=== PATIENT | male | born 1945 | race Caucasian/White ===

== ENCOUNTER 2016-10-06 10:59 | Inpatient (IN) | payer MEDICARE ==
[2016-10-06] MEDS ORDERED: NITROGLYCERIN OINT 1 INCH/GM PACKET TOPICAL STA (11:29)
--- NOTE | 2016-10-06 11:33 | ED ---
General Adult HPI - General Chief complaint: Chest Pain Stated complaint: Chest pain Time Seen by Provider: 10/06/16 11:05 Source: patient, RN notes reviewed Mode of arrival: wheelchair Limitations: no limitations - History of Present Illness Initial comments: This is a 71-year-old male who presents emergency Department complaining that on Thursday while pushing a cart at the grocery store he started having chest pain which radiated to both jaws and he became short of breath and diaphoretic. Patient states the pain lasted for about 10 minutes he took a couple aspirin and relaxed and the pain eventually went away. Patient states he hasn't had that particular pain since however he hasn't felt quite right since that time. Patient states yesterday he felt under the weather and just didn't have the energy normally does. Patient denies any chest pain currently. Patient denies any palpitations. Patient denies shortness of breath or difficulty breathing. Patient denies headache patient denies numbness weakness. Patient denies any lightheadedness dizziness or near syncopal episode. Patient denies any abdominal pain patient denies nausea vomiting or diarrhea. Patient denies any recent fever chills or cough per patient does state that he has some postnasal drip. Patient denies any recent injury or trauma. - Related Data Home Medications Medication Instructions Recorded Confirmed Aspirin 325 mg PO DAILY PRN 10/06/16 10/06/16 Lisinopril-Hctz 10-12.5 mg 1 tab PO DAILY 10/06/16 10/06/16 [Zestoretic 10-12.5] Naproxen Sodium [Aleve] 440 mg PO DAILY PRN 10/06/16 10/06/16 Allergies Allergy/AdvReac Type Severity Reaction Status Date / Time No Known Allergies Allergy Verified 10/06/16 11:35 Review of Systems ROS Statement: Those systems with pertinent positive or pertinent negative responses have been documented in the HPI. ROS Other: All systems not noted in ROS Statement are negative. Past Medical History Past Medical History: Hypertension Additional Past Medical History / Comment(s): PE History of Any Multi-Drug Resistant Organisms: None Reported Past Surgical History: Hernia Repair Past Psychological History: No Psychological Hx Reported Smoking Status: Never smoker Past Alcohol Use History: None Reported Past Drug Use History: None Reported General Exam - General Exam Comments Initial Comments: GENERAL: Patient is well-developed and well-nourished. Patient is nontoxic and well- hydrated and is in no acute distress. ENT: Neck is soft and supple. No significant lymphadenopathy is noted. Oropharynx is clear. Moist mucous membranes. Neck has full range of motion without eliciting any pain. EYES: The sclera were anicteric and conjunctiva were pink and moist. Extraocular movements were intact and pupils were equal round and reactive to light. Eyelids were unremarkable. PULMONARY: Unlabored respirations. Good breath sounds bilaterally. No audible rales rhonchi or wheezing was noted. CARDIOVASCULAR: There is a regular rate and rhythm without any murmurs gallops or rubs. ABDOMEN: Soft and nontender with normal bowel sounds. No palpable organomegaly was noted. There is no palpable pulsatile mass. SKIN: Skin is clear with no lesions or rashes and otherwise unremarkable. NEUROLOGIC: Patient is alert and oriented x3. Cranial nerves II through XII are grossly intact. Motor and sensory are also intact. Normal speech, volume and content. Symmetrical smile. MUSCULOSKELETAL: Normal extremities with adequate strength and full range of motion. No lower extremity swelling or edema. No calf tenderness. LYMPHATICS: No significant lymphadenopathy is noted PSYCHIATRIC: Normal psychiatric evaluation. Normal interpersonal interactions appears functionally intact in deals appropriately with others. No signs of depression. No signs of anxiety. Limitations: no limitations Course Vital Signs 10/06/16 10/06/16 11:03 11:43 Temperature 99.9 F H Pulse Rate 90 78 Respiratory 22 18 Rate Blood Pressure 151/79 143/75 O2 Sat by Pulse 96 97 Oximetry Medical Decision Making - Medical Decision Making EKG shows normal sinus rhythm at a rate of 89 bpm IL interval 206 QRS is 84 QT interval 340 QTC is 413 per patient's EKG shows no ST segment elevation or depression or T-wave abdomen is noted. Chest the chest shows no acute abnormality. Patient's troponin came back elevated so I started the patient on heparin immediately. I consider this a non-STEMI I consult the doctor because he agreed to admit the patient I wrote admit orders consult cardiology. - Lab Data Result diagrams: 10/06/16 11:30 10/06/16 11:30 Lab Results 10/06/16 10/06/16 10/06/16 Range/Units 11:30 11:30 11:30 WBC 6.0 (3.8-10.6) k/uL RBC 4.90 (4.30-5.90) m/uL Hgb 15.0 (13.0-17.5) gm/dL Hct 44.8 (39.0-53.0) % MCV 91.4 (80.0-100.0) fL MCH 30.7 (25.0-35.0) pg MCHC 33.6 (31.0-37.0) g/dL RDW 12.8 (11.5-15.5) % Plt Count 211 (150-450) k/uL Neutrophils % 57 % Lymphocytes % 30 % Monocytes % 8 % Eosinophils % 2 % Basophils % 1 % Neutrophils # 3.4 (1.3-7.7) k/uL Lymphocytes # 1.8 (1.0-4.8) k/uL Monocytes # 0.5 (0-1.0) k/uL Eosinophils # 0.1 (0-0.7) k/uL Basophils # 0.0 (0-0.2) k/uL PT (9.0-12.0) sec INR (<1.1) APTT (22.0-30.0) sec Sodium 140 (137-145) mmol/L Potassium 4.1 (3.5-5.1) mmol/L Chloride 106 (98-107) mmol/L Carbon Dioxide 23 (22-30) mmol/L Anion Gap 11 mmol/L BUN 20 (9-20) mg/dL Creatinine 0.87 (0.66-1.25) mg/dL Est GFR (MDRD) Af Amer >60 (>60 ml/min/1.73 sqM) Est GFR (MDRD) Non-Af >60 (>60 ml/min/1.73 sqM) Glucose 109 H (74-99) mg/dL Calcium 9.6 (8.4-10.2) mg/dL Magnesium 2.1 (1.6-2.3) mg/dL Total Bilirubin 1.0 (0.2-1.3) mg/dL AST 25 (17-59) U/L ALT 34 (21-72) U/L Alkaline Phosphatase 57 (38-126) U/L Total Creatine Kinase 75 (55-170) U/L CK-MB (CK-2) 1.9 (0.0-2.4) ng/mL CK-MB (CK-2) Rel Index 2.5 Troponin I 0.253 H* (0.000-0.034) ng/mL Total Protein 7.8 (6.3-8.2) g/dL Albumin 4.5 (3.5-5.0) g/dL 10/06/16 Range/Units 11:30 WBC (3.8-10.6) k/uL RBC (4.30-5.90) m/uL Hgb (13.0-17.5) gm/dL Hct (39.0-53.0) % MCV (80.0-100.0) fL MCH (25.0-35.0) pg MCHC (31.0-37.0) g/dL RDW (11.5-15.5) % Plt Count (150-450) k/uL Neutrophils % % Lymphocytes % % Monocytes % % Eosinophils % % Basophils % % Neutrophils # (1.3-7.7) k/uL Lymphocytes # (1.0-4.8) k/uL Monocytes # (0-1.0) k/uL Eosinophils # (0-0.7) k/uL Basophils # (0-0.2) k/uL PT 10.7 (9.0-12.0) sec INR 1.1 (<1.1) APTT 23.4 (22.0-30.0) sec Sodium (137-145) mmol/L Potassium (3.5-5.1) mmol/L Chloride (98-107) mmol/L Carbon Dioxide (22-30) mmol/L Anion Gap mmol/L BUN (9-20) mg/dL Creatinine (0.66-1.25) mg/dL Est GFR (MDRD) Af Amer (>60 ml/min/1.73 sqM) Est GFR (MDRD) Non-Af (>60 ml/min/1.73 sqM) Glucose (74-99) mg/dL Calcium (8.4-10.2) mg/dL Magnesium (1.6-2.3) mg/dL Total Bilirubin (0.2-1.3) mg/dL AST (17-59) U/L ALT (21-72) U/L Alkaline Phosphatase (38-126) U/L Total Creatine Kinase (55-170) U/L CK-MB (CK-2) (0.0-2.4) ng/mL CK-MB (CK-2) Rel Index Troponin I (0.000-0.034) ng/mL Total Protein (6.3-8.2) g/dL Albumin (3.5-5.0) g/dL Critical Care Time Critical Care Time: Yes Total Critical Care Time: 35 Disposition Clinical Impression: Non-STEMI (non-ST elevated myocardial infarction) Disposition: ADMITTED IP TO THIS [facility] Time of Disposition: 12:44
[2016-10-06] MEDS: ASPIRIN 81 MG CHEW PO STA ×2 (11:36→11:42)
[2016-10-06 11:47] LABS: Basophils % (A) 1 %; CH 31.7; CHCM 34.8; Eosinophils # (A) 0.1 k/uL (0-0.7); Eosinophils % (A) 2 %; HCT 44.8 % (39.0-53.0); HDW 2.34; Luc # (Auto) 0.14; Luc % (Auto) 2; Lymphocytes # (A) 1.8 k/uL (1.0-4.8); Lymphocytes % (A) 30 %; MCH 30.7 pg (25.0-35.0); MCHC 33.6 g/dL (31.0-37.0); MCV 91.4 fL (80.0-100.0); Mean Platelet Volume 7.1; Monocytes # (A) 0.5 k/uL (0-1.0); Monocytes % (A) 8 %; Neutrophils # (A) 3.4 k/uL (1.3-7.7); Neutrophils % (A) 57 %; RDW 12.8 % (11.5-15.5); WBC (Perox) 5.84
[2016-10-06 11:55] LABS: ALT 34 U/L (21-72); AST 25 U/L (17-59); Alkaline Phosphatase 57 U/L (38-126); Anion Gap 11 mmol/L; Blood Urea Nitrogen 20 mg/dL (9-20); Calcium 9.6 mg/dL (8.4-10.2); Carbon Dioxide 23 mmol/L (22-30); Chloride 106 mmol/L (98-107); Glucose 109 mg/dL (74-99); Magnesium 2.1 mg/dL (1.6-2.3); Non-African American GFR(MDRD) >60 (>60 ml/min/1.73 sqM); Potassium 4.1 mmol/L (3.5-5.1); Sodium 140 mmol/L (137-145); Total Protein 7.8 g/dL (6.3-8.2)
--- NOTE | 2016-10-06 12:12 | XR ---
EXAMINATION TYPE: XR chest 2V DATE OF EXAM: 10/06/2016 12:08 PM HISTORY: Chest Pain. REFERENCE: NONE. FINDINGS: There are mild increased markings throughout the chest. There is no focal pneumonia or chano a. The heart is not enlarged. No pleural fluid is seen. There is a questionable 1 cm nodule at the le ft lung base. There is hypertrophic spondylosis within the spine. IMPRESSION: QUESTIONABLE LEFT LOWER LOBE PULMONARY NODULE. A CT SCAN OF THE CHEST WOULD BE SUGGESTED.
[2016-10-06 12:19] LABS: INR 1.1 (<1.1); Partial Thromboplastin Time 23.4 sec (22.0-30.0); Prothrombin Time 10.7 sec (9.0-12.0)
[2016-10-06 12:29] LABS: Creatine Kinase MB 1.9 ng/mL (0.0-2.4)
[2016-10-06 12:33] LABS: Troponin I 0.253 ng/mL (0.000-0.034)
[2016-10-06] MEDS ORDERED: HEPARIN SODIUM,PORCINE 5,000 UNIT/ML 1 ML VIAL IV ONE (12:33)
--- NOTE | 2016-10-06 14:21 | P.CRDCN ---
History of Present Illness Consult date: 10/06/16 Chief complaint: Chest discomfort History of present illness: This is a pleasant 71-year-old male patient with a past medical history significant for hypertension presented to the emergency room complaining of chest discomfort. He was in his usual state of health where he was doing some shopping at [employer] on Thursday and felt a squeezing sensation in the chest radiated to the neck and the jaw and was associated with sweating. He called his primary care physician today and the patient was referred to the emergency room. The EKG showed sinus rhythm with nonspecific changes in the inferior leads. The blood work came in to be abnormal showing abnormal troponin. I recommended proceeding with heart catheterization. Past Medical History Past Medical History: Hypertension Additional Past Medical History / Comment(s): PE History of Any Multi-Drug Resistant Organisms: None Reported Past Surgical History: Hernia Repair Past Psychological History: No Psychological Hx Reported Smoking Status: Never smoker Past Alcohol Use History: None Reported Past Drug Use History: None Reported Medications and Allergies Home Medications Medication Instructions Recorded Confirmed Type Aspirin 325 mg PO DAILY PRN 10/06/16 10/06/16 History Lisinopril-Hctz 10-12.5 mg 1 tab PO DAILY 10/06/16 10/06/16 History [Zestoretic 10-12.5] Naproxen Sodium [Aleve] 440 mg PO DAILY PRN 10/06/16 10/06/16 History Allergies Allergy/AdvReac Type Severity Reaction Status Date / Time No Known Allergies Allergy Verified 10/06/16 11:35 Physical Exam - Constitutional General appearance: no acute distress - Respiratory Respiratory: bilateral: CTA - Cardiovascular Rhythm: regular Heart sounds: normal: S1, S2 Results 10/06/16 11:30 10/06/16 11:30 Current Medications Generic Name Dose Route Start Last Admin Trade Name Freq PRN Reason Stop Dose Admin Aspirin 325 mg 10/07/16 09:00 Aspirin PO DAILY [facility] Heparin Sodium/Dextrose 25,000 500 mls @ 19.98 mls/hr 10/06/16 12:45 unit/ IV Solution IV .Q24H [facility] Protocol 11.3 UNITS/KG/HR Nitroglycerin 1 inch 10/06/16 18:00 Nitro-Bid Oint TOPICAL Q6HR [facility] Nitroglycerin 0.4 mg 10/06/16 12:44 Nitrostat SUBLINGUAL Q5M PRN Chest Pain Assessment and Plan Plan: Assessment Acute non-STEMI Hypertension Plan I recommended proceeding with heart catheterization
[2016-10-06] MEDS: HEPARIN SODIUM,PORCINE/D5W PMX 25,000 UNIT in DEXTROSE/WATER 1 500ML.BAG IV SCH ×2 (14:27→17:46)
[2016-10-06] MEDS ORDERED: IV FLUID CONTINUATION 1,000 ML IV ONE (14:30)
[2016-10-06] MEDS ORDERED: MIDAZOLAM 2 MG/2 ML VIAL ONE ×2 (14:55→15:31)
[2016-10-06] MEDS ORDERED: MIDAZOLAM 2 MG/2 ML VIAL IV ONE ×2 (15:07→15:33)
[2016-10-06] MEDS ORDERED: LIDOCAINE 2% INJ 20 MG/ML IV ONE (15:10)
[2016-10-06] MEDS ORDERED: IOHEXOL 350 MG/ML 125ML BOTTLE INJ ONE (15:46)
[2016-10-06] MEDS ORDERED: RX INFO: IV CONTRAST WAS GIVEN 1 EACH MISC MISCELLANE PRN (15:48)
[2016-10-06] MEDS ORDERED: SODIUM CHLORIDE 0.9% 1,000 ML IV SCH (16:00)
[2016-10-06] MEDS ORDERED: MD COMMUNICATION TO PHARMACY 1 EACH MISC PO ONE (16:18)
--- NOTE | 2016-10-06 16:21 | P.GSCN ---
History of Present Illness Consult date: 10/06/16 Reason for Consult: evaluation for coronary artery bypass grafting Requesting physician: Denys Morales History of present illness: patient is a 71 years old gentleman with past medical history of hypertension who experienced an episode of chest pain while shopping at the [employer] on Thursday. Patient presented to the emergency room today sent by his primary care physician and was found to have positive troponin with mild EKG changes. Cardiac position performed showed significant LAD and circumflex disease. Cardiac surgical consult was called. Patient denies any prior chest pain. Review of Systems - Cardiovascular Reports chest pain, Reports high blood pressure Past Medical History Past Medical History: Hypertension Additional Past Medical History / Comment(s): PE after hernia surgery 20y ago History of Any Multi-Drug Resistant Organisms: None Reported Past Surgical History: Hernia Repair Past Psychological History: No Psychological Hx Reported Smoking Status: Never smoker Past Alcohol Use History: None Reported Past Drug Use History: None Reported Medications and Allergies Home Medications Medication Instructions Recorded Confirmed Type Aspirin 325 mg PO DAILY PRN 10/06/16 10/06/16 History Lisinopril-Hctz 10-12.5 mg 1 tab PO DAILY 10/06/16 10/06/16 History [Zestoretic 10-12.5] Naproxen Sodium [Aleve] 440 mg PO DAILY PRN 10/06/16 10/06/16 History Allergies Allergy/AdvReac Type Severity Reaction Status Date / Time No Known Allergies Allergy Verified 10/06/16 11:35 Surgical - Exam Vital Signs Temp Pulse Resp BP Pulse Ox 99.9 F H 90 22 151/79 96 10/06/16 11:03 10/06/16 11:03 10/06/16 11:03 10/06/16 11:03 10/06/16 11:03 - General well developed, well nourished, no distress - Eyes normal ocular movement, no icteric - ENT no hearing loss, no congestion - Neck no masses, trachea midline - Respiratory normal respiratory effort, clear to auscultation - Cardiovascular Rhythm: regular Heart Sounds: normal: S1, S2 - Abdomen Abdomen: soft, non tender, no guarding, no rigid, no rebound - Genitourinary deferred - Rectum deferred - Neurologic normal coordination patient has no peripheral edema. He has no varicose veins. He has a positive modified Hi's test on the left and negative on the right Results - Labs 10/06/16 11:30 10/06/16 11:30 - Imaging Additional studies: cardiac catheterization showed preserved left ventricle function and severe disease of the LAD with aneurysmal medication beyond that involving an close to the moderate size second marginal with a JER 2 flow in the LAD. There is a significant proximal circumflex stenosis. The RCA is dominant with no flow- limiting lesion Assessment and Plan Plan: 71s old gentleman who presented with non-ST elevation myocardial infarction and significant double vessel coronary artery disease. Preserved left ventricular function. Patient candidate for coronary artery bypass grafting during this admission. We'll be initiating preoperative workup. We'll be following the patient closely with you. Thank you for the privilege of this consult
--- NOTE | 2016-10-06 17:34 | US ---
EXAMINATION TYPE: US CAROTID DUPLEX BILAT DATE OF EXAM: 10/06/2016 5:01 PM COMPARISON: NONE CLINICAL HISTORY: Ankle Brachial Index (DAVID) . Pre op cardiac surgery EXAM MEASUREMENTS: RIGHT: Peak Systolic Velocity (PSV) cm/sec ----- Right CCA: 59.2 ----- Right ICA: 81.2 ----- Right ECA: 99.5 ICA/CCA ratio: 1.4 RIGHT: End Diastole cm/sec ----- Right CCA: 12.1 ----- Right ICA: 25.2 ----- Right ECA: 8.9 LEFT: Peak Systolic Velocity (PSV) cm/sec ----- Left CCA: 76.8 ----- Left ICA: 79.0 ----- Left ECA: 135.5 ICA/CCA ratio: 1.0 LEFT: End Diastole cm/sec ----- Left CCA: 17.5 ----- Left ICA: 19.7 ----- Left ECA: 7.9 VERTEBRALS (direction of flow): Right Vertebral: Antegrade Left Vertebral: Antegrade IMPRESSION: 1. MILD PLAQUE NOTED BILATERAL BIFURCATIONS. 2. SLIGHTLY INCREASED VELOCITIES LEFT ECA. 3. NEGATIVE FOR SIGNIFICANT CAROTID STENOSIS.
[2016-10-06 18:23] LABS: Creatine Kinase MB 1.2 ng/mL (0.0-2.4)
[2016-10-06 18:30] LABS: Troponin I 0.179 ng/mL (0.000-0.034)
[2016-10-06] MEDS: NITROGLYCERIN OINT 1 INCH/GM PACKET TOPICAL SCH (18:46)
--- NOTE | 2016-10-06 19:08 | P.CNPUL ---
History of Present Illness Consult date: 10/06/16 Requesting physician: Felicitas Boo Reason for consult: other (preoperative pulmonary clearance) Chief complaint: chest pain History of present illness: survey 71-year-old white male with history of hypertension, remote history of pulmonary embolism following hernia surgery, patient was on anticoagulation therapy for one year. At that time he was taken care of by Dr. Rehman. Since then, the patient did not have any history to suggest any thromboembolic disease. Patient presented with acute onset of chest pain while shopping at the [employer] on Thursday, upon presentation to the ER, patient was found to have positive troponin and EKG changes. Cardiac catheterization showed significant LAD and circumflex disease. Patient was seen by surgery on consultation, and he is scheduled to undergo surgery sometime later this week. Pulmonary-ernandez patient has no history of COPD, he is a nonsmoker, physically active, can even run a mile before this episode of chest pain. No cough no wheezing no shortness of breath. Patient did have remote history of pulmonary embolism about 20 years ago provoked by hernia surgery. Presently the patient is asymptomatic, no pulmonary symptoms, no headaches no blurred vision no dizziness. No nausea no vomiting no abdominal pain no melena no hematemesis is no dysuria frequency or urgency. Chest x-ray questioned a small tiny nodule, I reviewed the chest x-ray, the finding is not significant, I believe this is more of a summation shadow or could be a nipple shadow, but patient this can be addressed with x-rays with nipple markers, and down the line if the nodule is true one can consider CT of the chest, but at this point I don't see the value of a CT of the chest.index of suspicion for malignancy is rather low. Review of Systems 14 point review of systems were obtained, please refer to pertinent positives and negatives as per HPI. Past Medical History Past Medical History: Hypertension Additional Past Medical History / Comment(s): PE after hernia surgery 20y ago History of Any Multi-Drug Resistant Organisms: None Reported Past Surgical History: Hernia Repair Past Psychological History: No Psychological Hx Reported Smoking Status: Never smoker Past Alcohol Use History: None Reported Past Drug Use History: None Reported Medications and Allergies Home Medications Medication Instructions Recorded Confirmed Type Aspirin 325 mg PO DAILY PRN 10/06/16 10/06/16 History Lisinopril-Hctz 10-12.5 mg 1 tab PO DAILY 10/06/16 10/06/16 History [Zestoretic 10-12.5] Naproxen Sodium [Aleve] 440 mg PO DAILY PRN 10/06/16 10/06/16 History Allergies Allergy/AdvReac Type Severity Reaction Status Date / Time No Known Allergies Allergy Verified 10/06/16 11:35 Physical Exam Vitals: Vital Signs Temp Pulse Pulse Resp BP BP Pulse Ox 10/06/16 18:25 98 F 79 18 124/76 96 10/06/16 17:40 20 136/72 98 10/06/16 17:10 18 136/70 98 10/06/16 16:40 18 137/70 98 10/06/16 16:25 18 141/70 98 10/06/16 16:10 18 136/79 98 10/06/16 15:55 18 131/68 98 10/06/16 14:29 97.8 F 98 18 137/65 98 10/06/16 13:33 87 18 135/57 98 Intake and Output 10/06/16 10/06/16 10/06/16 06:59 14:59 22:59 Intake Total 60 250 Output Total 250 Balance 60 0 Intake: IV 50 100 Sodium Chloride 0.9% 1, 100 000 ml @ 100 mls/hr IV . Q10H [facility] Rx#:[id number] Amount of Fluid Infused ( 10 ml) Oral 150 Output: Urine 250 Physical Exam: Revealed a 71-year-old white male in no distress. HEENT:[Neck is supple.] [No neck masses.] [No thyromegaly.] [No JVD.] Chest: [Clear throughout, no crackles, no rhonchi, no wheezes.] Cardiac Exam: [Normal S1 and S2, no S3 gallop, no murmur.] Abdomen: [Soft, nontender, no megaly, no rebound, no guarding, normal bowel sounds.] Extremities: [No clubbing, no edema, no cyanosis.] Neurological Exam: [No focal neurologic deficit.] Results - Laboratory Findings CBC and BMP: 10/06/16 11:30 10/06/16 11:30 PT/INR, D-dimer PT 10.7 sec (9.0-12.0) 10/06/16 11:30 INR 1.1 (<1.1) 10/06/16 11:30 Abnormal lab findings: Abnormal Labs 10/06/16 17:22 Troponin I 0.179 H* - Diagnostic Findings Chest x-ray: image reviewed Assessment and Plan Plan: impression: 1 acute non-ST elevation myocardial infarction, 2.vessel coronary artery disease with preserved LV function 3 nonspecific left lower lobe pulmonary nodule could be a summation shadow or could be a nipple shadow, recommend in the next 48 hours follow-up chest x-ray with nipple markers/left nipple. Granted, patient will need surgery, and he'll be cleared for surgery, the nodule could be monitored on outpatient basis. 4. Remote history of pulmonary embolism provoked by hernia surgery, patient did not require long-term course of anticoagulation therapy. And has been free of any thromboembolic disease for the last 20 years. Recommendation: Patient will be cleared for surgery, considered low operative risk. Time with Patient: Greater than 30
[2016-10-06 20:24] LABS: Appearance,Urine Clear (Clear); Bilirubin,Urine Negative (Negative); Glucose,Urine (UA) Negative (Negative); Ketones,Urine Negative (Negative); Leukocyte Esterase,Urine Negative (Negative); Nitrite,Urine Negative (Negative); Protein,Urine Negative (Negative); Specific Gravity,Urine 1.012 (1.001-1.035); UA Billing (MACRO vs. MICRO) CHEM; Urobilinogen,Urine <2.0 mg/dL (<2.0)
[2016-10-06] MEDS: ATORVASTATIN 80 MG TAB PO SCH (20:37)
[2016-10-06] MEDS: METOPROLOL TARTRATE 12.5 MG TAB PO SCH (20:37)
[2016-10-07] MEDS: NITROGLYCERIN OINT 1 INCH/GM PACKET TOPICAL SCH ×5 (00:04→16:58)
[2016-10-07 00:17] LABS: Creatine Kinase MB 1.1 ng/mL (0.0-2.4)
[2016-10-07 00:19] LABS: Troponin I 0.195 ng/mL (0.000-0.034)
[2016-10-07] MEDS ORDERED: HEPARIN SODIUM,PORCINE 5,000 UNIT/ML 1 ML VIAL IV STA (01:06)
[2016-10-07 06:59] LABS: Basophils % (A) 0 %; Eosinophils # (A) 0.1 k/uL (0-0.7); Eosinophils % (A) 1 %; HCT 42.3 % (39.0-53.0); HDW 2.34; HGB 14.3 gm/dL (13.0-17.5); Luc # (Auto) 0.13; Luc % (Auto) 2; Lymphocytes # (A) 1.8 k/uL (1.0-4.8); Lymphocytes % (A) 23 %; MCHC 33.8 g/dL (31.0-37.0); MCV 91.7 fL (80.0-100.0); Mean Platelet Volume 7.3; Monocytes # (A) 0.6 k/uL (0-1.0); Monocytes % (A) 8 %; Neutrophils # (A) 5.3 k/uL (1.3-7.7); Neutrophils % (A) 66 %; RBC 4.61 m/uL (4.30-5.90); RDW 12.6 % (11.5-15.5)
[2016-10-07 07:03] LABS: INR 1.1 (<1.1); Partial Thromboplastin Time 76.2 sec (22.0-30.0); Prothrombin Time 11.4 sec (9.0-12.0)
[2016-10-07 07:07] LABS: ALT 33 U/L (21-72); AST 23 U/L (17-59); Alkaline Phosphatase 49 U/L (38-126); Anion Gap 7 mmol/L; Blood Urea Nitrogen 17 mg/dL (9-20); Calcium 9.3 mg/dL (8.4-10.2); Carbon Dioxide 24 mmol/L (22-30); Chloride 105 mmol/L (98-107); Cholesterol 202 mg/dL (<200); Glucose 109 mg/dL (74-99); HDL Cholesterol 39 mg/dL (40-60); Non-African American GFR(MDRD) >60 (>60 ml/min/1.73 sqM); Potassium 4.2 mmol/L (3.5-5.1); Sodium 136 mmol/L (137-145); Total Protein 6.7 g/dL (6.3-8.2); Triglycerides 157 mg/dL (<150)
--- NOTE | 2016-10-07 07:49 | CC ---
DATE OF SERVICE: 10/06/2016 PERFORMING PHYSICIAN: Denys Morales MD, Tank Truck Milk Receiver. PROCEDURE PERFORMED: 1. Selective right and left coronary angiogram. 2. Left heart catheterization. 3. Left ventriculography. INDICATION: This is a pleasant 71-year-old gentleman with a past medical history significant for hypertension, who presented to the hospital with chest discomfort. The EKG showed only nonspecific changes in the inferior leads. The cardiac enzymes were checked and came in to be slightly abnormal. The patient was ruled out for acute non-ST elevation myocardial infarction. APPROACH: Right common femoral artery. COMPLICATIONS: None. LEVEL OF SEDATION: Moderate. PROCEDURE DESCRIPTION: After obtaining an informed consent, the patient was brought to the Cardiac Sales Team Recruiter. Right common femoral artery was cannulated using micropuncture technique. The micropuncture wire passed easily, then I placed a 6 Armenian sheath in the right common femoral artery. Subsequently, I did selective right and left coronary angiogram using JR4 and JL4 catheters. After that, I did left heart catheterization and LV gram using a 6 Armenian pigtail catheter. The procedure was completed without any complication. Also, I did a left heart catheterization and LV gram using a 6 Armenian pigtail catheter. SELECTIVE CORONARY ANGIOGRAM: 1. The right coronary artery is a large-caliber vessel and it is a dominant vessel. The proximal RCA appeared to have mild disease only. The mid RCA appeared to have mild disease only as well. The RCA distally by the bifurcation of PDA and PLV branch has a lesion that seems to be in the range of 50%. The PDA branch and PLV branch appeared to have mild disease only. 2. The left main is angiographically normal. It bifurcates into the left circumflex and left anterior descending artery. 3. The left circumflex is a large-caliber vessel and it is a nondominant vessel. The proximal left circumflex appeared to have mild disease only. The mid left circumflex appeared to have a critical lesion in the range of 80% to 90%. The circ distally appeared to be angiographically normal. 4. The proximal LAD by the bifurcation of a large diag branch appears to have a critical lesion in the range of 90% to 95%. There was aneurysm seen after the lesion. The lesion is a long tubular lesion. The LAD distally appeared to be angiographically normally. The first diag branch of the LAD appears to have mild disease only. HEMODYNAMICS: The left ventricular end-diastolic pressure was of 14 mmHg and no gradient was identified across the aortic valve. Left ventriculography was performed in the FELIX projection and using a power injection. The left ventricular systolic function seems to be normal with an ejection fraction in the range of 50% to 55%. I could not see any obvious wall motion abnormalities. CONCLUSION: 1. 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 2. Intermediate disease involving the distal right coronary artery. 3. Preserved left ventricular systolic function. 4. Normal left ventricular end-diastolic pressure. POSTPROCEDURE MANAGEMENT: I consulted Dr. Jay to evaluate the patient for coronary artery bypass grafting.
[2016-10-07 08:23] LABS: Hemoglobin A1C 5.7 % (4.2-6.1)
[2016-10-07] MEDS: METOPROLOL TARTRATE 12.5 MG TAB PO SCH ×2 (08:23→20:29)
[2016-10-07] MEDS: ASPIRIN 325 MG TAB PO SCH (08:23)
[2016-10-07 08:24] LABS: Hepatitis B Surface Ag Index 0.05
[2016-10-07 08:29] LABS: Hepatitis B Core IgM Index 0.06
[2016-10-07 08:41] LABS: Hepatitis C Virus IgG Index 0.01
[2016-10-07 08:45] LABS: Hepatitis C Virus IgG Ab Negative (Negative)
--- NOTE | 2016-10-07 12:24 | ECHOF ---
Referral Reason:pre-op cabg MEASUREMENTS -------- HEIGHT: 172.7 cm WEIGHT: 88.0 kg BP: 133/77 IVSd: 1.6 cm (0.6 - 1.1) LVIDd: 3.1 cm (3.9 - 5.3) LVPWd: 1.5 cm (0.6 - 1.1) IVSs: 1.7 cm LVIDs: 1.5 cm LVPWs: 1.8 cm Ao Diam: 3.6 cm (2.0 - 3.7) AV Cusp: 2.4 cm (1.5 - 2.6) LA Diam: 3.4 cm (2.7 - 3.8) MV EXCURSION: 12.148 mm (> 18.000) MV EF SLOPE: 68 mm/s (70 - 150) EPSS: 0.4 cm MV E Alex: 0.64 m/s MV DecT: 188 ms MV A Alex: 0.72 m/s MV E/A Ratio: 0.88 RAP: 5.00 mmHg RVSP: 11.16 mmHg FINDINGS -------- Sinus rhythm. This was a technically good study. There is moderate concentric left ventricular hypertrophy. Overall left ventricular systolic function is normal with, an EF between 55 - 60 %. The right ventricle is normal in size and function. The left atrium is normal in size. The right atrium is normal in size. Aortic valve is trileaflet and is mildly thickened. The mitral valve leaflets are mildly thickened. There is trace mitral regurgitation. Trace tricuspid regurgitation present. The right ventricular systolic pressure, as measured by Doppler, is 11.16mmHg. Pulmonic valve appears structurally normal. The aortic root size is normal. The pericardium is normal. CONCLUSIONS -------- 1. Sinus rhythm. 2. Trace tricuspid regurgitation present. 3. The right ventricular systolic pressure, as measured by Doppler, is 11.16mmHg. 4. Pulmonic valve appears structurally normal. 5. The aortic root size is normal. 6. The pericardium is normal. 7. This was a technically good study. 8. There is moderate concentric left ventricular hypertrophy. 9. The right ventricle is normal in size and function. 10. The left atrium is normal in size. 11. The right atrium is normal in size. 12. Aortic valve is trileaflet and is mildly thickened. 13. The mitral valve leaflets are mildly thickened. 14. There is trace mitral regurgitation. CONSUMER INSIGHT ANALYST: Brenda Cristina RDCS
--- NOTE | 2016-10-07 14:27 | P.PN ---
Subjective Principal diagnosis: Coronary artery disease, patient is scheduled to undergo CABG in 2 days. 71-year-old white male with history of hypertension, remote history of pulmonary embolism following hernia surgery, patient was on anticoagulation therapy for one year. At that time he was taken care of by Dr. Rehman. Since then, the patient did not have any history to suggest any thromboembolic disease. Patient presented with acute onset of chest pain while shopping at the [employer] on Thursday, upon presentation to the ER, patient was found to have positive troponin and EKG changes. Cardiac catheterization showed significant LAD and circumflex disease. Patient was seen by surgery on consultation, and he is scheduled to undergo surgery sometime later this week. Pulmonary-ernandez patient has no history of COPD, he is a nonsmoker, physically active, can even run a mile before this episode of chest pain. No cough no wheezing no shortness of breath. Patient did have remote history of pulmonary embolism about 20 years ago provoked by hernia surgery. Presently the patient is asymptomatic, no pulmonary symptoms, no headaches no blurred vision no dizziness. No nausea no vomiting no abdominal pain no melena no hematemesis is no dysuria frequency or urgency. Chest x-ray questioned a small tiny nodule, I reviewed the chest x-ray, the finding is not significant, I believe this is more of a summation shadow or could be a nipple shadow, but patient this can be addressed with x-rays with nipple markers, and down the line if the nodule is true one can consider CT of the chest, but at this point I don't see the value of a CT of the chest.index of suspicion for malignancy is rather low. On 10/07/2016, patient continues to do well, no cough no wheezing no shortness of breath, I did recommend repeat chest x-ray with nipple markers on the left side , and if necessary, may order a CT of the chest without contrast. However, presence of a tiny nodule should not delay any plans for anticipated surgery for CABG. A shunt has no pulmonary symptoms whatsoever. Labs from today were all reviewed including a normal CBC and normal basic metabolic profile. Heparin is therapeutic with a PTT of 45.9. Objective - Vital Signs Vital signs: Vital Signs Temp 96.8 F L 10/07/16 11:59 Pulse 68 10/07/16 11:59 Resp 20 10/07/16 11:59 BP 118/68 10/07/16 11:59 Pulse Ox 96 10/07/16 11:59 Intake & Output 10/06/16 10/07/16 10/07/16 18:59 06:59 18:59 Intake Total 310 1259.564 311.480 Output Total 250 1750 550 Balance 60 -490.436 -238.520 Weight 88 kg Intake: IV 150 1113.71 Heparin Sodium,Porcine/ 113.71 D5w Pmx 25,000 unit In Dextrose/Water 1 500ml. bag @ 11.3 UNITS/KG/HR 19 .98 mls/hr IV .Q24H [facility] Rx#:[id number] Sodium Chloride 0.9% 1, 100 1000 000 ml @ 100 mls/hr IV . Q10H [facility] Rx#:[id number] Amount of Fluid Infused ( 10 ml) Intake, IV Titration 145.854 311.480 Amount Heparin Sodium,Porcine/ 145.854 311.480 D5w Pmx 25,000 unit In Dextrose/Water 1 500ml. bag @ 11.3 UNITS/KG/HR 19 .98 mls/hr IV .Q24H [facility] Rx#:[id number] Oral 150 Output: Urine 250 1750 550 Other: Voiding Method Urinal # Voids 1 - Exam Physical Exam: Revealed a 71-year-old white male in no distress. HEENT:[Neck is supple.] [No neck masses.] [No thyromegaly.] [No JVD.] Chest: [Clear throughout, no crackles, no rhonchi, no wheezes.] Cardiac Exam: [Normal S1 and S2, no S3 gallop, no murmur.] Abdomen: [Soft, nontender, no megaly, no rebound, no guarding, normal bowel sounds.] Extremities: [No clubbing, no edema, no cyanosis.] Neurological Exam: [No focal neurologic deficit.] - Labs CBC & Chem 7: 10/07/16 05:56 10/07/16 05:56 Labs: Abnormal Lab Results - Last 24 Hours (Table) 10/06/16 10/06/16 10/06/16 Range/Units 17:22 23:09 23:09 APTT 32.9 H (22.0-30.0) sec Sodium (137-145) mmol/L Glucose (74-99) mg/dL Troponin I 0.179 H* 0.195 H* (0.000-0.034) ng/mL Triglycerides (<150) mg/dL Cholesterol (<200) mg/dL LDL Cholesterol, Calc (0-99) mg/dL HDL Cholesterol (40-60) mg/dL 10/07/16 10/07/16 10/07/16 Range/Units 05:56 05:56 13:30 APTT 76.2 H 45.9 H (22.0-30.0) sec Sodium 136 L (137-145) mmol/L Glucose 109 H (74-99) mg/dL Troponin I (0.000-0.034) ng/mL Triglycerides 157 H (<150) mg/dL Cholesterol 202 H (<200) mg/dL LDL Cholesterol, Calc 132 H (0-99) mg/dL HDL Cholesterol 39 L (40-60) mg/dL Microbiology - Last 24 Hours (Table) 10/06/16 20:15 Urine Culture - Preliminary Urine,Clean Catch Assessment and Plan Plan: impression: 1 acute non-ST elevation myocardial infarction, 2.2vessel coronary artery disease with preserved LV function 3 nonspecific left lower lobe pulmonary nodule could be a summation shadow or could be a nipple shadow, recommend in the next 48 hours follow-up chest x-ray with nipple markers/left nipple. Granted, patient will need surgery, and he'll be cleared for surgery, the nodule could be monitored on outpatient basis. 4. Remote history of pulmonary embolism provoked by hernia surgery, patient did not require long-term course of anticoagulation therapy. And has been free of any thromboembolic disease for the last 20 years. Recommendation: Patient will be cleared for surgery, considered low operative risk. Time with Patient: Less than 30
[2016-10-07] MEDS: HEPARIN SODIUM,PORCINE/D5W PMX 25,000 UNIT in DEXTROSE/WATER 1 500ML.BAG IV SCH (15:22)
--- NOTE | 2016-10-07 15:27 | P.HPIM ---
History of Present Illness H&P Date: 10/07/16 Chief Complaint: Chest pain 8-year-old gentleman with history of hypertension remote history of PE comes in to the hospital with complaints of one episode of chest pain while he was at a grocery store 2 days prior to admission. Patient was walking into my are noted significant pressure in his chest radiating to his neck with associated diaphoresis. Patient thereafter went home and did not feel his self for the next 2 days hence came in to the hospital Thursday as recommended by his primary care physician. Patient was noted to have a positive troponin in the emergency room with subtle EKG changes cardiac catheterization was done on a semi-emergent basis was noted to have double vessel disease with significant LAD stenosis and circumflex disease patient was referred to the surgical team for consideration for CABG. Chest x-ray does reveal a pulmonary nodule. Today patient states that he is symptom free denies headaches blurry vision nausea vomiting diarrhea patient has never had history of tobacco use or exposure Review of Systems All systems: negative (Noted in HPI) Past Medical History Past Medical History: Hypertension Additional Past Medical History / Comment(s): PE after hernia surgery 20y ago, SEASONAL ALLERGIES History of Any Multi-Drug Resistant Organisms: None Reported Past Surgical History: Hernia Repair Additional Past Surgical History / Comment(s): RT INGUINAL HERNIA REPAIR Past Anesthesia/Blood Transfusion Reactions: No Reported Reaction Past Psychological History: No Psychological Hx Reported Additional Psychological History / Comment(s): PT LIVES WITH HIS IN S SINGLE STORY HOME THAT HAS 2 STEPS IN WHICH TO ENTER.NO PETS.PT IS INDEPENDANT. NO OUTSIDE SERVICES. NO HOPSITAL EQUIPMENT.PT SERVED IN THE [employer] WHEN YOUNGER. 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 Smoking Status: Never smoker Past Alcohol Use History: None Reported Past Drug Use History: None Reported - Past Family History Father Family Medical History: Congestive Heart Failure (CHF) Additional Family Medical History / Comment(s): AT AGE 90-CHF Mother Family Medical History: Congestive Heart Failure (CHF) Additional Family Medical History / Comment(s): IN HER 70'S-CHF Medications and Allergies Home Medications Medication Instructions Recorded Confirmed Type Aspirin 325 mg PO DAILY PRN 10/06/16 10/06/16 History Lisinopril-Hctz 10-12.5 mg 1 tab PO DAILY 10/06/16 10/06/16 History [Zestoretic 10-12.5] Naproxen Sodium [Aleve] 440 mg PO DAILY PRN 10/06/16 10/06/16 History Allergies Allergy/AdvReac Type Severity Reaction Status Date / Time No Known Allergies Allergy Verified 10/06/16 11:35 Physical Exam Vitals: Vital Signs Temp Pulse Pulse Resp BP BP Pulse Ox 10/07/16 11:59 96.8 F L 68 20 118/68 96 10/07/16 08:00 96.8 F L 73 20 125/67 94 L 10/07/16 03:59 97.3 F L 88 18 106/66 94 L 10/07/16 00:00 98.5 F 72 18 133/77 95 10/06/16 20:00 18 10/06/16 19:33 98.8 F 83 18 140/73 95 10/06/16 18:25 98 F 79 18 124/76 96 10/06/16 17:40 20 136/72 98 10/06/16 17:10 18 136/70 98 10/06/16 16:40 18 137/70 98 10/06/16 16:25 18 141/70 98 10/06/16 16:10 18 136/79 98 10/06/16 15:55 18 131/68 98 Intake and Output 10/07/16 10/07/16 10/07/16 06:59 14:59 22:59 Intake Total 1259.564 311.480 Output Total 525 550 Balance 734.564 -238.520 Intake: IV 1113.71 Heparin Sodium,Porcine/ 113.71 D5w Pmx 25,000 unit In Dextrose/Water 1 500ml. bag @ 11.3 UNITS/KG/HR 19 .98 mls/hr IV .Q24H [facility] Rx#:[id number] Sodium Chloride 0.9% 1, 1000 000 ml @ 100 mls/hr IV . Q10H [facility] Rx#:[id number] Intake, IV Titration 145.854 311.480 Amount Heparin Sodium,Porcine/ 145.854 311.480 D5w Pmx 25,000 unit In Dextrose/Water 1 500ml. bag @ 11.3 UNITS/KG/HR 19 .98 mls/hr IV .Q24H [facility] Rx#:[id number] Output: Urine 525 550 Other: Voiding Method Urinal # Voids 1 Weight 88 kg Physical exam Gen. appearance oriented 3 in no distress Neck is supple no JVD Lungs good air entry clear to auscultation no rhonchi or wheezing Heart S1-S2 heard regular rate and rhythm no murmurs appreciated Abdomen is soft nontender no organomegaly bowel sounds are intact Neurologically cranial nerves II-12 grossly intact no focal motor or sensory deficits noted Skin no abnormalities appreciated Results CBC & Chem 7: 10/07/16 05:56 10/07/16 05:56 Labs: Abnormal Lab Results - Last 24 Hours (Table) 10/06/16 10/06/16 10/06/16 Range/Units 17:22 23:09 23:09 APTT 32.9 H (22.0-30.0) sec Sodium (137-145) mmol/L Glucose (74-99) mg/dL Troponin I 0.179 H* 0.195 H* (0.000-0.034) ng/mL Triglycerides (<150) mg/dL Cholesterol (<200) mg/dL LDL Cholesterol, Calc (0-99) mg/dL HDL Cholesterol (40-60) mg/dL Crossmatch 10/07/16 10/07/16 10/07/16 Range/Units 05:56 05:56 05:56 APTT 76.2 H (22.0-30.0) sec Sodium 136 L (137-145) mmol/L Glucose 109 H (74-99) mg/dL Troponin I (0.000-0.034) ng/mL Triglycerides 157 H (<150) mg/dL Cholesterol 202 H (<200) mg/dL LDL Cholesterol, Calc 132 H (0-99) mg/dL HDL Cholesterol 39 L (40-60) mg/dL Crossmatch See Detail 10/07/16 Range/Units 13:30 APTT 45.9 H (22.0-30.0) sec Sodium (137-145) mmol/L Glucose (74-99) mg/dL Troponin I (0.000-0.034) ng/mL Triglycerides (<150) mg/dL Cholesterol (<200) mg/dL LDL Cholesterol, Calc (0-99) mg/dL HDL Cholesterol (40-60) mg/dL Crossmatch Microbiology - Last 24 Hours (Table) 10/07/16 08:15 Nasal Screen MRSA/MSSA ([facility]) - Preliminary Nasal Swab 10/06/16 20:15 Urine Culture - Preliminary Urine,Clean Catch Thrombosis Risk Factor Assmnt - Choose All That Apply Any of the Below Risk Factors Present?: Yes Each Factor Represents 1 point: Acute OR, Obesity (BMI >25) Other Risk Factors: Yes Each Risk Factor Represents 2 Points: Age 61-74 years Other congenital or acquired thrombophilia - If yes, enter type in comment: No Thrombosis Risk Factor Assessment Total Risk Factor Score: 4 Thrombosis Risk Factor Assessment Level: Moderate Risk Assessment and Plan Plan: #1 non-Q-wave myocardial infarction that is acute #2 history of pulmonary embolism that appears to be provoked her 3 history of hypertension #4 left lower lobe pulmonary nodule Plan Patient is being evaluated for an open heart surgery on Continue ongoing care patient is symptom-free aspirin to be continued DVT prophylaxis
--- NOTE | 2016-10-07 15:55 | P.PN ---
Subjective Principal diagnosis: Chest pain This is a pleasant 71-year-old gentleman with past medical history significant for hypertension who presented to the hospital with symptoms of chest discomfort. He was taken to the cardiac catheterization lab yesterday by Dr. James where he was found to have critical two-vessel coronary artery disease involving the mid left circumflex and proximal LAD with aneurysmal LAD in that area as well. Intermediate disease in the distal right coronary artery. Cardiothoracic surgery was consulted and patient will be scheduled to undergo coronary artery bypass grafting surgery on . Patient was seen and examined this morning, denies any chest pain or difficulty in breathing. He has been up ambulating without any difficulty. Objective - Vital Signs Vital signs: Vital Signs Temp 96.8 F L 10/07/16 11:59 Pulse 68 10/07/16 11:59 Resp 20 10/07/16 11:59 BP 118/68 10/07/16 11:59 Pulse Ox 96 10/07/16 11:59 Intake & Output 10/06/16 10/07/16 10/07/16 18:59 06:59 18:59 Intake Total 310 1259.564 311.480 Output Total 250 1750 550 Balance 60 -490.436 -238.520 Weight 88 kg Intake: IV 150 1113.71 Heparin Sodium,Porcine/ 113.71 D5w Pmx 25,000 unit In Dextrose/Water 1 500ml. bag @ 11.3 UNITS/KG/HR 19 .98 mls/hr IV .Q24H [facility] Rx#:[id number] Sodium Chloride 0.9% 1, 100 1000 000 ml @ 100 mls/hr IV . Q10H [facility] Rx#:[id number] Amount of Fluid Infused ( 10 ml) Intake, IV Titration 145.854 311.480 Amount Heparin Sodium,Porcine/ 145.854 311.480 D5w Pmx 25,000 unit In Dextrose/Water 1 500ml. bag @ 11.3 UNITS/KG/HR 19 .98 mls/hr IV .Q24H [facility] Rx#:[id number] Oral 150 Output: Urine 250 1750 550 Other: Voiding Method Urinal # Voids 1 - Exam PHYSICAL EXAMINATION: HEENT: Head is atraumatic, normocephalic. Pupils equal, round. Neck is supple. There is no elevated jugular venous pressure. HEART EXAMINATION: Heart S1, S2 normal. No murmur or gallop heard. CHEST EXAMINATION: Lungs are clear to auscultation and precussion. No chest wall tenderness is noted on palpation or with deep breathing. ABDOMEN: Soft, nontender. Bowel sounds are heard. No organomegaly noted. Right groin soft, no evidence of any hematoma. EXTREMITIES: 2+ peripheral pulses with no evidence of peripheral edema and no calf tenderness noted. NEUROLOGIC patient is awake, alert and oriented -3. . - Labs CBC & Chem 7: 10/07/16 05:56 10/07/16 05:56 Labs: Abnormal Lab Results - Last 24 Hours (Table) 10/06/16 10/06/16 10/06/16 Range/Units 17:22 23:09 23:09 APTT 32.9 H (22.0-30.0) sec Sodium (137-145) mmol/L Glucose (74-99) mg/dL Troponin I 0.179 H* 0.195 H* (0.000-0.034) ng/mL Triglycerides (<150) mg/dL Cholesterol (<200) mg/dL LDL Cholesterol, Calc (0-99) mg/dL HDL Cholesterol (40-60) mg/dL Crossmatch 10/07/16 10/07/16 10/07/16 Range/Units 05:56 05:56 05:56 APTT 76.2 H (22.0-30.0) sec Sodium 136 L (137-145) mmol/L Glucose 109 H (74-99) mg/dL Troponin I (0.000-0.034) ng/mL Triglycerides 157 H (<150) mg/dL Cholesterol 202 H (<200) mg/dL LDL Cholesterol, Calc 132 H (0-99) mg/dL HDL Cholesterol 39 L (40-60) mg/dL Crossmatch See Detail 10/07/16 Range/Units 13:30 APTT 45.9 H (22.0-30.0) sec Sodium (137-145) mmol/L Glucose (74-99) mg/dL Troponin I (0.000-0.034) ng/mL Triglycerides (<150) mg/dL Cholesterol (<200) mg/dL LDL Cholesterol, Calc (0-99) mg/dL HDL Cholesterol (40-60) mg/dL Crossmatch Microbiology - Last 24 Hours (Table) 10/06/16 20:15 Urine Culture - Preliminary Urine,Clean Catch Assessment and Plan (1) S/P cardiac cath Status: Acute (2) 2-vessel coronary artery disease Status: Acute (3) HTN (hypertension) Status: Acute (4) Hyperlipemia Status: Acute (5) Non-STEMI (non-ST elevated myocardial infarction) Status: Acute Plan: From cardiology standpoint, we will continue the patient on his current medications. He will be scheduled to undergo coronary bypass grafting surgery on . We will continue to follow. DNP note has been reviewed, I agree with a documented findings and plan of care. Patient was seen and examined.
--- NOTE | 2016-10-07 16:19 | P.PN ---
Subjective Principal diagnosis: Non-STEMI. Preoperative coronary artery bypass graft surgery. Patient sitting up in bed in no apparent distress. is at bedside. Preoperative teaching initiated and reinforced. All questions answered. Objective - Vital Signs Vital signs: Vital Signs Temp 96.9 F L 10/07/16 15:28 Pulse 96 10/07/16 15:28 Resp 20 10/07/16 15:28 BP 125/67 10/07/16 15:28 Pulse Ox 93 L 10/07/16 15:28 Intake & Output 10/06/16 10/07/16 10/07/16 18:59 06:59 18:59 Intake Total 310 1259.564 715.592 Output Total 250 1750 550 Balance 60 -490.436 165.592 Weight 88 kg Intake: IV 150 1113.71 Heparin Sodium,Porcine/ 113.71 D5w Pmx 25,000 unit In Dextrose/Water 1 500ml. bag @ 11.3 UNITS/KG/HR 19 .98 mls/hr IV .Q24H [facility] Rx#:[id number] Sodium Chloride 0.9% 1, 100 1000 000 ml @ 100 mls/hr IV . Q10H [facility] Rx#:[id number] Amount of Fluid Infused ( 10 ml) Intake, IV Titration 145.854 337.592 Amount Heparin Sodium,Porcine/ 145.854 337.592 D5w Pmx 25,000 unit In Dextrose/Water 1 500ml. bag @ 11.3 UNITS/KG/HR 19 .98 mls/hr IV .Q24H [facility] Rx#:[id number] Oral 150 378 Output: Urine 250 1750 550 Other: Voiding Method Urinal # Voids 1 - Constitutional General appearance: Present: cooperative, no acute distress - Respiratory Details: Lungs sounds diminished bilaterally. Respirations even, nonlabored. Currently on room air. - Cardiovascular Details: S1, S2 present. Regular rate and rhythm, normal sinus rhythm on telemetry. No edema present. Right groin site soft, nontender. - Gastrointestinal Gastrointestinal Comment(s): Abdomen soft, nontender, nondistended. Active bowel sounds 4 quadrants. Tolerating diet. - Genitourinary Genitourinary Comment(s): Voiding clear, yellow urine per urinal. - Musculoskeletal Musculoskeletal: Present: gait normal, strength equal bilaterally - Psychiatric Psychiatric: Present: A&O x's 3, appropriate affect, intact judgment & insight - Allied health notes Allied health notes reviewed: nursing - Labs CBC & Chem 7: 10/07/16 05:56 10/07/16 05:56 Labs: Abnormal Lab Results - Last 24 Hours (Table) 10/06/16 10/06/16 10/06/16 Range/Units 17:22 23:09 23:09 APTT 32.9 H (22.0-30.0) sec Sodium (137-145) mmol/L Glucose (74-99) mg/dL Troponin I 0.179 H* 0.195 H* (0.000-0.034) ng/mL Triglycerides (<150) mg/dL Cholesterol (<200) mg/dL LDL Cholesterol, Calc (0-99) mg/dL HDL Cholesterol (40-60) mg/dL Crossmatch 10/07/16 10/07/16 10/07/16 Range/Units 05:56 05:56 05:56 APTT 76.2 H (22.0-30.0) sec Sodium 136 L (137-145) mmol/L Glucose 109 H (74-99) mg/dL Troponin I (0.000-0.034) ng/mL Triglycerides 157 H (<150) mg/dL Cholesterol 202 H (<200) mg/dL LDL Cholesterol, Calc 132 H (0-99) mg/dL HDL Cholesterol 39 L (40-60) mg/dL Crossmatch See Detail 10/07/16 Range/Units 13:30 APTT 45.9 H (22.0-30.0) sec Sodium (137-145) mmol/L Glucose (74-99) mg/dL Troponin I (0.000-0.034) ng/mL Triglycerides (<150) mg/dL Cholesterol (<200) mg/dL LDL Cholesterol, Calc (0-99) mg/dL HDL Cholesterol (40-60) mg/dL Crossmatch Microbiology - Last 24 Hours (Table) 10/07/16 08:15 Nasal Screen MRSA/MSSA ([facility]) - Preliminary Nasal Swab 10/06/16 20:15 Urine Culture - Preliminary Urine,Clean Catch - Imaging and Cardiology Chest x-ray: report reviewed, image reviewed Echo, carotid Dopplers reviewed. Assessment and Plan (1) History of pulmonary embolism Status: Acute (2) HTN (hypertension) Status: Acute (3) Hyperlipemia Status: Acute (4) Non-STEMI (non-ST elevated myocardial infarction) Status: Acute (5) S/P cardiac cath Status: Acute Plan: 1. Preoperative workup completed and reviewed. 2. Preoperative teaching initiated and reinforced. All questions answered. 3. Continue aspirin, statin, beta hua, heparin drip. 4. Patient is scheduled for urgent off-pump coronary artery bypass grafting on , 10/09/2016. 5. 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 6. Incentive spirometry encouraged. 7. Supportive care. 8. More recommendations as patient progresses. Time with Patient: Greater than 30
[2016-10-07] MEDS: ATORVASTATIN 80 MG TAB PO SCH (20:29)
[2016-10-07 20:47] LABS: Glucose,Whole Blood 115 mg/dL (75-99)
[2016-10-07] MEDS: MUPIROCIN 2% OINT 22 GM TUBE NASAL SCH (23:58)
[2016-10-08] MEDS: NITROGLYCERIN OINT 1 INCH/GM PACKET TOPICAL SCH ×5 (00:34→23:14)
[2016-10-08 05:41] LABS: Glucose,Whole Blood 119 mg/dL (75-99)
[2016-10-08] MEDS: METOPROLOL TARTRATE 12.5 MG TAB PO SCH ×2 (08:19→22:02)
[2016-10-08] MEDS: ASPIRIN 325 MG TAB PO SCH (08:20)
[2016-10-08] MEDS: MUPIROCIN 2% OINT 22 GM TUBE NASAL SCH ×2 (08:20→22:02)
--- NOTE | 2016-10-08 09:30 | XR ---
EXAMINATION TYPE: XR chest 2V DATE OF EXAM: 10/08/2016 7:23 AM COMPARISON: Prior chest x-ray one October 2016 HISTORY: Abnormal chest x-ray TECHNIQUE: Frontal and lateral views of the chest are obtained. FINDINGS: There is no focal air space opacity, pleural effusion, or pneumothorax seen. The cardiac silhouette size is within normal limits. The osseous structures are intact. IMPRESSION: The previously identified nodular density at the left lung base is not seen with certain ty and may represent nipple shadow. Nipple markers are noted.
--- NOTE | 2016-10-08 12:36 | P.PN ---
Subjective Principal diagnosis: Coronary artery disease, patient is scheduled to undergo CABG in 24 hours 71-year-old white male with history of hypertension, remote history of pulmonary embolism following hernia surgery, patient was on anticoagulation therapy for one year. At that time he was taken care of by Dr. Rehman. Since then, the patient did not have any history to suggest any thromboembolic disease. Patient presented with acute onset of chest pain while shopping at the [employer] on Thursday, upon presentation to the ER, patient was found to have positive troponin and EKG changes. Cardiac catheterization showed significant LAD and circumflex disease. Patient was seen by surgery on consultation, and he is scheduled to undergo surgery sometime later this week. Pulmonary-ernandez patient has no history of COPD, he is a nonsmoker, physically active, can even run a mile before this episode of chest pain. No cough no wheezing no shortness of breath. Patient did have remote history of pulmonary embolism about 20 years ago provoked by hernia surgery. Presently the patient is asymptomatic, no pulmonary symptoms, no headaches no blurred vision no dizziness. No nausea no vomiting no abdominal pain no melena no hematemesis is no dysuria frequency or urgency. Chest x-ray questioned a small tiny nodule, I reviewed the chest x-ray, the finding is not significant, I believe this is more of a summation shadow or could be a nipple shadow, but patient this can be addressed with x-rays with nipple markers, and down the line if the nodule is true one can consider CT of the chest, but at this point I don't see the value of a CT of the chest.index of suspicion for malignancy is rather low. On 10/07/2016, patient continues to do well, no cough no wheezing no shortness of breath, I did recommend repeat chest x-ray with nipple markers on the left side , and if necessary, may order a CT of the chest without contrast. However, presence of a tiny nodule should not delay any plans for anticipated surgery for CABG. A shunt has no pulmonary symptoms whatsoever. Labs from today were all reviewed including a normal CBC and normal basic metabolic profile. Heparin is therapeutic with a PTT of 45.9. On 11/04/2016, patient continues to do well, asymptomatic, no cough no wheezing no shortness of breath, reviewed the results of his chest x-ray done today, no worrisome findings to speak of. patient was clearly ready for surgery and I believe is scheduled tomorow. Objective - Vital Signs Vital signs: Vital Signs Temp 97.5 F L 10/08/16 11:37 Pulse 67 10/08/16 11:37 Resp 20 10/08/16 11:37 BP 135/75 10/08/16 11:37 Pulse Ox 95 10/08/16 11:37 Intake & Output 10/07/16 10/08/16 10/08/16 18:59 06:59 18:59 Intake Total 715.592 562.772 180 Output Total 550 250 Balance 165.592 312.772 180 Weight 88 kg Intake: IV 283.92 Heparin Sodium,Porcine/ 283.92 D5w Pmx 25,000 unit In Dextrose/Water 1 500ml. bag @ 11.3 UNITS/KG/HR 19 .98 mls/hr IV .Q24H [facility] Rx#:[id number] Intake, IV Titration 337.592 278.852 Amount Heparin Sodium,Porcine/ 337.592 278.852 D5w Pmx 25,000 unit In Dextrose/Water 1 500ml. bag @ 11.3 UNITS/KG/HR 19 .98 mls/hr IV .Q24H [facility] Rx#:[id number] Oral 378 180 Output: Urine 550 250 Other: Voiding Method Urinal - Exam Physical Exam: Revealed a 71-year-old white male in no distress. HEENT:[Neck is supple.] [No neck masses.] [No thyromegaly.] [No JVD.] Chest: [Clear throughout, no crackles, no rhonchi, no wheezes.] Cardiac Exam: [Normal S1 and S2, no S3 gallop, no murmur.] Abdomen: [Soft, nontender, no megaly, no rebound, no guarding, normal bowel sounds.] Extremities: [No clubbing, no edema, no cyanosis.] Neurological Exam: [No focal neurologic deficit.] - Labs CBC & Chem 7: 10/07/16 05:56 10/07/16 05:56 Labs: Abnormal Lab Results - Last 24 Hours (Table) 10/07/16 10/07/16 10/07/16 Range/Units 05:56 13:30 19:42 APTT 45.9 H 46.5 H (22.0-30.0) sec POC Glucose (mg/dL) (75-99) mg/dL Crossmatch See Detail 10/07/16 10/08/16 10/08/16 Range/Units 20:45 01:54 05:40 APTT 62.1 H (22.0-30.0) sec POC Glucose (mg/dL) 115 H 119 H (75-99) mg/dL Crossmatch Microbiology - Last 24 Hours (Table) 10/06/16 20:15 Urine Culture - Final Urine,Clean Catch 10/07/16 08:15 Nasal Screen MRSA/MSSA ([facility]ALINO) - Preliminary Nasal Swab Assessment and Plan Plan: impression: 1 acute non-ST elevation myocardial infarction, 2.2vessel coronary artery disease with preserved LV function 3 nonspecific left lower lobe pulmonary nodule not seen on chest x-ray today which was done in the department with nipple markers. 4. Remote history of pulmonary embolism provoked by hernia surgery, patient did not require long-term course of anticoagulation therapy. And has been free of any thromboembolic disease for the last 20 years. Recommendation: Patient will be cleared for surgery, considered low operative risk. Time with Patient: Less than 30
--- NOTE | 2016-10-08 14:45 | P.PN ---
Subjective Principal diagnosis: Chest pain This is a pleasant 71-year-old gentleman with past medical history significant for hypertension who presented to the hospital with symptoms of chest discomfort. He was taken to the cardiac catheterization lab yesterday by Dr. James where he was found to have critical two-vessel coronary artery disease involving the mid left circumflex and proximal LAD with aneurysmal LAD in that area as well. Intermediate disease in the distal right coronary artery. Cardiothoracic surgery was consulted and patient will be scheduled to undergo coronary artery bypass grafting surgery on . Patient was seen and examined this morning, denies any chest pain or difficulty in breathing. He has been up ambulating without any difficulty. Objective - Vital Signs Vital signs: Vital Signs Temp 97.5 F L 10/08/16 11:37 Pulse 67 10/08/16 11:37 Resp 20 10/08/16 11:37 BP 135/75 10/08/16 11:37 Pulse Ox 95 10/08/16 11:37 Intake & Output 10/07/16 10/08/16 10/08/16 18:59 06:59 18:59 Intake Total 715.592 562.772 180 Output Total 550 250 Balance 165.592 312.772 180 Weight 88 kg Intake: IV 283.92 Heparin Sodium,Porcine/ 283.92 D5w Pmx 25,000 unit In Dextrose/Water 1 500ml. bag @ 11.3 UNITS/KG/HR 19 .98 mls/hr IV .Q24H [facility] Rx#:[id number] Intake, IV Titration 337.592 278.852 Amount Heparin Sodium,Porcine/ 337.592 278.852 D5w Pmx 25,000 unit In Dextrose/Water 1 500ml. bag @ 11.3 UNITS/KG/HR 19 .98 mls/hr IV .Q24H [facility] Rx#:[id number] Oral 378 180 Output: Urine 550 250 Other: Voiding Method Urinal - Exam PHYSICAL EXAMINATION: HEENT: Head is atraumatic, normocephalic. Pupils equal, round. Neck is supple. There is no elevated jugular venous pressure. HEART EXAMINATION: Heart S1, S2 normal. No murmur or gallop heard. CHEST EXAMINATION: Lungs are clear to auscultation and precussion. No chest wall tenderness is noted on palpation or with deep breathing. ABDOMEN: Soft, nontender. Bowel sounds are heard. No organomegaly noted. Right groin soft, no evidence of any hematoma. EXTREMITIES: 2+ peripheral pulses with no evidence of peripheral edema and no calf tenderness noted. NEUROLOGIC patient is awake, alert and oriented -3. . - Labs CBC & Chem 7: 10/07/16 05:56 10/07/16 05:56 Labs: Abnormal Lab Results - Last 24 Hours (Table) 10/07/16 10/07/16 10/07/16 Range/Units 05:56 19:42 20:45 APTT 46.5 H (22.0-30.0) sec POC Glucose (mg/dL) 115 H (75-99) mg/dL Crossmatch See Detail 10/08/16 10/08/16 Range/Units 01:54 05:40 APTT 62.1 H (22.0-30.0) sec POC Glucose (mg/dL) 119 H (75-99) mg/dL Crossmatch Microbiology - Last 24 Hours (Table) 10/06/16 20:15 Urine Culture - Final Urine,Clean Catch 10/07/16 08:15 Nasal Screen MRSA/MSSA (ROSALINO) - Preliminary Nasal Swab Assessment and Plan (1) S/P cardiac cath Status: Acute (2) 2-vessel coronary artery disease Status: Acute (3) HTN (hypertension) Status: Acute (4) Hyperlipemia Status: Acute (5) Non-STEMI (non-ST elevated myocardial infarction) Status: Acute Plan: From cardiology standpoint, we will continue the patient on his current medications. He will be scheduled to undergo coronary bypass grafting surgery on . We will continue to follow. DNP note has been reviewed, I agree with a documented findings and plan of care. Patient was seen and examined.
[2016-10-08] MEDS: PANTOPRAZOLE 40 MG TABLET PO SCH (16:06)
[2016-10-08] MEDS: NITROGLYCERIN SL TABS 0.4 MG TAB SUBLINGUAL PRN ×2 (21:07→21:13)
[2016-10-08] MEDS ORDERED: ALPRAZolam 0.25 MG TAB PO STA (21:39)
[2016-10-08] MEDS ORDERED: MELATONIN 3 MG TABLET PO SCH (21:45)
[2016-10-08] MEDS: ATORVASTATIN 80 MG TAB PO SCH (22:02)
--- NOTE | 2016-10-08 22:51 | PN ---
HOSPITAL COURSE/SUBJECTIVE DATA: This is a 71-year-old gentleman who came into the hospital with chest discomfort. Patient underwent a cardiac catheterization due to NSTEMI. Patient was noted to have critical two-vessel disease and an aneurysmal LAD. Due to the aneurysm in LAD, patient was referred for cardiothoracic surgery. With the patient being admitted for an NSTEMI, patient was scheduled for a coronary artery bypass graft on this admission. Patient is scheduled to undergo the procedure tomorrow. Denies having any chest pain, headaches, blurry vision, nausea, vomiting, diarrhea at this time. PHYSICAL EXAM: VITALS: Temperature 97.5, heart rate 67, respiratory rate 20, blood pressure 135/75. Saturating 95% on room air. GENERALLY: Patient appears to be alert, oriented x3. HEENT: The pupils are equal and reactive to light and accommodation. HEART: S1, S2 present. No murmur appreciated. LUNGS: Good air entry. No wheezing or rhonchi noted. ABDOMINAL EXAM: Soft, nontender, no organomegaly appreciated. GENITOURINARY: No Chandler in place. EXTREMITIES: Pulses can be palpated distally. Denies any tenderness on gross palpation. SKIN: On a gross skin exam does not appear to have any purpura or any skin rashes that were noted. NEUROLOGICALLY: Grossly cranial nerves 2-12 intact. No motor or sensory deficits noted. Laboratory data include hemoglobin 14.3, hematocrit 42.3, white count 8, platelets of 201. Sodium 136, potassium 4.2, chloride 105, bicarb 24. BUN 17, creatinine 0.80. ASSESSMENT AND PLAN: 1. Aby-TT-zfjtifn-elevation myocardial infarction, status post catheterization; noted to have critical two- vessel disease and left anterior descending coronary artery aneurysm. 2. Hypertension. 3. Dyslipidemia. PLAN: Patient is cleared for surgery tomorrow in the a.m. Patient underwent preoperative testing. Will follow the clinical course. Patient will be admitted to Cardiothoracic Surgery tomorrow during and thereafter for postsurgical management.
[2016-10-09] MEDS ORDERED: CLEVIDIPINE BUTYRATE 25 MG in EMPTY BAG 1 BAG IV PRN (05:00)
[2016-10-09] MEDS ORDERED: PROTAMINE SULFATE 10 MG/ML 25 ML VIAL IV PRN (05:00)
[2016-10-09] MEDS ORDERED: INSULIN REGULAR 100 UNIT in SODIUM CHLORIDE 0.9% 100 ML IV PRN (05:00)
[2016-10-09] MEDS ORDERED: ceFAZolin 2 GM in SODIUM CHLORIDE 0.9% 30 ML IVPB PRN (05:00)
[2016-10-09] MEDS ORDERED: ceFAZolin 1,000 MG in SODIUM CHLORIDE 0.9% IRRIGATIO 1,000 ML IRRIGATION PRN (05:00)
[2016-10-09] MEDS ORDERED: PROTAMINE SULFATE 250 MG in EMPTY BAG 1 BAG IV PRN (05:00)
[2016-10-09] MEDS ORDERED: MAGNESIUM SULFATE SYG 4.06 MEQ/ML SYRINGE IV PRN (05:00)
[2016-10-09] MEDS ORDERED: ALBUMIN HUMAN 25% 50 ML in EMPTY BAG 1 BAG IVPB PRN (05:00)
[2016-10-09] MEDS ORDERED: HEPARIN SODIUM 1,000 UNIT/ML VIAL IV PRN (05:00)
[2016-10-09] MEDS ORDERED: PAPAVERINE 360 MG in SODIUM CHLORIDE 0.9% 90 ML IV PRN (05:00)
[2016-10-09] MEDS ORDERED: PROPOFOL 500 MG in EMPTY BAG 1 BAG IV PRN (05:00)
[2016-10-09] MEDS ORDERED: METOPROLOL TARTRATE 12.5 MG TAB PO ONE (05:00)
[2016-10-09] MEDS ORDERED: ceFAZolin 2,000 MG in SODIUM CHLORIDE 0.9% 30 ML IVPB PRN (05:00)
[2016-10-09] MEDS ORDERED: ALBUMIN HUMAN 5% 500 ML in EMPTY BAG 1 BAG IVPB PRN ×6 (05:00)
[2016-10-09] MEDS ORDERED: NOREPINEPHRIN 4 MG-0.9% NS PMX 4 MG/250 ML ML IV PRN (05:00)
[2016-10-09] MEDS ORDERED: CHLORHEXIDINE GLUCONATE 15 ML CUP MUCOUS MEM PRN (05:00)
[2016-10-09] MEDS ORDERED: HEPARIN SODIUM,PORCINE 5,000 UNIT in SODIUM CHLORIDE 0.9% 500 ML IV PRN (05:00)
[2016-10-09] MEDS ORDERED: PHENYLEPHRINE-0.9% NACL SYG 1 MG/10 ML SYRINGE IV PRN ×4 (05:00)
[2016-10-09] MEDS ORDERED: NITROGLYCERIN-D5W PMX 25 MG/250 ML BTL IV PRN (05:00)
[2016-10-09] MEDS ORDERED: PHENYLEPHRINE 40 MG in SODIUM CHLORIDE 0.9% 250 ML IV PRN (05:00)
[2016-10-09] MEDS ORDERED: CALCIUM CHLORIDE 100 MG/ML 10 ML SYRINGE IVP PRN (05:00)
[2016-10-09] MEDS ORDERED: ASPIRIN 325 MG TAB PO ONE (05:00)
[2016-10-09] MEDS ORDERED: NITROGLYCERIN-D5W PMX 50 MG in DEXTROSE/WATER 1 250ML.BAG IV PRN (05:00)
[2016-10-09] MEDS ORDERED: SODIUM BICARB 8.4% 50 ML SYR (1 MEQ/ML) IV PRN (05:00)
[2016-10-09] MEDS ORDERED: ATORVASTATIN 10 MG TAB PO ONE (05:00)
[2016-10-09] MEDS: NITROGLYCERIN OINT 1 INCH/GM PACKET TOPICAL SCH ×2 (05:56→13:56)
[2016-10-09] MEDS ORDERED: MAGNESIUM SULFATE 4 MEQ/ML 2 ML VIAL ONE (07:55)
[2016-10-09] MEDS ORDERED: SODIUM CHLORIDE 0.9% IRRIG 1,000 ML BTL IRRIGATION ONE (07:55)
[2016-10-09] MEDS ORDERED: HEPARIN SODIUM,PORCINE 10,000 UNIT/ML 1 ML VIAL ONE (07:55)
[2016-10-09] MEDS ORDERED: POTASSIUM CHLORIDE OPEN HEART 20 MEQ/50 ML BAG IVPB ONE (07:55)
[2016-10-09] MEDS ORDERED: SODIUM BICARB 8.4% 50 ML SYR (1 MEQ/ML) ONE (07:55)
[2016-10-09] MEDS ORDERED: VECURONIUM 10 MG VIAL IV ONE (07:55)
[2016-10-09] MEDS ORDERED: fentaNYL (PF) 50 MCG/ML 50 ML VIAL ONE (07:55)
[2016-10-09] MEDS ORDERED: PROPOFOL 10 MG/ML 20 ML VIAL IV ONE (07:55)
[2016-10-09] MEDS ORDERED: HEPARIN SODIUM,PORCINE 5,000 UNIT/ML 1 ML VIAL ONE (07:55)
[2016-10-09] MEDS ORDERED: ALBUMIN HUMAN 5% 500 ML VIAL IVPB ONE (07:55)
[2016-10-09] MEDS ORDERED: PHENYLEPHRINE-0.9% NACL SYG 1 MG/10 ML SYRINGE ONE (07:55)
[2016-10-09] MEDS ORDERED: fentaNYL (PF) 50 MCG/ML 2 ML AMP ONE (07:55)
[2016-10-09] MEDS ORDERED: MIDAZOLAM 2 MG/2 ML VIAL ONE (07:55)
[2016-10-09 08:40] LABS: Glucose,Whole Blood 124 mg/dL (75-99)
[2016-10-09] MEDS ORDERED: SODIUM CHLORIDE 0.9% 500 ML with HEPARIN SODIUM,PORCINE 5,000 UNIT IRRIGATION ONE ×2 (09:05)
[2016-10-09] MEDS ORDERED: PAPAVERINE 360 MG in SODIUM CHLORIDE 0.9% 90 ML IRRIGATION ONE (09:07)
[2016-10-09] MEDS ORDERED: ceFAZolin 1,000 MG in SODIUM CHLORIDE 0.9% 1,000 ML IRRIGATION ONE (09:07)
[2016-10-09 11:21] LABS: Glucose,Whole Blood 147 mg/dL (75-99)
[2016-10-09 11:58] LABS: Glucose,Whole Blood 153 mg/dL (75-99)
[2016-10-09 12:22] LABS: Glucose,Whole Blood 144 mg/dL (75-99)
[2016-10-09 12:52] LABS: Glucose,Whole Blood 146 mg/dL (75-99)
[2016-10-09 13:35] LABS: Glucose,Whole Blood 139 mg/dL (75-99)
[2016-10-09] MEDS: MUPIROCIN 2% OINT 22 GM TUBE NASAL SCH ×2 (13:56→22:18)
[2016-10-09] MEDS: PANTOPRAZOLE 40 MG TABLET PO SCH (13:56)
[2016-10-09] MEDS: HEPARIN SODIUM,PORCINE/D5W PMX 25,000 UNIT in DEXTROSE/WATER 1 500ML.BAG IV SCH (13:57)
[2016-10-09] MEDS ORDERED: MILRINONE-D5W PMX 20 MG in DEXTROSE/WATER 1 100ML.BAG IV SCH (14:03)
[2016-10-09] MEDS ORDERED: PROPOFOL 500 MG in EMPTY BAG 1 BAG IV SCH (14:03)
[2016-10-09] MEDS ORDERED: Magnesium Replacement Protocol 1 EACH MISC MISCELLANE PRN (14:03)
[2016-10-09] MEDS ORDERED: ONDANSETRON 4 MG/2 ML VIAL IVP PRN (14:03)
[2016-10-09] MEDS ORDERED: METOCLOPRAMIDE 5 MG/ML 2 ML VIAL IVP PRN (14:03)
[2016-10-09] MEDS ORDERED: Phosphorus Replacement Protoco 1 EACH MISC MISCELLANE PRN ×2 (14:03→21:42)
[2016-10-09] MEDS ORDERED: Potassium Replacement Protocol 1 EACH MISC MISCELLANE PRN ×2 (14:03→21:44)
[2016-10-09] MEDS ORDERED: BENZOCAINE/MENTHOL LOZENG 1 EACH LOZENGE MUCOUS MEM PRN (14:03)
[2016-10-09] MEDS ORDERED: NITROGLYCERIN-D5W PMX 50 MG in DEXTROSE/WATER 1 250ML.BAG IV SCH (14:03)
[2016-10-09] MEDS ORDERED: ASPIRIN 300 MG SUPP RECTAL ONE (14:03)
[2016-10-09] MEDS ORDERED: CALCIUM GLUCONATE 2,000 MG in SODIUM CHLORIDE 0.9% 100 ML IVPB PRN (14:03)
--- NOTE | 2016-10-09 14:31 | XR ---
EXAMINATION TYPE: XR chest 1V DATE OF EXAM: 10/09/2016 2:26 PM COMPARISON: 10/08/2016 HISTORY: Looking for possible foreign body TECHNIQUE: Single frontal view of the chest is obtained. FINDINGS: ET tube, chest tubes, mediastinal drain, and Leroy-Lia catheter seen with postsurgical brandan nge. Diffuse interstitial pattern with bilateral infiltrate and small effusion. Surgical clips noted. No metallic object identified overlying the thorax. ET tube approximately 3.7 c m above leann. IMPRESSION: 1. Postoperative changes. Correlate for bilateral pleural effusion and consolidation. Mild venous con gestion. 2. No metallic foreign body overlying the thorax.
[2016-10-09 15:02] LABS: Basophils % (A) 0 %; CH 31.2; CHCM 33.6; Eosinophils % (A) 0 %; HCT 31.8 % (39.0-53.0); HDW 2.33; Luc # (Auto) 0.07; Luc % (Auto) 1; Lymphocytes # (A) 1.2 k/uL (1.0-4.8); Lymphocytes % (A) 9 %; MCH 30.4 pg (25.0-35.0); MCHC 32.5 g/dL (31.0-37.0); MCV 93.4 fL (80.0-100.0); Mean Platelet Volume 7.3; Monocytes # (A) 0.6 k/uL (0-1.0); Monocytes % (A) 5 %; Neutrophils # (A) 11.1 k/uL (1.3-7.7); Neutrophils % (A) 85 %; RBC 3.41 m/uL (4.30-5.90); RDW 12.6 % (11.5-15.5); WBC (Perox) 14.13
[2016-10-09 15:03] LABS: Glucose,Whole Blood 143 mg/dL (75-99)
[2016-10-09 15:07] LABS: Ionized Calcium 4.9 mg/dL (4.5-5.3)
[2016-10-09 15:10] LABS: HGB 10.4 gm/dL (13.0-17.5)
[2016-10-09 15:17] LABS: INR 1.2 (<1.1); Prothrombin Time 11.8 sec (9.0-12.0)
[2016-10-09 15:18] LABS: ALT 41 U/L (21-72); AST 73 U/L (17-59); Alkaline Phosphatase 32 U/L (38-126); Anion Gap 11 mmol/L; Blood Urea Nitrogen 14 mg/dL (9-20); Carbon Dioxide 23 mmol/L (22-30); Chloride 108 mmol/L (98-107); Glucose 146 mg/dL (74-99); Magnesium 2.1 mg/dL (1.6-2.3); Non-African American GFR(MDRD) >60 (>60 ml/min/1.73 sqM); Potassium 4.1 mmol/L (3.5-5.1); Sodium 142 mmol/L (137-145); Total Bilirubin 1.2 mg/dL (0.2-1.3); Total Protein 6.5 g/dL (6.3-8.2)
--- NOTE | 2016-10-09 15:19 | XR ---
EXAMINATION TYPE: XR chest 1V portable DATE OF EXAM: 10/09/2016 3:03 PM COMPARISON: Prior chest x-ray same date HISTORY: Postop cardiac surgery TECHNIQUE: Single frontal view of the chest is obtained. FINDINGS: Endotracheal tube, right jugular central venous catheter, bilateral chest tubes, mediastin al drains remain in place. There is no evident pneumothorax. Difficult to exclude small effusion. Pat ient is post median sternotomy. The heart is enlarged. Lung volumes are low. Interstitium is increase d, perihilar airspace disease suspected. Retrocardiac density obscures the left hemidiaphragm. IMPRESSION: Correlate for congestive heart failure, volume overload, possible left lower lobe atelec tasis and associated effusion.
[2016-10-09] MEDS: MORPHINE SULFATE 2 MG/ML SYRINGE IVP PRN ×4 (15:41→20:28)
--- NOTE | 2016-10-09 15:43 | P.PN ---
Subjective Principal diagnosis: Coronary artery disease. 71-year-old white male with history of hypertension, remote history of pulmonary embolism following hernia surgery, patient was on anticoagulation therapy for one year. At that time he was taken care of by Dr. Rehman. Since then, the patient did not have any history to suggest any thromboembolic disease. Patient presented with acute onset of chest pain while shopping at the [employer] on Thursday, upon presentation to the ER, patient was found to have positive troponin and EKG changes. Cardiac catheterization showed significant LAD and circumflex disease. Patient was seen by surgery on consultation, and he is scheduled to undergo surgery sometime later this week. Pulmonary-ernandez patient has no history of COPD, he is a nonsmoker, physically active, can even run a mile before this episode of chest pain. No cough no wheezing no shortness of breath. Patient did have remote history of pulmonary embolism about 20 years ago provoked by hernia surgery. Presently the patient is asymptomatic, no pulmonary symptoms, no headaches no blurred vision no dizziness. No nausea no vomiting no abdominal pain no melena no hematemesis is no dysuria frequency or urgency. Chest x-ray questioned a small tiny nodule, I reviewed the chest x-ray, the finding is not significant, I believe this is more of a summation shadow or could be a nipple shadow, but patient this can be addressed with x-rays with nipple markers, and down the line if the nodule is true one can consider CT of the chest, but at this point I don't see the value of a CT of the chest.index of suspicion for malignancy is rather low. On 10/07/2016, patient continues to do well, no cough no wheezing no shortness of breath, I did recommend repeat chest x-ray with nipple markers on the left side , and if necessary, may order a CT of the chest without contrast. However, presence of a tiny nodule should not delay any plans for anticipated surgery for CABG. A shunt has no pulmonary symptoms whatsoever. Labs from today were all reviewed including a normal CBC and normal basic metabolic profile. Heparin is therapeutic with a PTT of 45.9. On 10/08/2016, patient continues to do well, asymptomatic, no cough no wheezing no shortness of breath, reviewed the results of his chest x-ray done today, no worrisome findings to speak of. patient was clearly ready for surgery and I believe is scheduled tomorow. Patient is seen again today 10/09/2016 in follow-up. He is status post coronary artery bypass grafting utilizing the WATT to the LAD and sequential KERA off the WATT to the diagonal and OM 1. He is seen immediately upon return in the intensive care unit. He is currently on the ventilator with SIMV of 12 tidal volume 500 FiO2 100% and a PEEP of 5. ABGs are pending. There are [address] to the right, left and mediastinum. His current drips include insulin at 1.5 units per hour, nitroglycerin at 5 mg/m, milrinone at 0.25 mcg/kg/m, propofol at 45 mcg/m. Cleviprex at 1 mg per hour. He has a lactated Ringer's at maintenance. White count 13.0, hemoglobin 10.4, creatinine 0.70. Pulmonary artery pressure 49/28, CVP 18. He is maintaining good O2 saturations in the high 90s to 100%. Objective - Vital Signs Vital signs: Vital Signs Temp 96.8 F L 10/09/16 06:12 Pulse 115 H 10/09/16 14:53 Resp 23 10/09/16 14:53 BP 123/77 10/09/16 14:03 Pulse Ox 99 10/09/16 14:53 Intake & Output 10/08/16 10/09/16 10/09/16 18:59 06:59 18:59 Intake Total 1004 640 86.2 Output Total 1600 1355 Balance -596 640 -1268.8 Weight 87.9 kg Intake: IV 324 40 3 Heparin Sodium,Porcine/ 324 40 D5w Pmx 25,000 unit In Dextrose/Water 1 500ml. bag @ 11.3 UNITS/KG/HR 19 .98 mls/hr IV .Q24H [facility] Rx#:[id number] Intake, IV Titration 240 83.2 Amount Clevidipine Butyrate 25 4 mg In Empty Bag 1 bag @ 1 MG/HR 2 mls/hr IV .Q24H [facility] Rx#:[id number] IV Fluid Continuation 1, 240 000 ml As IV .STK-MED ONE Rx#:[id number] Lactated Ringers 1,000 ml 50 @ 50 mls/hr IV .Q20H [facility] Rx#:[id number] Milrinone-D5w Pmx 20 mg 6.6 In Dextrose/Water 1 100ml .bag @ Per Protocol IV . Q0M [facility] Rx#:[id number] Nitroglycerin-D5w Pmx 50 1.5 mg In Dextrose/Water 1 250ml.bag @ 5 MCG/MIN 1.5 mls/hr IV .Q24H [facility] Rx#: [id number] Propofol 500 mg In Empty 21.1 Bag 1 bag @ Titrate IV . Q0M [facility] Rx#:[id number] Oral 440 600 Output: Chest Tube Drainage 55 Chest Tube Left Anterior 32 Chest Chest Tube Right Anterior 15 Chest Mediastinal 8 Urine 1600 700 Estimated Blood Loss 600 Other: # Voids 2 1 ABP, PAP, CO, CI - Last Documented Arterial Blood Pressure 154/68 Pulmonary Artery Pressure 52/29 Cardiac Output 11.1 Cardiac Index 5.5 - Exam GENERAL EXAM: Intubated, sedated. HEAD: Normocephalic. EYES: Sluggish reaction of pupils, equal size. NOSE: Clear with pink turbinates. THROAT: Oral endotracheal and gastric tubes are secured in place. No erythema or exudates. NECK: No masses, no JVD. [place] Lia catheter in place. CHEST: Dressing dry and intact. Pacer wires in place. LUNGS: Equal air entry with gauze in the posterior bases. Few scattered rhonchi.. CVS: S1 and S2 normal with no audible murmurs, regular rhythm and a positive rub. ABDOMEN: Soft. SPINE: No scoliosis or deformity SKIN: No rashes Extremities: Sequential compression devices are in place. Peripheral pulses are intact. - Labs CBC & Chem 7: 10/09/16 14:46 10/07/16 05:56 Labs: Abnormal Lab Results - Last 24 Hours (Table) 10/08/16 10/09/16 10/09/16 Range/Units 16:57 08:36 11:18 WBC (3.8-10.6) k/uL RBC (4.30-5.90) m/uL Hgb (13.0-17.5) gm/dL Hct (39.0-53.0) % Neutrophils # (1.3-7.7) k/uL POC Glucose (mg/dL) 124 H 147 H (75-99) mg/dL Crossmatch See Detail 05/04/17 05/04/17 05/04/17 Range/Units 11:55 12:17 12:48 WBC (3.8-10.6) k/uL RBC (4.30-5.90) m/uL Hgb (13.0-17.5) gm/dL Hct (39.0-53.0) % Neutrophils # (1.3-7.7) k/uL POC Glucose (mg/dL) 153 H 144 H 146 H (75-99) mg/dL Crossmatch 10/09/16 10/09/16 10/09/16 Range/Units 13:32 14:44 14:46 WBC 13.0 H (3.8-10.6) k/uL RBC 3.41 L (4.30-5.90) m/uL Hgb 10.4 L D (13.0-17.5) gm/dL Hct 31.8 L (39.0-53.0) % Neutrophils # 11.1 H (1.3-7.7) k/uL POC Glucose (mg/dL) 139 H 143 H (75-99) mg/dL Crossmatch Microbiology - Last 24 Hours (Table) 10/07/16 08:15 Nasal Screen MRSA/MSSA ([facility]ALINO) - Final Nasal Swab Staphylococcus aureus,Not MRSA Assessment and Plan Plan: Impression: #1 Non-ST elevation myocardial infarction. #2 Coronary artery disease status post coronary artery bypass grafting utilizing a WATT to the LAD, WATT to the KERA to the diagonal and OM 1. Operative day 0 #3 Ventilator dependence as an expected outcome secondary to thoracotomy #4 Hypertension, history of. #5 Remote history of pulmonary embolism following hernia surgery 20 years ago. Plan: The patient was seen and evaluated by Dr. Lizama. His chest x-ray is reviewed. ABGs are pending. We'll make ventilator adjustments accordingly. We'll continue with the rapid extubation protocol. Continue to monitor his labs closely. We'll continue with bronchodilators. He remains on cefazolin. He remains on heparin for DVT prophylaxis. We will continue to follow and make further recommendations based on his clinical status.
[2016-10-09 15:47] LABS: Glucose,Whole Blood 172 mg/dL (75-99)
[2016-10-09] MEDS: CLEVIDIPINE BUTYRATE 25 MG in EMPTY BAG 1 BAG IV SCH (15:48)
[2016-10-09] MEDS: LACTATED RINGERS 1,000 ML IV SCH (15:49)
[2016-10-09] MEDS: ceFAZolin 2 GM in SODIUM CHLORIDE 0.9% 100 ML IVPB SCH ×2 (15:51→23:46)
[2016-10-09] MEDS ORDERED: CISATRACURIUM 2 MG/ML 5 ML VIAL IV ONE ×2 (15:54→16:00)
[2016-10-09 16:53] LABS: ABG HCO3 22 mmol/L (21-25); ABG PCO2 55 mmHg (35-45); ABG PH 7.22 (7.35-7.45); ABG PO2 76 mmHg (83-108)
[2016-10-09 16:56] LABS: Glucose,Whole Blood 158 mg/dL (75-99)
[2016-10-09 17:04] LABS: ABG PCO2 50 mmHg (35-45); ABG PH 7.27 (7.35-7.45); ABG PO2 105 mmHg (83-108)
[2016-10-09 17:05] LABS: ABG HCO3 22 mmol/L (21-25)
[2016-10-09] MEDS: IPRATROPIUM-ALBUTEROL 3 ML NEB INHALATION SCH ×2 (17:20→19:33)
[2016-10-09] MEDS ORDERED: MORPHINE SULFATE 4 MG/ML SYRINGE IVP STA (17:48)
[2016-10-09] MEDS ORDERED: LORazepam 2 MG/ML SYRINGE IV STA (17:48)
[2016-10-09] MEDS ORDERED: DEXMEDETOMIDINE 400 MCG in SODIUM CHLORIDE 0.9% 100 ML IV SCH (18:00)
[2016-10-09 18:01] LABS: Glucose,Whole Blood 162 mg/dL (75-99)
[2016-10-09] MEDS: ACETAMINOPHEN IV (For NPO) 1,000 MG in EMPTY BAG 1 BAG IVPB SCH ×2 (18:27→23:46)
[2016-10-09 18:28] LABS: Basophils % (A) 0 %; CHCM 34.1; Eosinophils % (A) 0 %; HCT 30.5 % (39.0-53.0); HDW 2.38; HGB 10.1 gm/dL (13.0-17.5); Luc # (Auto) 0.04; Luc % (Auto) 0; Lymphocytes # (A) 0.5 k/uL (1.0-4.8); Lymphocytes % (A) 4 %; MCH 30.4 pg (25.0-35.0); MCHC 33.2 g/dL (31.0-37.0); MCV 91.5 fL (80.0-100.0); Mean Platelet Volume 8.6; Monocytes # (A) 0.5 k/uL (0-1.0); Monocytes % (A) 5 %; Neutrophils # (A) 9.6 k/uL (1.3-7.7); Neutrophils % (A) 90 %; RBC 3.34 m/uL (4.30-5.90); RDW 12.7 % (11.5-15.5); WBC 10.7 k/uL (3.8-10.6); WBC (Perox) 10.92
[2016-10-09 19:04] LABS: Glucose,Whole Blood 146 mg/dL (75-99)
[2016-10-09 19:59] LABS: Glucose,Whole Blood 122 mg/dL (75-99)
[2016-10-09 20:53] LABS: Glucose,Whole Blood 119 mg/dL (75-99)
[2016-10-09 21:15] LABS: Anion Gap 7 mmol/L; Blood Urea Nitrogen 15 mg/dL (9-20); Calcium 8.3 mg/dL (8.4-10.2); Carbon Dioxide 24 mmol/L (22-30); Chloride 109 mmol/L (98-107); Glucose 112 mg/dL (74-99); Magnesium 2.2 mg/dL (1.6-2.3); Non-African American GFR(MDRD) >60 (>60 ml/min/1.73 sqM); Phosphorous 1.6 mg/dL (2.5-4.5); Potassium 3.9 mmol/L (3.5-5.1); Sodium 140 mmol/L (137-145)
[2016-10-09 22:04] LABS: Basophils % (A) 0 %; CH 31.8; CHCM 35.7; Eosinophils % (A) 0 %; HCT 29.1 % (39.0-53.0); HDW 2.42; HGB 10.3 gm/dL (13.0-17.5); Luc # (Auto) 0.07; Luc % (Auto) 1; Lymphocytes # (A) 0.7 k/uL (1.0-4.8); Lymphocytes % (A) 9 %; MCH 31.6 pg (25.0-35.0); MCHC 35.3 g/dL (31.0-37.0); MCV 89.3 fL (80.0-100.0); Mean Platelet Volume 8.3; Monocytes # (A) 0.6 k/uL (0-1.0); Monocytes % (A) 7 %; Neutrophils # (A) 6.8 k/uL (1.3-7.7); Neutrophils % (A) 84 %; RBC 3.26 m/uL (4.30-5.90); RDW 12.6 % (11.5-15.5); WBC 8.2 k/uL (3.8-10.6); WBC (Perox) 8.03
[2016-10-09 22:04] LABS: Glucose,Whole Blood 109 mg/dL (75-99)
[2016-10-09] MEDS ORDERED: POTASSIUM CHLORIDE ORAL LIQUID 40 MEQ/30 ML CUP NG-TUBE SCH (22:15)
[2016-10-09] MEDS: HEPARIN SODIUM,PORCINE 5,000 UNIT/ML 1 ML VIAL SQ SCH (22:18)
[2016-10-09] MEDS: SODIUM PHOSPHATE 10 MMOL in SODIUM CHLORIDE 0.9% 100 ML IVPB SCH ×2 (22:19→23:47)
[2016-10-09 22:55] LABS: Glucose,Whole Blood 127 mg/dL (75-99)
--- NOTE | 2016-10-09 23:18 | OP ---
DATE OF SERVICE: 10/09/2016 SURGEON: Ariel Ascencio MD [employer] AND SHOE REPAIRMAN: 1. MUSTAPHA Gilmore 2. Jose FLETCHER PREOPERATIVE DIAGNOSES: 1. Unstable angina. 2. Double-vessel coronary artery disease. 3. History of previous pulmonary embolism with evidence of thrombosed superficial greater saphenous veins bilaterally, chronic. 4. Hypertension. 5. Hyperlipidemia. 6. Preserved left ventricular function. POSTOPERATIVE DIAGNOSES: 1. Unstable angina. 2. Double-vessel coronary artery disease. 3. History of previous pulmonary embolism with evidence of thrombosed superficial greater saphenous veins bilaterally, chronic. 4. Hypertension. 5. Hyperlipidemia. 6. Preserved left ventricular function. OPERATION: 1. Total arterial non-aortic arch triple off-pump coronary artery bypass grafting using the skeletonized in situ left internal mammary artery to the left anterior descending artery, the skeletonized right internal mammary artery as a free graft off the left internal mammary artery to the first diagonal artery in a [id number] fashion, then to the first obtuse marginal artery in an end-to-side fashion. 2. Transesophageal echocardiogram and epiaortic scanning. 3. Intraoperative graft flow measuring using the Fi.tt system. ANESTHESIA: ESTIMATED BLOOD LOSS: SPECIMENS REMOVED: COMPLICATIONS: INDICATION FOR SURGERY: Patient is a 71-year-old gentleman who was worked up as an outpatient with cardiac catheterization, as he sustained 2 typical anginal episodes and was found to have severe proximal LAD disease with some post-stenotic dilatation and severe disease of the circumflex system. The right coronary artery had mild non-occlusive disease. Patient has a history of pulmonary embolism, and the ultrasound of the greater saphenous vein bilaterally showed a non-compressible vein with evidence of chronic thrombus on both sides. For that reason we will be using a total arterial strategy. Risks, benefits and alternatives were discussed with him. His modified Hi's test is positive on the left side, so we will be taking the right radial artery if need be. DESCRIPTION OF PROCEDURE: Patient had an internal jugular Afton-Lia catheter and a left radial arterial line inserted. His PA pressure was 60/25 and the cardiac index was 2.l/min/m2. Subsequently general endotracheal anesthesia was induced uneventfully. Chandler catheter was inserted. The chest, abdomen and both lower extremities as well as the right upper extremity were prepped and draped using ChloraPrep. Ioban was used to cover the skin. Patient received 2 grams of cefazolin intravenously. Transesophageal echocardiogram showed evidence of mild to moderate mitral valve regurgitation that was central with no prolapse. The left ventricular function appeared to be overall preserved. Midline sternotomy was performed and the bone was nicely dense. No bone wax was used. The left hemisternum was elevated, then the left internal mammary artery was initially harvested in a totally skeletonized fashion. The left pleura was intentionally opened in this process and was drained with a 28 Italian chest tube. Subsequently the right hemisternum was elevated and the right internal mammary artery was harvested in a totally skeletonized fashion. The right pleura was intentionally opened in this process and was drained with another 28 Italian chest tube. The everyArtt system along with the Xpose device was used to perform the surgery on a beating heart. Mediastinal fat was transected between 2 ties and epiaortic scanning revealed normal ascending aorta. Pericardium was opened in an inverted T-fashion and pericardial cradle was created. Findings included a slightly dilated heart with a short soft aorta. We started a drip of Primacor after a half load to help decompress the heart and offload it. Looking at the strategy, the right internal mammary artery which was quite lateral at the takeoff would not reach the left anterior descending artery. For that reason and after administration of 5000 units of heparin, the mammary arteries on both sides were doubly clipped distally and transected and they both had excellent flow in them. The right internal mammary artery was also clipped proximally with 2 large clips and transected for a free graft. It was around 2 mm in diameter. The left internal mammary artery was left in situ. The first part of the surgery after systemic heparinization to an ACT above 250 seconds was to anastomose the right internal mammary artery to the left internal mammary artery at the level of the left pleural pericardial reflection for inflow. This was performed using Prolene 7-0 in a continuous fashion. This anastomosis was hemostatic and there was excellent pulsatile flow from both arterial and at the end of the procedure. The first distal anastomosis was between the left internal mammary artery and the mid aspect of the left anterior descending artery, which was opened, accepted a 1.5 mm shunt, was thin-walled, using Prolene 7-0 in continuous fashion. The shunt was removed before completing the anastomosis, which was well tolerated. Flow measurement revealed a flow of 39 mL per minute, pulsatility index of 2.7 and diastolic filling of 73%, showing an excellent graft. The second distal anastomosis after exposing the lateral wall with an Xpose device and with reasonable stability with PA pressure that improved now from the mid 50s to the mid 40s was between the right internal mammary artery that took inflow from the left internal mammary artery and anastomosed in a ikkg-bs-gbmo fashion to the first diagonal artery, which was thin-walled, opened, accepted 1.5 mm shunt using Prolene 7-0 in continuous fashion. Flow measurement of this part of the right internal mammary artery revealed a flow of 54 mL per minute, pulsatility index of 1.3, diastolic filling of 71%, showing an excellent graft. The third and last distal anastomosis was between the end of the right internal mammary artery that was given a nice sigmoid curve and the first obtuse marginal artery, which was opened, was thin-walled, accepted a 1.5 mm shunt using Prolene 7-0 in continuous fashion. Measurement of flow in this part of the right internal mammary artery showed a flow of 29 mL per minute, pulsatility index of 1, diastolic filling of 58%, showing an excellent graft. Satisfied with all the anastomoses, test dose and only half dose protamine was given. One 36 Italian chest tube was placed substernally. Pericardial fat was approximated over the heart and the aorta. After ensuring adequate hemostasis and hemodynamics and after correct sponge, instrument and needle count, and with PA pressures that were 39/18 on 0.2 mcg/kg per minute of Primacor and a cardiac index of 3, we closed the sternum using 5 lqwrwc-yh-gbypy [place] cables after interposing Fibrillar between the sternal edges. Thorough irrigation with cefazolin followed. The rest of the closure proceeded in layers. Skin glue was applied. Patient did not receive any blood bank product but received 300 mL of Cell Saver blood. He was transferred to the ICU with normal EKG, a HEATHER showing mild mitral valve regurgitation, excellent left ventricular function with excellent parameters. THERESA
[2016-10-09 23:26] LABS: ABG HCO3 22 mmol/L (21-25); ABG PCO2 41 mmHg (35-45); ABG PH 7.36 (7.35-7.45); ABG PO2 73 mmHg (83-108)
[2016-10-09 23:27] LABS: ABG Base Excess -2.6 mmol/L
[2016-10-10 00:04] LABS: Glucose,Whole Blood 115 mg/dL (75-99)
[2016-10-10 00:57] LABS: Glucose,Whole Blood 113 mg/dL (75-99)
[2016-10-10 02:01] LABS: Glucose,Whole Blood 132 mg/dL (75-99)
[2016-10-10] MEDS: ALBUMIN HUMAN 5% 250 ML in EMPTY BAG 1 BAG IVPB PRN ×2 (02:02→08:28)
[2016-10-10 04:39] LABS: Glucose,Whole Blood 119 mg/dL (75-99)
[2016-10-10 05:04] LABS: Basophils % (A) 0 %; CH 31.2; CHCM 33.9; Eosinophils % (A) 0 %; HCT 30.3 % (39.0-53.0); HDW 2.33; HGB 9.9 gm/dL (13.0-17.5); Luc % (Auto) 1; Lymphocytes # (A) 0.9 k/uL (1.0-4.8); Lymphocytes % (A) 12 %; MCH 30.3 pg (25.0-35.0); MCHC 32.7 g/dL (31.0-37.0); MCV 92.4 fL (80.0-100.0); Mean Platelet Volume 7.6; Monocytes # (A) 0.5 k/uL (0-1.0); Monocytes % (A) 6 %; Neutrophils # (A) 6.4 k/uL (1.3-7.7); Neutrophils % (A) 81 %; RBC 3.28 m/uL (4.30-5.90); RDW 12.8 % (11.5-15.5); WBC 7.8 k/uL (3.8-10.6); WBC (Perox) 8.31
[2016-10-10 05:09] LABS: Ionized Calcium 4.9 mg/dL (4.5-5.3)
[2016-10-10 05:21] LABS: ALT 37 U/L (21-72); AST 111 U/L (17-59); Alkaline Phosphatase 30 U/L (38-126); Anion Gap 9 mmol/L; Blood Urea Nitrogen 15 mg/dL (9-20); Calcium 8.3 mg/dL (8.4-10.2); Carbon Dioxide 23 mmol/L (22-30); Chloride 111 mmol/L (98-107); Glucose 114 mg/dL (74-99); Magnesium 2.2 mg/dL (1.6-2.3); Non-African American GFR(MDRD) >60 (>60 ml/min/1.73 sqM); Potassium 4.2 mmol/L (3.5-5.1); Sodium 143 mmol/L (137-145); Total Bilirubin 1.1 mg/dL (0.2-1.3); Total Protein 5.8 g/dL (6.3-8.2)
[2016-10-10 05:28] LABS: Glucose,Whole Blood 116 mg/dL (75-99)
[2016-10-10 06:25] LABS: Glucose,Whole Blood 129 mg/dL (75-99)
[2016-10-10] MEDS: IPRATROPIUM-ALBUTEROL 3 ML NEB INHALATION SCH ×4 (07:36→19:32)
--- NOTE | 2016-10-10 07:39 | XR ---
EXAMINATION TYPE: XR chest 1V portable DATE OF EXAM: 10/10/2016 6:43 AM COMPARISON: Prior chest x-ray four October 2016 HISTORY: Postop cardiac surgery TECHNIQUE: Single frontal view of the chest is obtained. FINDINGS: There is been interval removal of the endotracheal tube. Left-sided chest tube, right jugu lar central venous catheter, median sternal drain, overlying cardiac leads, right chest tube remain i n place. There is no evident pneumothorax. Interstitium is increased. Retrocardiac density persists. IMPRESSION: There may be some improvement in volume status accounting for differences in technique. Persistent basilar atelectasis. Interval extubation. Additional follow-up recommended.
[2016-10-10] MEDS ORDERED: MILRINONE-D5W PMX 20 MG in DEXTROSE/WATER 1 100ML.BAG IV SCH (08:00)
[2016-10-10] MEDS: ACETAMINOPHEN IV (For NPO) 1,000 MG in EMPTY BAG 1 BAG IVPB SCH ×3 (08:11→18:20)
[2016-10-10] MEDS: KETOROLAC 30 MG/ML 1 ML VIAL IVP SCH ×4 (08:18→23:38)
[2016-10-10 08:43] LABS: Glucose,Whole Blood 105 mg/dL (75-99)
[2016-10-10] MEDS: ceFAZolin 2 GM in SODIUM CHLORIDE 0.9% 100 ML IVPB SCH (08:47)
[2016-10-10] MEDS: HEPARIN SODIUM,PORCINE 5,000 UNIT/ML 1 ML VIAL SQ SCH ×3 (08:47→23:38)
[2016-10-10] MEDS: ATORVASTATIN 40 MG TAB PO SCH (08:49)
[2016-10-10] MEDS: MUPIROCIN 2% OINT 22 GM TUBE NASAL SCH ×2 (08:50→20:36)
[2016-10-10] MEDS: CLOPIDOGREL 75 MG TAB PO SCH (08:50)
[2016-10-10] MEDS: ASPIRIN 325 MG TAB PO SCH (08:50)
[2016-10-10] MEDS ORDERED: PANTOPRAZOLE 40 MG/10 ML VIAL IVP SCH (09:00)
[2016-10-10 10:13] LABS: Glucose,Whole Blood 132 mg/dL (75-99)
[2016-10-10] MEDS: METOPROLOL TARTRATE 12.5 MG TAB PO SCH ×2 (10:20→20:46)
[2016-10-10 10:55] LABS: INR 1.2 (<1.1); Prothrombin Time 12.1 sec (9.0-12.0)
--- NOTE | 2016-10-10 11:02 | P.PN ---
Progress Note - Text This is a pleasant 71-year-old male patient with a past medical history significant for hypertension presented to the emergency room complaining of chest discomfort. He was in his usual state of health where he was doing some shopping at [employer] on Thursday and felt a squeezing sensation in the chest radiated to the neck and the jaw and was associated with sweating. He called his primary care physician today and the patient was referred to the emergency room. The EKG showed sinus rhythm with nonspecific changes in the inferior leads. The blood work came in to be abnormal showing abnormal troponin. The patient underwent a heart catheterization which showed severe two-vessel CAD involving the LAD and the diagonal. He underwent CABG 2 with WATT to LAD and KERA to diagonal. He has been maintaining normal sinus mechanism. He is on dual antiplatelet therapy along with a statin
[2016-10-10 11:33] LABS: Glucose,Whole Blood 137 mg/dL (75-99)
--- NOTE | 2016-10-10 11:46 | P.PN ---
Subjective Principal diagnosis: Non-STEMI. Double vessel coronary artery disease. History of previous pulmonary embolism with evidence of thrombosed superficial greater saphenous veins bilaterally, chronic. Hypertension. Hyperlipidemia. Preserved left ventricular function. POD #1 total arterial non-aortic arch triple off-pump coronary artery bypass grafting using the skeletonized in situ left internal mammary artery to the left anterior descending artery, skeletonized right internal mammary artery as a free graft off the left internal mammary artery to the first diagonal artery in a wuzw-vw-yeqh fashion, then to the first obtuse marginal artery in an end to side fashion. Intraoperative transesophageal echocardiogram and epi-aortic scanning. Intraoperative graft flow measurement using the CleveFoundationstim system. Patient was extubated at midnight. Currently sitting up in a recliner in no apparent distress. Needs better pain control otherwise has no concerns at this time. Objective - Vital Signs Vital signs: Vital Signs Temp 99.5 F 10/10/16 11:00 Pulse 87 10/10/16 11:09 Resp 20 10/10/16 11:00 BP 110/53 10/10/16 11:00 Pulse Ox 99 10/10/16 11:00 Intake & Output 10/09/16 10/10/16 10/10/16 18:59 06:59 18:59 Intake Total 581.512 5609.383 751.875 Output Total 1975 1311 363 Balance -1443.683 410.383 388.875 Weight 93.2 kg Intake: IV 3 160 20 Cardiac Output 160 20 Intake, IV Titration 911.077 8561.383 731.875 Amount ACETAMINOPHEN IV (For NPO 200 100 ) 1,000 mg In Empty Bag 1 bag @ 400 mls/hr IVPB Q6HR [facility] Rx#:[id number] Albumin Human 5% 250 ml 250 250 In Empty Bag 1 bag @ 250 mls/hr IVPB Q1HR PRN Rx#: [id number] Clevidipine Butyrate 25 12.933 mg In Empty Bag 1 bag @ 1 MG/HR 2 mls/hr IV .Q24H [facility]ACE[facility] Rx#:[id number] Dexmedetomidine 400 mcg 51.666 In Sodium Chloride 0.9% 100 ml @ Titrate IV .Q0M [facility] Rx#:[id number] Insulin Regular 100 unit 3.784 15.017 In Sodium Chloride 0.9% 100 ml @ Titrate IV .Q0M PRN Rx#:[id number] Lactated Ringers 1,000 ml 200 600 250 @ 20 mls/hr IV .Q24H [facility] Rx#:[id number] Milrinone-D5w Pmx 20 mg 33.0 76.7 6.1 In Dextrose/Water 1 100ml .bag @ Per Protocol IV . Q0M [facility] Rx#:[id number] Nitroglycerin-D5w Pmx 50 7.5 18.0 25.775 mg In Dextrose/Water 1 250ml.bag @ 5 MCG/MIN 1.5 mls/hr IV .Q24H [facility]Y Rx#: [id number] Propofol 500 mg In Empty 71.1 Bag 1 bag @ Titrate IV . Q0M [facility] Rx#:[id number] Sodium Phosphate 10 mmol 150 In Sodium Chloride 0.9% 100 ml @ 50 mls/hr IVPB Q2H [facility] Rx#:[id number] ceFAZolin 2 gm In Sodium 200 100 100 Chloride 0.9% 100 ml @ 100 mls/hr IVPB Q8HR TRACEY Rx#:[id number] Oral 100 Output: Chest Tube Drainage 270 741 230 Chest Tube Left Anterior 112 245 90 Chest Chest Tube Right Anterior 55 201 80 Chest Mediastinal 103 295 60 Urine 1105 570 133 Estimated Blood Loss 600 Other: Voiding Method Indwelling Catheter Indwelling Catheter Indwelling Catheter ABP, PAP, CO, CI - Last Documented Arterial Blood Pressure 105/53 Pulmonary Artery Pressure 17/10 Cardiac Output 6.5 Cardiac Index 3.2 - Constitutional General appearance: Present: cooperative, no acute distress, obese - Respiratory Details: Lungs sounds diminished bilaterally with expiratory wheezes present. Respirations even, nonlabored. Currently on 4 L nasal cannula. Able to achieve 500 mL on his incentive spirometry. Left pleural chest tube with 210 mL serous drainage overnight, 400 mL since surgery. Right pleural chest tube with 160 mL serous drainage overnight, 300 mL since surgery. Mediastinal chest tube with 230 mL serous drainage overnight, 430 mL last 24 hours. No air leaks present. - Cardiovascular Details: S1, S2 present. Regular rate and rhythm, normal sinus rhythm on telemetry. Sternum stable. Heart hugger placed patient demonstrating appropriate use. Teds/SCDs present. - Gastrointestinal Gastrointestinal Comment(s): Abdomen soft, nontender, nondistended. Active bowel sounds 4 quadrants. Tolerating diet. - Genitourinary Genitourinary Comment(s): Chandler present draining clear, yellow urine. Urine output 35-80 mL/h. - Integumentary Integumentary Comment(s): Anterior chest incision covered with dry intact dressing. - Musculoskeletal Musculoskeletal: Present: gait normal, strength equal bilaterally - Psychiatric Psychiatric: Present: A&O x's 3, appropriate affect, intact judgment & insight - Allied health notes Allied health notes reviewed: nursing - Labs CBC & Chem 7: 10/10/16 04:35 10/10/16 04:35 Labs: Abnormal Lab Results - Last 24 Hours (Table) 10/08/16 10/09/16 10/09/16 Range/Units 16:57 11:55 12:17 WBC (3.8-10.6) k/uL RBC (4.30-5.90) m/uL Hgb (13.0-17.5) gm/dL Hct (39.0-53.0) % Plt Count (150-450) k/uL Neutrophils # (1.3-7.7) k/uL Lymphocytes # (1.0-4.8) k/uL PT (9.0-12.0) sec ABG pH (7.35-7.45) ABG pCO2 (35-45) mmHg ABG pO2 (83-108) mmHg Chloride (98-107) mmol/L Glucose (74-99) mg/dL POC Glucose (mg/dL) 153 H 144 H (75-99) mg/dL Calcium (8.4-10.2) mg/dL Phosphorus (2.5-4.5) mg/dL AST (17-59) U/L Alkaline Phosphatase (38-126) U/L Total Protein (6.3-8.2) g/dL Crossmatch See Detail 10/09/16 10/09/16 10/09/16 Range/Units 12:48 13:32 14:15 WBC (3.8-10.6) k/uL RBC (4.30-5.90) m/uL Hgb (13.0-17.5) gm/dL Hct (39.0-53.0) % Plt Count (150-450) k/uL Neutrophils # (1.3-7.7) k/uL Lymphocytes # (1.0-4.8) k/uL PT (9.0-12.0) sec ABG pH 7.22 L (7.35-7.45) ABG pCO2 55 H (35-45) mmHg ABG pO2 76 L (83-108) mmHg Chloride (98-107) mmol/L Glucose (74-99) mg/dL POC Glucose (mg/dL) 146 H 139 H (75-99) mg/dL Calcium (8.4-10.2) mg/dL Phosphorus (2.5-4.5) mg/dL AST (17-59) U/L Alkaline Phosphatase (38-126) U/L Total Protein (6.3-8.2) g/dL Crossmatch 10/09/16 10/09/16 10/09/16 Range/Units 14:44 14:46 14:46 WBC 13.0 H (3.8-10.6) k/uL RBC 3.41 L (4.30-5.90) m/uL Hgb 10.4 L D (13.0-17.5) gm/dL Hct 31.8 L (39.0-53.0) % Plt Count (150-450) k/uL Neutrophils # 11.1 H (1.3-7.7) k/uL Lymphocytes # (1.0-4.8) k/uL PT (9.0-12.0) sec ABG pH (7.35-7.45) ABG pCO2 (35-45) mmHg ABG pO2 (83-108) mmHg Chloride 108 H (98-107) mmol/L Glucose 146 H (74-99) mg/dL POC Glucose (mg/dL) 143 H (75-99) mg/dL Calcium 8.0 L (8.4-10.2) mg/dL Phosphorus (2.5-4.5) mg/dL AST 73 H (17-59) U/L Alkaline Phosphatase 32 L (38-126) U/L Total Protein (6.3-8.2) g/dL Crossmatch 10/09/16 10/09/16 10/09/16 Range/Units 15:00 15:46 16:51 WBC 10.7 H (3.8-10.6) k/uL RBC 3.34 L (4.30-5.90) m/uL Hgb 10.1 L (13.0-17.5) gm/dL Hct 30.5 L (39.0-53.0) % Plt Count 145 L (150-450) k/uL Neutrophils # 9.6 H (1.3-7.7) k/uL Lymphocytes # 0.5 L (1.0-4.8) k/uL PT (9.0-12.0) sec ABG pH 7.27 L (7.35-7.45) ABG pCO2 50 H (35-45) mmHg ABG pO2 (83-108) mmHg Chloride (98-107) mmol/L Glucose (74-99) mg/dL POC Glucose (mg/dL) 172 H (75-99) mg/dL Calcium (8.4-10.2) mg/dL Phosphorus (2.5-4.5) mg/dL AST (17-59) U/L Alkaline Phosphatase (38-126) U/L Total Protein (6.3-8.2) g/dL Crossmatch 10/09/16 10/09/16 10/09/16 Range/Units 16:52 17:57 19:02 WBC (3.8-10.6) k/uL RBC (4.30-5.90) m/uL Hgb (13.0-17.5) gm/dL Hct (39.0-53.0) % Plt Count (150-450) k/uL Neutrophils # (1.3-7.7) k/uL Lymphocytes # (1.0-4.8) k/uL PT (9.0-12.0) sec ABG pH (7.35-7.45) ABG pCO2 (35-45) mmHg ABG pO2 (83-108) mmHg Chloride (98-107) mmol/L Glucose (74-99) mg/dL POC Glucose (mg/dL) 158 H 162 H 146 H (75-99) mg/dL Calcium (8.4-10.2) mg/dL Phosphorus (2.5-4.5) mg/dL AST (17-59) U/L Alkaline Phosphatase (38-126) U/L Total Protein (6.3-8.2) g/dL Crossmatch 10/09/16 10/09/16 10/09/16 Range/Units 19:57 20:52 20:52 WBC (3.8-10.6) k/uL RBC (4.30-5.90) m/uL Hgb (13.0-17.5) gm/dL Hct (39.0-53.0) % Plt Count (150-450) k/uL Neutrophils # (1.3-7.7) k/uL Lymphocytes # (1.0-4.8) k/uL PT (9.0-12.0) sec ABG pH (7.35-7.45) ABG pCO2 (35-45) mmHg ABG pO2 (83-108) mmHg Chloride 109 H (98-107) mmol/L Glucose 112 H (74-99) mg/dL POC Glucose (mg/dL) 122 H 119 H (75-99) mg/dL Calcium 8.3 L (8.4-10.2) mg/dL Phosphorus 1.6 L (2.5-4.5) mg/dL AST (17-59) U/L Alkaline Phosphatase (38-126) U/L Total Protein (6.3-8.2) g/dL Crossmatch 10/09/16 10/09/16 10/09/16 Range/Units 21:50 22:02 22:15 WBC (3.8-10.6) k/uL RBC 3.26 L (4.30-5.90) m/uL Hgb 10.3 L (13.0-17.5) gm/dL Hct 29.1 L (39.0-53.0) % Plt Count 130 L (150-450) k/uL Neutrophils # (1.3-7.7) k/uL Lymphocytes # 0.7 L (1.0-4.8) k/uL PT (9.0-12.0) sec ABG pH (7.35-7.45) ABG pCO2 (35-45) mmHg ABG pO2 73 L (83-108) mmHg Chloride (98-107) mmol/L Glucose (74-99) mg/dL POC Glucose (mg/dL) 109 H (75-99) mg/dL Calcium (8.4-10.2) mg/dL Phosphorus (2.5-4.5) mg/dL AST (17-59) U/L Alkaline Phosphatase (38-126) U/L Total Protein (6.3-8.2) g/dL Crossmatch 10/09/16 10/10/16 10/10/16 Range/Units 22:52 00:02 00:56 WBC (3.8-10.6) k/uL RBC (4.30-5.90) m/uL Hgb (13.0-17.5) gm/dL Hct (39.0-53.0) % Plt Count (150-450) k/uL Neutrophils # (1.3-7.7) k/uL Lymphocytes # (1.0-4.8) k/uL PT (9.0-12.0) sec ABG pH (7.35-7.45) ABG pCO2 (35-45) mmHg ABG pO2 (83-108) mmHg Chloride (98-107) mmol/L Glucose (74-99) mg/dL POC Glucose (mg/dL) 127 H 115 H 113 H (75-99) mg/dL Calcium (8.4-10.2) mg/dL Phosphorus (2.5-4.5) mg/dL AST (17-59) U/L Alkaline Phosphatase (38-126) U/L Total Protein (6.3-8.2) g/dL Crossmatch 10/10/16 10/10/16 10/10/16 Range/Units 02:00 04:35 04:35 WBC (3.8-10.6) k/uL RBC 3.28 L (4.30-5.90) m/uL Hgb 9.9 L (13.0-17.5) gm/dL Hct 30.3 L (39.0-53.0) % Plt Count 139 L (150-450) k/uL Neutrophils # (1.3-7.7) k/uL Lymphocytes # 0.9 L (1.0-4.8) k/uL PT (9.0-12.0) sec ABG pH (7.35-7.45) ABG pCO2 (35-45) mmHg ABG pO2 (83-108) mmHg Chloride 111 H (98-107) mmol/L Glucose 114 H (74-99) mg/dL POC Glucose (mg/dL) 132 H (75-99) mg/dL Calcium 8.3 L (8.4-10.2) mg/dL Phosphorus (2.5-4.5) mg/dL AST 111 H (17-59) U/L Alkaline Phosphatase 30 L (38-126) U/L Total Protein 5.8 L (6.3-8.2) g/dL Crossmatch 10/10/16 10/10/16 10/10/16 Range/Units 04:35 04:35 05:26 WBC (3.8-10.6) k/uL RBC (4.30-5.90) m/uL Hgb (13.0-17.5) gm/dL Hct (39.0-53.0) % Plt Count (150-450) k/uL Neutrophils # (1.3-7.7) k/uL Lymphocytes # (1.0-4.8) k/uL PT 12.1 H (9.0-12.0) sec ABG pH (7.35-7.45) ABG pCO2 (35-45) mmHg ABG pO2 (83-108) mmHg Chloride (98-107) mmol/L Glucose (74-99) mg/dL POC Glucose (mg/dL) 119 H 116 H (75-99) mg/dL Calcium (8.4-10.2) mg/dL Phosphorus (2.5-4.5) mg/dL AST (17-59) U/L Alkaline Phosphatase (38-126) U/L Total Protein (6.3-8.2) g/dL Crossmatch 10/10/16 10/10/16 10/10/16 Range/Units 06:23 08:41 10:11 WBC (3.8-10.6) k/uL RBC (4.30-5.90) m/uL Hgb (13.0-17.5) gm/dL Hct (39.0-53.0) % Plt Count (150-450) k/uL Neutrophils # (1.3-7.7) k/uL Lymphocytes # (1.0-4.8) k/uL PT (9.0-12.0) sec ABG pH (7.35-7.45) ABG pCO2 (35-45) mmHg ABG pO2 (83-108) mmHg Chloride (98-107) mmol/L Glucose (74-99) mg/dL POC Glucose (mg/dL) 129 H 105 H 132 H (75-99) mg/dL Calcium (8.4-10.2) mg/dL Phosphorus (2.5-4.5) mg/dL AST (17-59) U/L Alkaline Phosphatase (38-126) U/L Total Protein (6.3-8.2) g/dL Crossmatch 10/10/16 Range/Units 11:31 WBC (3.8-10.6) k/uL RBC (4.30-5.90) m/uL Hgb (13.0-17.5) gm/dL Hct (39.0-53.0) % Plt Count (150-450) k/uL Neutrophils # (1.3-7.7) k/uL Lymphocytes # (1.0-4.8) k/uL PT (9.0-12.0) sec ABG pH (7.35-7.45) ABG pCO2 (35-45) mmHg ABG pO2 (83-108) mmHg Chloride (98-107) mmol/L Glucose (74-99) mg/dL POC Glucose (mg/dL) 137 H (75-99) mg/dL Calcium (8.4-10.2) mg/dL Phosphorus (2.5-4.5) mg/dL AST (17-59) U/L Alkaline Phosphatase (38-126) U/L Total Protein (6.3-8.2) g/dL Crossmatch - Imaging and Cardiology Chest x-ray: report reviewed, image reviewed Assessment and Plan (1) History of pulmonary embolism Status: Acute (2) HTN (hypertension) Status: Acute (3) Hyperlipemia Status: Acute (4) Non-STEMI (non-ST elevated myocardial infarction) Status: Acute (5) S/P cardiac cath Status: Acute Plan: 1. Continue aspirin, statin, beta hua, Plavix. Maximize beta hua as appropriate. 2. DC Primacor, Precedex, nitro drip. 3. Increase activity, ambulate in room. Physical therapy to follow. 4. Incentive spirometry encouraged. 5. DC [place]. 6. GI/DVT prophylaxis. 7. More recommendations as patient progresses. Time with Patient: Greater than 30
[2016-10-10 12:31] LABS: Glucose,Whole Blood 124 mg/dL (75-99)
[2016-10-10 13:39] LABS: Glucose,Whole Blood 116 mg/dL (75-99)
--- NOTE | 2016-10-10 13:45 | P.PN ---
Subjective Principal diagnosis: Status post CABG, postoperative day #1. 71-year-old white male with history of hypertension, remote history of pulmonary embolism following hernia surgery, patient was on anticoagulation therapy for one year. At that time he was taken care of by Dr. Rehman. Since then, the patient did not have any history to suggest any thromboembolic disease. Patient presented with acute onset of chest pain while shopping at the [employer] on Thursday, upon presentation to the ER, patient was found to have positive troponin and EKG changes. Cardiac catheterization showed significant LAD and circumflex disease. Patient was seen by surgery on consultation, and he is scheduled to undergo surgery sometime later this week. Pulmonary-ernandez patient has no history of COPD, he is a nonsmoker, physically active, can even run a mile before this episode of chest pain. No cough no wheezing no shortness of breath. Patient did have remote history of pulmonary embolism about 20 years ago provoked by hernia surgery. Presently the patient is asymptomatic, no pulmonary symptoms, no headaches no blurred vision no dizziness. No nausea no vomiting no abdominal pain no melena no hematemesis is no dysuria frequency or urgency. Chest x-ray questioned a small tiny nodule, I reviewed the chest x-ray, the finding is not significant, I believe this is more of a summation shadow or could be a nipple shadow, but patient this can be addressed with x-rays with nipple markers, and down the line if the nodule is true one can consider CT of the chest, but at this point I don't see the value of a CT of the chest.index of suspicion for malignancy is rather low. On 10/07/2016, patient continues to do well, no cough no wheezing no shortness of breath, I did recommend repeat chest x-ray with nipple markers on the left side , and if necessary, may order a CT of the chest without contrast. However, presence of a tiny nodule should not delay any plans for anticipated surgery for CABG. A shunt has no pulmonary symptoms whatsoever. Labs from today were all reviewed including a normal CBC and normal basic metabolic profile. Heparin is therapeutic with a PTT of 45.9. On 10/08/2016, patient continues to do well, asymptomatic, no cough no wheezing no shortness of breath, reviewed the results of his chest x-ray done today, no worrisome findings to speak of. patient was clearly ready for surgery and I believe is scheduled tomorow. Patient is seen again today 10/09/2016 in follow-up. He is status post coronary artery bypass grafting utilizing the WATT to the LAD and sequential KERA off the WATT to the diagonal and OM 1. He is seen immediately upon return in the intensive care unit. He is currently on the ventilator with SIMV of 12 tidal volume 500 FiO2 100% and a PEEP of 5. ABGs are pending. There are [address] to the right, left and mediastinum. His current drips include insulin at 1.5 units per hour, nitroglycerin at 5 mg/m, milrinone at 0.25 mcg/kg/m, propofol at 45 mcg/m. Cleviprex at 1 mg per hour. He has a lactated Ringer's at maintenance. White count 13.0, hemoglobin 10.4, creatinine 0.70. Pulmonary artery pressure 49/28, CVP 18. He is maintaining good O2 saturations in the high 90s to 100%. On 10/10/2016, patient was extubated last night uneventfully, required to be placed on Precedex instead of propofol drip because of extreme agitation while on mechanical ventilation. At one point I had to give the patient 10 mg of Nimbex to be able to ventilate improperly and this was shortly after he arrived to the ICU last night. Overnight the patient did quite well, Precedex seems to work much better than propofol for this patient, and he was extubated uneventfully. This morning the patient seems to be doing well, asymptomatic, no cough no wheezing no shortness of breath. Chest x-ray is suggestive of mild congestive changes CBC is relatively unremarkable. Basic metabolic profile is relatively normal. Objective - Vital Signs Vital signs: Vital Signs Temp 99.5 F 10/10/16 11:00 Pulse 87 10/10/16 11:09 Resp 20 10/10/16 11:00 BP 110/53 10/10/16 11:00 Pulse Ox 99 10/10/16 11:00 Intake & Output 10/09/16 10/10/16 10/10/16 18:59 06:59 18:59 Intake Total 176.553 1060.383 861.875 Output Total 1975 1311 493 Balance -1443.683 410.383 368.875 Weight 93.2 kg Intake: IV 3 160 30 Cardiac Output 160 30 Intake, IV Titration 647.391 1657.383 831.875 Amount ACETAMINOPHEN IV (For NPO 200 100 ) 1,000 mg In Empty Bag 1 bag @ 400 mls/hr IVPB Q6HR [facility] Rx#:[id number] Albumin Human 5% 250 ml 250 250 In Empty Bag 1 bag @ 250 mls/hr IVPB Q1HR PRN Rx#: [id number] Clevidipine Butyrate 25 12.933 mg In Empty Bag 1 bag @ 1 MG/HR 2 mls/hr IV .Q24H [facility] Rx#:[id number] Dexmedetomidine 400 mcg 51.666 In Sodium Chloride 0.9% 100 ml @ Titrate IV .Q0M [facility] Rx#:[id number] Insulin Regular 100 unit 3.784 15.017 In Sodium Chloride 0.9% 100 ml @ Titrate IV .Q0M PRN Rx#:[id number] Lactated Ringers 1,000 ml 200 600 350 @ 20 mls/hr IV .Q24H [facility] Rx#:[id number] Milrinone-D5w Pmx 20 mg 33.0 76.7 6.1 In Dextrose/Water 1 100ml .bag @ Per Protocol IV . Q0M [facility] Rx#:[id number] Nitroglycerin-D5w Pmx 50 7.5 18.0 25.775 mg In Dextrose/Water 1 250ml.bag @ 5 MCG/MIN 1.5 mls/hr IV .Q24H [facility] Rx#: [id number] Propofol 500 mg In Empty 71.1 Bag 1 bag @ Titrate IV . Q0M [facility] Rx#:[id number] Sodium Phosphate 10 mmol 150 In Sodium Chloride 0.9% 100 ml @ 50 mls/hr IVPB Q2H [facility] Rx#:[id number] ceFAZolin 2 gm In Sodium 200 100 100 Chloride 0.9% 100 ml @ 100 mls/hr IVPB Q8HR [facility] Rx#:[id number] Oral 100 Output: Chest Tube Drainage 270 741 310 Chest Tube Left Anterior 112 245 110 Chest Chest Tube Right Anterior 55 201 100 Chest Mediastinal 103 295 100 Urine 1105 570 183 Estimated Blood Loss 600 Other: Voiding Method Indwelling Catheter Indwelling Catheter Indwelling Catheter ABP, PAP, CO, CI - Last Documented Arterial Blood Pressure 105/53 Pulmonary Artery Pressure 17/10 Cardiac Output 6.5 Cardiac Index 3.2 - Exam Physical Exam: Revealed a 71-year-old white male in no distress. On nasal cannula HEENT:[Neck is supple.] [No neck masses.] [No thyromegaly.] [No JVD.] Chest: [Minimal crackles at the bases bilaterally, no rhonchi, no wheezes.] Cardiac Exam: [Normal S1 and S2, no S3 gallop, no murmur.] Abdomen: [Soft, nontender, no megaly, no rebound, no guarding, normal bowel sounds.] Extremities: [No clubbing, no edema, no cyanosis.] Neurological Exam: [No focal neurologic deficit.] - Labs CBC & Chem 7: 10/10/16 04:35 10/10/16 04:35 Labs: Abnormal Lab Results - Last 24 Hours (Table) 10/08/16 10/09/16 10/09/16 Range/Units 16:57 14:15 14:44 WBC (3.8-10.6) k/uL RBC (4.30-5.90) m/uL Hgb (13.0-17.5) gm/dL Hct (39.0-53.0) % Plt Count (150-450) k/uL Neutrophils # (1.3-7.7) k/uL Lymphocytes # (1.0-4.8) k/uL PT (9.0-12.0) sec ABG pH 7.22 L (7.35-7.45) ABG pCO2 55 H (35-45) mmHg ABG pO2 76 L (83-108) mmHg Chloride (98-107) mmol/L Glucose (74-99) mg/dL POC Glucose (mg/dL) 143 H (75-99) mg/dL Calcium (8.4-10.2) mg/dL Phosphorus (2.5-4.5) mg/dL AST (17-59) U/L Alkaline Phosphatase (38-126) U/L Total Protein (6.3-8.2) g/dL Crossmatch See Detail 10/09/16 10/09/16 10/09/16 Range/Units 14:46 14:46 15:00 WBC 13.0 H (3.8-10.6) k/uL RBC 3.41 L (4.30-5.90) m/uL Hgb 10.4 L D (13.0-17.5) gm/dL Hct 31.8 L (39.0-53.0) % Plt Count (150-450) k/uL Neutrophils # 11.1 H (1.3-7.7) k/uL Lymphocytes # (1.0-4.8) k/uL PT (9.0-12.0) sec ABG pH 7.27 L (7.35-7.45) ABG pCO2 50 H (35-45) mmHg ABG pO2 (83-108) mmHg Chloride 108 H (98-107) mmol/L Glucose 146 H (74-99) mg/dL POC Glucose (mg/dL) (75-99) mg/dL Calcium 8.0 L (8.4-10.2) mg/dL Phosphorus (2.5-4.5) mg/dL AST 73 H (17-59) U/L Alkaline Phosphatase 32 L (38-126) U/L Total Protein (6.3-8.2) g/dL Crossmatch 10/09/16 10/09/16 10/09/16 Range/Units 15:46 16:51 16:52 WBC 10.7 H (3.8-10.6) k/uL RBC 3.34 L (4.30-5.90) m/uL Hgb 10.1 L (13.0-17.5) gm/dL Hct 30.5 L (39.0-53.0) % Plt Count 145 L (150-450) k/uL Neutrophils # 9.6 H (1.3-7.7) k/uL Lymphocytes # 0.5 L (1.0-4.8) k/uL PT (9.0-12.0) sec ABG pH (7.35-7.45) ABG pCO2 (35-45) mmHg ABG pO2 (83-108) mmHg Chloride (98-107) mmol/L Glucose (74-99) mg/dL POC Glucose (mg/dL) 172 H 158 H (75-99) mg/dL Calcium (8.4-10.2) mg/dL Phosphorus (2.5-4.5) mg/dL AST (17-59) U/L Alkaline Phosphatase (38-126) U/L Total Protein (6.3-8.2) g/dL Crossmatch 10/09/16 10/09/16 10/09/16 Range/Units 17:57 19:02 19:57 WBC (3.8-10.6) k/uL RBC (4.30-5.90) m/uL Hgb (13.0-17.5) gm/dL Hct (39.0-53.0) % Plt Count (150-450) k/uL Neutrophils # (1.3-7.7) k/uL Lymphocytes # (1.0-4.8) k/uL PT (9.0-12.0) sec ABG pH (7.35-7.45) ABG pCO2 (35-45) mmHg ABG pO2 (83-108) mmHg Chloride (98-107) mmol/L Glucose (74-99) mg/dL POC Glucose (mg/dL) 162 H 146 H 122 H (75-99) mg/dL Calcium (8.4-10.2) mg/dL Phosphorus (2.5-4.5) mg/dL AST (17-59) U/L Alkaline Phosphatase (38-126) U/L Total Protein (6.3-8.2) g/dL Crossmatch 10/09/16 10/09/16 10/09/16 Range/Units 20:52 20:52 21:50 WBC (3.8-10.6) k/uL RBC 3.26 L (4.30-5.90) m/uL Hgb 10.3 L (13.0-17.5) gm/dL Hct 29.1 L (39.0-53.0) % Plt Count 130 L (150-450) k/uL Neutrophils # (1.3-7.7) k/uL Lymphocytes # 0.7 L (1.0-4.8) k/uL PT (9.0-12.0) sec ABG pH (7.35-7.45) ABG pCO2 (35-45) mmHg ABG pO2 (83-108) mmHg Chloride 109 H (98-107) mmol/L Glucose 112 H (74-99) mg/dL POC Glucose (mg/dL) 119 H (75-99) mg/dL Calcium 8.3 L (8.4-10.2) mg/dL Phosphorus 1.6 L (2.5-4.5) mg/dL AST (17-59) U/L Alkaline Phosphatase (38-126) U/L Total Protein (6.3-8.2) g/dL Crossmatch 10/09/16 10/09/16 10/09/16 Range/Units 22:02 22:15 22:52 WBC (3.8-10.6) k/uL RBC (4.30-5.90) m/uL Hgb (13.0-17.5) gm/dL Hct (39.0-53.0) % Plt Count (150-450) k/uL Neutrophils # (1.3-7.7) k/uL Lymphocytes # (1.0-4.8) k/uL PT (9.0-12.0) sec ABG pH (7.35-7.45) ABG pCO2 (35-45) mmHg ABG pO2 73 L (83-108) mmHg Chloride (98-107) mmol/L Glucose (74-99) mg/dL POC Glucose (mg/dL) 109 H 127 H (75-99) mg/dL Calcium (8.4-10.2) mg/dL Phosphorus (2.5-4.5) mg/dL AST (17-59) U/L Alkaline Phosphatase (38-126) U/L Total Protein (6.3-8.2) g/dL Crossmatch 10/10/16 10/10/16 10/10/16 Range/Units 00:02 00:56 02:00 WBC (3.8-10.6) k/uL RBC (4.30-5.90) m/uL Hgb (13.0-17.5) gm/dL Hct (39.0-53.0) % Plt Count (150-450) k/uL Neutrophils # (1.3-7.7) k/uL Lymphocytes # (1.0-4.8) k/uL PT (9.0-12.0) sec ABG pH (7.35-7.45) ABG pCO2 (35-45) mmHg ABG pO2 (83-108) mmHg Chloride (98-107) mmol/L Glucose (74-99) mg/dL POC Glucose (mg/dL) 115 H 113 H 132 H (75-99) mg/dL Calcium (8.4-10.2) mg/dL Phosphorus (2.5-4.5) mg/dL AST (17-59) U/L Alkaline Phosphatase (38-126) U/L Total Protein (6.3-8.2) g/dL Crossmatch 10/10/16 10/10/16 10/10/16 Range/Units 04:35 04:35 04:35 WBC (3.8-10.6) k/uL RBC 3.28 L (4.30-5.90) m/uL Hgb 9.9 L (13.0-17.5) gm/dL Hct 30.3 L (39.0-53.0) % Plt Count 139 L (150-450) k/uL Neutrophils # (1.3-7.7) k/uL Lymphocytes # 0.9 L (1.0-4.8) k/uL PT (9.0-12.0) sec ABG pH (7.35-7.45) ABG pCO2 (35-45) mmHg ABG pO2 (83-108) mmHg Chloride 111 H (98-107) mmol/L Glucose 114 H (74-99) mg/dL POC Glucose (mg/dL) 119 H (75-99) mg/dL Calcium 8.3 L (8.4-10.2) mg/dL Phosphorus (2.5-4.5) mg/dL AST 111 H (17-59) U/L Alkaline Phosphatase 30 L (38-126) U/L Total Protein 5.8 L (6.3-8.2) g/dL Crossmatch 10/10/16 10/10/16 10/10/16 Range/Units 04:35 05:26 06:23 WBC (3.8-10.6) k/uL RBC (4.30-5.90) m/uL Hgb (13.0-17.5) gm/dL Hct (39.0-53.0) % Plt Count (150-450) k/uL Neutrophils # (1.3-7.7) k/uL Lymphocytes # (1.0-4.8) k/uL PT 12.1 H (9.0-12.0) sec ABG pH (7.35-7.45) ABG pCO2 (35-45) mmHg ABG pO2 (83-108) mmHg Chloride (98-107) mmol/L Glucose (74-99) mg/dL POC Glucose (mg/dL) 116 H 129 H (75-99) mg/dL Calcium (8.4-10.2) mg/dL Phosphorus (2.5-4.5) mg/dL AST (17-59) U/L Alkaline Phosphatase (38-126) U/L Total Protein (6.3-8.2) g/dL Crossmatch 10/10/16 10/10/16 10/10/16 Range/Units 08:41 10:11 11:31 WBC (3.8-10.6) k/uL RBC (4.30-5.90) m/uL Hgb (13.0-17.5) gm/dL Hct (39.0-53.0) % Plt Count (150-450) k/uL Neutrophils # (1.3-7.7) k/uL Lymphocytes # (1.0-4.8) k/uL PT (9.0-12.0) sec ABG pH (7.35-7.45) ABG pCO2 (35-45) mmHg ABG pO2 (83-108) mmHg Chloride (98-107) mmol/L Glucose (74-99) mg/dL POC Glucose (mg/dL) 105 H 132 H 137 H (75-99) mg/dL Calcium (8.4-10.2) mg/dL Phosphorus (2.5-4.5) mg/dL AST (17-59) U/L Alkaline Phosphatase (38-126) U/L Total Protein (6.3-8.2) g/dL Crossmatch 10/10/16 10/10/16 Range/Units 12:27 13:37 WBC (3.8-10.6) k/uL RBC (4.30-5.90) m/uL Hgb (13.0-17.5) gm/dL Hct (39.0-53.0) % Plt Count (150-450) k/uL Neutrophils # (1.3-7.7) k/uL Lymphocytes # (1.0-4.8) k/uL PT (9.0-12.0) sec ABG pH (7.35-7.45) ABG pCO2 (35-45) mmHg ABG pO2 (83-108) mmHg Chloride (98-107) mmol/L Glucose (74-99) mg/dL POC Glucose (mg/dL) 124 H 116 H (75-99) mg/dL Calcium (8.4-10.2) mg/dL Phosphorus (2.5-4.5) mg/dL AST (17-59) U/L Alkaline Phosphatase (38-126) U/L Total Protein (6.3-8.2) g/dL Crossmatch Assessment and Plan Plan: #1 Non-ST elevation myocardial infarction. #2 Coronary artery disease status post coronary artery bypass grafting utilizing a WATT to the LAD, WATT to the KERA to the diagonal and OM 1. Operative day one #3 remote history of pulmonary embolism following hernia surgery about 20 years ago. #4 Hypertension, history of. Recommendation: Continue present treatment plan including incentive spirometry, deep cough and deep breathing, bronchodilators, and early ambulation. Time with Patient: Less than 30
[2016-10-10] MEDS ORDERED: IPRATROPIUM-ALBUTEROL 3 ML NEB INHALATION PRN (13:54)
[2016-10-10] MEDS ORDERED: BISACODYL 10 MG SUPP RECTAL PRN (13:54)
[2016-10-10] MEDS ORDERED: MAGNESIUM HYDROXIDE 2,400 MG/10 ML CUP PO PRN (13:54)
[2016-10-10] MEDS: CLEVIDIPINE BUTYRATE 25 MG in EMPTY BAG 1 BAG IV SCH (14:39)
[2016-10-10] MEDS: LACTATED RINGERS 1,000 ML IV SCH (14:40)
[2016-10-10] MEDS ORDERED: FUROSEMIDE 10 MG/ML 2 ML VIAL IV ONE (15:00)
[2016-10-10 15:09] LABS: Glucose,Whole Blood 130 mg/dL (75-99)
[2016-10-10 16:02] LABS: Glucose,Whole Blood 95 mg/dL (75-99)
[2016-10-10 17:31] LABS: Glucose,Whole Blood 108 mg/dL (75-99)
[2016-10-10 18:29] LABS: Glucose,Whole Blood 112 mg/dL (75-99)
[2016-10-10 20:02] LABS: Glucose,Whole Blood 129 mg/dL (75-99)
[2016-10-10] MEDS: SENNOSIDES-DOCUSATE SODIUM 1 EACH TAB PO SCH (20:36)
[2016-10-10 22:12] LABS: Glucose,Whole Blood 121 mg/dL (75-99)
[2016-10-10] MEDS: HYDROcodone/APAP 5-325MG 1 EACH TAB PO PRN (22:37)
[2016-10-10 23:07] LABS: Glucose,Whole Blood 119 mg/dL (75-99)
[2016-10-11 00:23] LABS: Glucose,Whole Blood 106 mg/dL (75-99)
[2016-10-11 01:28] LABS: Glucose,Whole Blood 115 mg/dL (75-99)
[2016-10-11 02:26] LABS: Glucose,Whole Blood 116 mg/dL (75-99)
[2016-10-11] MEDS: HYDROcodone/APAP 5-325MG 1 EACH TAB PO PRN ×5 (02:49→23:56)
[2016-10-11 04:21] LABS: Glucose,Whole Blood 116 mg/dL (75-99)
[2016-10-11 04:26] LABS: Basophils % (A) 0 %; CH 31.2; CHCM 34.5; Eosinophils # (A) 0.1 k/uL (0-0.7); Eosinophils % (A) 1 %; HCT 30.8 % (39.0-53.0); HDW 2.45; HGB 10.8 gm/dL (13.0-17.5); Luc # (Auto) 0.11; Luc % (Auto) 1; Lymphocytes # (A) 0.9 k/uL (1.0-4.8); Lymphocytes % (A) 11 %; MCH 31.9 pg (25.0-35.0); MCHC 35.1 g/dL (31.0-37.0); MCV 90.9 fL (80.0-100.0); Mean Platelet Volume 8.2; Monocytes # (A) 0.5 k/uL (0-1.0); Monocytes % (A) 6 %; Neutrophils # (A) 6.8 k/uL (1.3-7.7); Neutrophils % (A) 80 %; RBC 3.39 m/uL (4.30-5.90); RDW 12.6 % (11.5-15.5); WBC 8.5 k/uL (3.8-10.6); WBC (Perox) 8.76
[2016-10-11 04:34] LABS: INR 1.2 (<1.1); Prothrombin Time 11.8 sec (9.0-12.0)
[2016-10-11 04:47] LABS: Ionized Calcium 5.2 mg/dL (4.5-5.3)
[2016-10-11 05:10] LABS: ALT 39 U/L (21-72); AST 66 U/L (17-59); Alkaline Phosphatase 35 U/L (38-126); Anion Gap 8 mmol/L; Blood Urea Nitrogen 17 mg/dL (9-20); Calcium 8.4 mg/dL (8.4-10.2); Carbon Dioxide 25 mmol/L (22-30); Chloride 105 mmol/L (98-107); Glucose 113 mg/dL (74-99); Non-African American GFR(MDRD) >60 (>60 ml/min/1.73 sqM); Phosphorous 2.6 mg/dL (2.5-4.5); Potassium 3.8 mmol/L (3.5-5.1); Sodium 138 mmol/L (137-145); Total Bilirubin 0.9 mg/dL (0.2-1.3); Total Protein 5.4 g/dL (6.3-8.2)
[2016-10-11] MEDS ORDERED: POTASSIUM CHLORIDE ER 20 MEQ TAB.ER PO SCH ×4 (06:00→20:00)
[2016-10-11 06:21] LABS: Glucose,Whole Blood 112 mg/dL (75-99)
[2016-10-11] MEDS: KETOROLAC 30 MG/ML 1 ML VIAL IVP SCH ×3 (07:57→20:01)
[2016-10-11] MEDS: MAGNESIUM SULFATE-D5W PMX 1 GM in DEXTROSE/WATER 1 100ML.BAG IVPB SCH ×2 (07:59→09:12)
[2016-10-11] MEDS: ASPIRIN 325 MG TAB PO SCH (08:00)
[2016-10-11] MEDS: ATORVASTATIN 40 MG TAB PO SCH (08:00)
[2016-10-11] MEDS: HEPARIN SODIUM,PORCINE 5,000 UNIT/ML 1 ML VIAL SQ SCH ×3 (08:00→23:57)
[2016-10-11] MEDS: PANTOPRAZOLE 40 MG TABLET PO SCH (08:00)
[2016-10-11] MEDS: CLOPIDOGREL 75 MG TAB PO SCH (08:01)
[2016-10-11] MEDS: METOPROLOL TARTRATE 12.5 MG TAB PO SCH (08:01)
--- NOTE | 2016-10-11 08:13 | XR ---
EXAMINATION TYPE: XR chest 1V portable DATE OF EXAM: 10/11/2016 6:37 AM COMPARISON: Prior chest x-ray 10 Oct 2016 HISTORY: Postop cardiac care, chest tube TECHNIQUE: Single frontal view of the chest is obtained. FINDINGS: Bilateral chest tubes remain in place, median sternotomy drain is present. Central venous catheter has been removed, sheath remains in place the right jugular location. Patient is post median sternotomy and the heart remains enlarged. There is some improvement in aeration. No sizable pneumot horax or pleural effusion. Pulmonary vascularity and soledad not significantly changed. IMPRESSION: Some improvement in aeration, volume status is suspected.
[2016-10-11] MEDS: IPRATROPIUM-ALBUTEROL 3 ML NEB INHALATION SCH ×4 (08:41→20:27)
[2016-10-11] MEDS: MUPIROCIN 2% OINT 22 GM TUBE NASAL SCH ×2 (09:14→20:11)
--- NOTE | 2016-10-11 10:20 | P.PN ---
Subjective Principal diagnosis: CAD and status post CABG This is a pleasant 71-year-old gentleman who presented to the hospital with a chest discomfort consistent was unstable angina. He underwent a heart catheterization which showed critical disease involving the proximal LAD with post stenotic predilatation and lesion involving the diagonal is well. He underwent CABG 2 with WATT to LAD and KERA to diagonal. From the standpoint, he is doing well. He has been maintaining normal sinus mechanism. He is on dual antiplatelet therapy along with a statin. Objective - Vital Signs Vital signs: Vital Signs Temp 98 F 10/11/16 08:00 Pulse 85 10/11/16 09:03 Resp 19 10/11/16 09:00 BP 100/55 10/10/16 18:00 Pulse Ox 100 10/11/16 09:00 Intake & Output 10/10/16 10/11/16 10/11/16 18:59 06:59 18:59 Intake Total 1119.858 621.458 250 Output Total 1128 1325 220 Balance -8.142 -703.542 30 Weight 93.2 kg 91.7 kg Intake: IV 30 Cardiac Output 30 Intake, IV Titration 1089.858 601.458 150 Amount ACETAMINOPHEN IV (For NPO 100 ) 1,000 mg In Empty Bag 1 bag @ 400 mls/hr IVPB Q6HR [facility] Rx#:[id number] Albumin Human 5% 250 ml 250 In Empty Bag 1 bag @ 250 mls/hr IVPB Q1HR PRN Rx#: [id number] Insulin Regular 100 unit 7.983 1.458 In Sodium Chloride 0.9% 100 ml @ Titrate IV .Q0M PRN Rx#:[id number] Lactated Ringers 1,000 ml 600 600 150 @ 20 mls/hr IV .Q24H [facility] Rx#:[id number] Milrinone-D5w Pmx 20 mg 6.1 In Dextrose/Water 1 100ml .bag @ Per Protocol IV . Q0M [facility] Rx#:[id number] Nitroglycerin-D5w Pmx 50 25.775 mg In Dextrose/Water 1 250ml.bag @ 5 MCG/MIN 1.5 mls/hr IV .Q24H [facility] Rx#: [id number] ceFAZolin 2 gm In Sodium 100 Chloride 0.9% 100 ml @ 100 mls/hr IVPB Q8HR [facility] Rx#:[id number] Oral 20 100 Output: Chest Tube Drainage 370 380 60 Chest Tube Left Anterior 140 170 30 Chest Chest Tube Right Anterior 110 130 10 Chest Mediastinal 120 80 20 Urine 758 945 160 Other: Voiding Method Indwelling Catheter Indwelling Catheter ABP, PAP, CO, CI - Last Documented Arterial Blood Pressure 98/43 Pulmonary Artery Pressure 24/15 Cardiac Output 8.5 Cardiac Index 4.2 - Constitutional General appearance: Present: no acute distress - Respiratory Respiratory: bilateral: CTA - Cardiovascular Rhythm: regular - Labs CBC & Chem 7: 10/11/16 04:19 10/11/16 04:19 Labs: Abnormal Lab Results - Last 24 Hours (Table) 10/10/16 10/10/16 10/10/16 Range/Units 04:35 11:31 12:27 RBC (4.30-5.90) m/uL Hgb (13.0-17.5) gm/dL Hct (39.0-53.0) % Plt Count (150-450) k/uL Lymphocytes # (1.0-4.8) k/uL PT 12.1 H (9.0-12.0) sec Glucose (74-99) mg/dL POC Glucose (mg/dL) 137 H 124 H (75-99) mg/dL AST (17-59) U/L Alkaline Phosphatase (38-126) U/L Total Protein (6.3-8.2) g/dL Albumin (3.5-5.0) g/dL 10/10/16 10/10/16 10/10/16 Range/Units 13:37 15:08 17:28 RBC (4.30-5.90) m/uL Hgb (13.0-17.5) gm/dL Hct (39.0-53.0) % Plt Count (150-450) k/uL Lymphocytes # (1.0-4.8) k/uL PT (9.0-12.0) sec Glucose (74-99) mg/dL POC Glucose (mg/dL) 116 H 130 H 108 H (75-99) mg/dL AST (17-59) U/L Alkaline Phosphatase (38-126) U/L Total Protein (6.3-8.2) g/dL Albumin (3.5-5.0) g/dL 10/10/16 10/10/16 10/10/16 Range/Units 18:27 20:00 22:10 RBC (4.30-5.90) m/uL Hgb (13.0-17.5) gm/dL Hct (39.0-53.0) % Plt Count (150-450) k/uL Lymphocytes # (1.0-4.8) k/uL PT (9.0-12.0) sec Glucose (74-99) mg/dL POC Glucose (mg/dL) 112 H 129 H 121 H (75-99) mg/dL AST (17-59) U/L Alkaline Phosphatase (38-126) U/L Total Protein (6.3-8.2) g/dL Albumin (3.5-5.0) g/dL 10/10/16 10/11/16 10/11/16 Range/Units 23:05 00:17 01:26 RBC (4.30-5.90) m/uL Hgb (13.0-17.5) gm/dL Hct (39.0-53.0) % Plt Count (150-450) k/uL Lymphocytes # (1.0-4.8) k/uL PT (9.0-12.0) sec Glucose (74-99) mg/dL POC Glucose (mg/dL) 119 H 106 H 115 H (75-99) mg/dL AST (17-59) U/L Alkaline Phosphatase (38-126) U/L Total Protein (6.3-8.2) g/dL Albumin (3.5-5.0) g/dL 10/11/16 10/11/16 10/11/16 Range/Units 02:24 04:17 04:19 RBC (4.30-5.90) m/uL Hgb (13.0-17.5) gm/dL Hct (39.0-53.0) % Plt Count (150-450) k/uL Lymphocytes # (1.0-4.8) k/uL PT (9.0-12.0) sec Glucose 113 H (74-99) mg/dL POC Glucose (mg/dL) 116 H 116 H (75-99) mg/dL AST 66 H (17-59) U/L Alkaline Phosphatase 35 L (38-126) U/L Total Protein 5.4 L (6.3-8.2) g/dL Albumin 3.3 L (3.5-5.0) g/dL 10/11/16 10/11/16 Range/Units 04:19 06:19 RBC 3.39 L (4.30-5.90) m/uL Hgb 10.8 L (13.0-17.5) gm/dL Hct 30.8 L (39.0-53.0) % Plt Count 118 L (150-450) k/uL Lymphocytes # 0.9 L (1.0-4.8) k/uL PT (9.0-12.0) sec Glucose (74-99) mg/dL POC Glucose (mg/dL) 112 H (75-99) mg/dL AST (17-59) U/L Alkaline Phosphatase (38-126) U/L Total Protein (6.3-8.2) g/dL Albumin (3.5-5.0) g/dL Assessment and Plan Plan: Assessment #1 status post CABG 2 as described above #2 dyslipidemia Plan #1 continue the dual antiplatelet therapy and statin #2 continue metoprolol as well #3 follow-up with the patient
[2016-10-11] MEDS ORDERED: FUROSEMIDE 10 MG/ML 2 ML VIAL IV ONE (10:46)
--- NOTE | 2016-10-11 11:00 | P.PN ---
Addendum entered and electronically signed by Jose Mace RNFA 10/11/16 12: 37: Mediastinal chest tube removed without incident, sutures secured in place. Folded 4 x 4 gauze to cover and secured with tape. Original Note: <Jose Mace - Last Filed: 10/11/16 10:51> Progress Note - Text CV Surgery Nursing Principal diagnosis: Non-STEMI. Double vessel coronary artery disease. History of previous pulmonary embolism with evidence of thrombosed superficial greater saphenous veins bilaterally, chronic. Hypertension. Hyperlipidemia. Preserved left ventricular function. POD #2 total arterial non-aortic arch triple off-pump coronary artery bypass grafting using the skeletonized in situ left internal mammary artery to the left anterior descending artery, skeletonized right internal mammary artery as a free graft off the left internal mammary artery to the first diagonal artery in a [id number] fashion, then to the first obtuse marginal artery in an end to side fashion. Intraoperative transesophageal echocardiogram and epi-aortic scanning. Intraoperative graft flow measurement using the Medist[employer] system. Patient awake and alert, no distress noted, no specific complaints. He is sitting up to the bedside chair. 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 ] Pulse Rate [ 98 Pulse Oximetery ] Respiratory 24 19 19 Rate Blood Pressure 94/46 Blood Pressure 96/46 102/51 [Left Radial Artery Supine] Blood Pressure [Right Arm Sitting] O2 Sat by Pulse 98 100 98 Oximetry 10/10/16 10/10/16 10/10/16 11:00 11:01 11:09 Temperature 99.5 F Pulse Rate 88 87 87 Pulse Rate [ Bilateral Radial] Pulse Rate [ 95 Dental Laboratory Technology Teacher ] Pulse Rate [ Pulse Oximetery ] Respiratory 17 Rate Blood Pressure 96/47 Blood Pressure 123/52 [Left Radial Artery Supine] Blood Pressure 110/53 [Right Arm Sitting] O2 Sat by Pulse 100 Oximetry 10/10/16 10/10/16 10/10/16 12:00 13:00 14:00 Temperature 99.5 F 99.3 F Pulse Rate 88 86 82 Pulse Rate [ 86 Bilateral Radial] Pulse Rate [ 87 87 78 Dental Laboratory Technology Teacher ] Pulse Rate [ 98 Pulse Oximetery ] Respiratory 22 26 H 23 Rate Blood Pressure 113/54 94/53 103/57 Blood Pressure 102/48 93/45 [Left Radial Artery Supine] Blood Pressure 107/50 94/42 [Right Arm Sitting] O2 Sat by Pulse 99 97 99 Oximetry 10/10/16 10/10/16 10/10/16 15:00 15:38 15:50 Temperature Pulse Rate 87 81 84 Pulse Rate [ Bilateral Radial] Pulse Rate [ Dental Laboratory Technology Teacher ] Pulse Rate [ Pulse Oximetery ] Respiratory 29 H Rate Blood Pressure 86/48 Blood Pressure [Left Radial Artery Supine] Blood Pressure [Right Arm Sitting] O2 Sat by Pulse 99 Oximetry 10/10/16 10/10/16 10/10/16 16:00 17:00 18:00 Temperature Pulse Rate 83 81 84 Pulse Rate [ 86 Bilateral Radial] Pulse Rate [ 78 Dental Laboratory Technology Teacher ] Pulse Rate [ 98 Pulse Oximetery ] Respiratory 22 26 H 22 Rate Blood Pressure 92/59 100/55 100/55 Blood Pressure [Left Radial Artery Supine] Blood Pressure [Right Arm Sitting] O2 Sat by Pulse 90 L 96 97 Oximetry 10/10/16 10/10/16 10/10/16 19:00 19:34 19:51 Temperature Pulse Rate 84 88 94 Pulse Rate [ Bilateral Radial] Pulse Rate [ Dental Laboratory Technology Teacher ] Pulse Rate [ Pulse Oximetery ] Respiratory 28 H Rate Blood Pressure Blood Pressure [Left Radial Artery Supine] Blood Pressure [Right Arm Sitting] O2 Sat by Pulse 96 Oximetry 10/10/16 10/10/16 10/10/16 20:00 21:00 22:00 Temperature 98.3 F Pulse Rate 90 89 89 Pulse Rate [ Bilateral Radial] Pulse Rate [ Dental Laboratory Technology Teacher ] Pulse Rate [ 98 Pulse Oximetery ] Respiratory 19 23 21 Rate Blood Pressure Blood Pressure [Left Radial Artery Supine] Blood Pressure [Right Arm Sitting] O2 Sat by Pulse 99 100 93 L Oximetry 10/10/16 10/10/16 10/11/16 23:00 23:28 00:00 Temperature Pulse Rate 79 83 86 Pulse Rate [ Bilateral Radial] Pulse Rate [ Dental Laboratory Technology Teacher ] Pulse Rate [ 98 Pulse Oximetery ] Respiratory 22 18 21 Rate Blood Pressure Blood Pressure [Left Radial Artery Supine] Blood Pressure [Right Arm Sitting] O2 Sat by Pulse 95 95 96 Oximetry 10/11/16 10/11/16 10/11/16 01:00 02:00 03:00 Temperature Pulse Rate 84 79 74 Pulse Rate [ Bilateral Radial] Pulse Rate [ Dental Laboratory Technology Teacher ] Pulse Rate [ Pulse Oximetery ] Respiratory 22 19 21 Rate Blood Pressure Blood Pressure [Left Radial Artery Supine] Blood Pressure [Right Arm Sitting] O2 Sat by Pulse 95 95 97 Oximetry 10/11/16 10/11/16 10/11/16 04:00 05:00 06:00 Temperature 99.5 F Pulse Rate 82 80 79 Pulse Rate [ Bilateral Radial] Pulse Rate [ Dental Laboratory Technology Teacher ] Pulse Rate [ 98 Pulse Oximetery ] Respiratory 22 21 21 Rate Blood Pressure Blood Pressure [Left Radial Artery Supine] Blood Pressure [Right Arm Sitting] O2 Sat by Pulse 97 96 96 Oximetry 10/11/16 10/11/16 07:00 08:43 Temperature Pulse Rate 82 86 Pulse Rate [ Bilateral Radial] Pulse Rate [ Dental Laboratory Technology Teacher ] Pulse Rate [ Pulse Oximetery ] Respiratory 19 Rate Blood Pressure Blood Pressure [Left Radial Artery Supine] Blood Pressure [Right Arm Sitting] O2 Sat by Pulse 95 100 Oximetry ABP, PAP, CO, CI - Last 8 Hours Arterial Blood Pressure 108/50 Arterial Blood Pressure 105/51 Arterial Blood Pressure 111/48 Arterial Blood Pressure 112/51 Arterial Blood Pressure 113/52 Arterial Blood Pressure 117/55 Labs: Short CBC 10/11/16 Range/Units 04:19 WBC 8.5 (3.8-10.6) k/uL Hgb 10.8 L (13.0-17.5) gm/dL Hct 30.8 L (39.0-53.0) % Plt Count 118 L (150-450) k/uL Neutrophils # 6.8 (1.3-7.7) k/uL BMP 10/11/16 04:19 Sodium 138 Potassium 3.8 Chloride 105 Carbon Dioxide 25 BUN 17 Creatinine 0.80 Glucose 113 H Calcium 8.4 Liver Function 10/11/16 Range/Units 04:19 Total Bilirubin 0.9 (0.2-1.3) mg/dL AST 66 H (17-59) U/L ALT 39 (21-72) U/L Alkaline Phosphatase 35 L (38-126) U/L Albumin 3.3 L (3.5-5.0) g/dL ABG ABG pH 7.36 (7.35-7.45) 10/09/16 22:15 ABG pCO2 41 mmHg (35-45) 10/09/16 22:15 ABG pO2 73 mmHg (83-108) L 10/09/16 22:15 ABG O2 Saturation 94.0 % (94-97) 10/09/16 22:15 PT/INR, D-dimer PT 11.8 sec (9.0-12.0) 10/11/16 04:19 INR 1.2 (<1.1) 10/11/16 04:19 IV Fluids: Lactated Ringer's at 50 mL per hour. CVP: 3 Lungs: Essentially clear throughout, few scattered crackles to his bilateral bases. Respirations are symmetrical and unlabored. O2 sat: 100% on 2 L nasal cannula. I/S: 1000 mL, reviewed with the patient important of using his incentive spirometry every hour while awake. Patient did give a good return demonstration on his incentive spirometry. Heart: S1S2, regular rhythm and rate, negative for S3, gallop or murmur. Bedside telemetry showing normal sinus rhythm heart rate 85. Sternum stable, chest incision clean with dressing clean and dry. Heart hugger in place, patient demonstrated proper use of his heart hugger. Knee-high NABEEL hose and sequential compression devices in place to his bilateral lower extremities. Abdomen: Soft, Positive bowel sounds present in all 4 quadrants, patient denies passing any flatus this a.m. Denies complaints of nausea. CBGs: 112-130 mg/dL in the last 24 hours. U/O: Adequate, Chandler catheter for accurate I&O. 830 mL output in the last 8 hours. Chest Tubes: Mediastinal chest tube without air leak, remains to continuous low wall suction. Draining thin serosanguineous drainage. 70 mL output in the last 8 hours, 230 mL output in the last 24 hours. Left pleural chest tube without air leak, remains to continuous low wall suction. Draining thin serosanguineous drainage. 110 mL output in the last 8 hours, 300 mL output in the last 24 hours. Right pleural chest tube without air leak, remains to continuous low wall suction. Draining thin serosanguineous drainage. 90 mL output in the last 8 hours, 220 mL output in the last 24 hours. 24 hr Total: Intake & Output 10/09/16 10/10/16 10/11/16 10/12/16 06:59 06:59 06:59 06:59 Intake Total 1644 2252.700 1741.316 50 Output Total 9337 4594 3895 220 Balance 44 -1033.300 -711.684 -170 Weight 87.9 kg 93.2 kg 91.7 kg Active Medications Hydrocodone Bitart/Acetaminophen ([place] 5-325) 2 each PO Q4HR PRN PRN Reason: Severe Pain Last Admin: 10/11/16 07:55 Dose: 2 each Hydrocodone Bitart/Acetaminophen ([place] 5-325) 1 each PO Q4HR PRN PRN Reason: Moderate Pain Last Admin: 10/11/16 02:49 Dose: 1 each Albuterol/Ipratropium (Duoneb 0.5 Mg-3 Mg/3 Ml Soln) 3 ml INHALATION RT-Q2H PRN PRN Reason: Shortness Of Breath Or Wheezing Albuterol/Ipratropium (Duoneb 0.5 Mg-3 Mg/3 Ml Soln) 3 ml INHALATION RT-QID [facility] Last Admin: 10/11/16 08:41 Dose: 3 ml Aspirin (Aspirin) 325 mg PO DAILY [facility] Last Admin: 10/11/16 08:00 Dose: 325 mg Atorvastatin Calcium (Lipitor) 40 mg PO DAILY [facility] Last Admin: 10/11/16 08:00 Dose: 40 mg Benzocaine/Menthol (Cepacol Lozenge) 1 each MUCOUS MEM Q2H PRN PRN Reason: Sore Throat Bisacodyl (Dulcolax) 10 mg RECTAL DAILY PRN PRN Reason: Constipation Clopidogrel Bisulfate (Plavix) 75 mg PO DAILY [facility] Last Admin: 10/11/16 08:01 Dose: 75 mg Heparin Sodium (Porcine) (Heparin) 5,000 unit SQ Q8HR [facility] Last Admin: 10/11/16 08:00 Dose: 5,000 unit Phenylephrine HCl 40 mg/ (Sodium Chloride) 254 mls @ 0 mls/hr IV .Q0M PRN; Protocol; Per Protocol PRN Reason: OPEN HEART Albumin Human 250 ml/ IV (Solution) 250 mls @ 250 mls/hr IVPB Q1HR PRN PRN Reason: For Volume Stop: 10/11/16 14:04 Last Admin: 10/10/16 08:28 Dose: 250 mls/hr Clevidipine 25 mg/ IV Solution 50 mls @ 2 mls/hr IV .Q24H [facility]; 1 MG/HR PRN Reason: Protocol Last Admin: 10/10/16 14:39 Dose: Not Given Lactated Ringer's (Lactated Ringers) 1,000 mls @ 20 mls/hr IV .Q24H [facility] Last Admin: 10/10/16 14:40 Dose: Not Given Insulin Human Lispro (Humalog) 0 unit SQ ACHS [facility] PRN Reason: Protocol Ketorolac Tromethamine (Toradol) 15 mg IVP Q6HR [facility] Stop: 10/14/16 07:31 Last Admin: 10/11/16 07:57 Dose: 15 mg Magnesium Hydroxide (Milk Of Magnesia) 2,400 mg PO BID PRN PRN Reason: Constipation Metoclopramide HCl (Reglan) 10 mg IVP Q4H PRN PRN Reason: Nausea And Vomiting Metoprolol Tartrate (Lopressor) 12.5 mg PO BID [facility] Last Admin: 10/11/16 08:01 Dose: 12.5 mg Miscellaneous Information (Magnesium Per Protocol) 1 each MISCELLANE DAILY PRN ; Protocol PRN Reason: Per Protocol Miscellaneous Information (Phosphorus Per Protocol) 1 each MISCELLANE DAILY PRN ; Protocol PRN Reason: Per Protocol Miscellaneous Information (Potassium Per Protocol) 1 each MISCELLANE DAILY PRN ; Protocol PRN Reason: Per Protocol Mupirocin (Bactroban Oint) 1 applic NASAL BID [facility] Stop: 10/12/16 21:01 Last Admin: 10/10/16 20:36 Dose: 1 applic Ondansetron HCl (Zofran) 4 mg IVP Q6HR PRN PRN Reason: Nausea And Vomiting Last Admin: 10/11/16 03:20 Dose: 4 mg Pantoprazole Sodium (Protonix) 40 mg PO AC-BRKFST [facility] Last Admin: 10/11/16 08:00 Dose: 40 mg Senna/Docusate Sodium (Senokot-S) 2 each PO HS [facility] Last Admin: 10/10/16 20:36 Dose: 2 each Plan: 1. Continue aspirin, statin, beta hua, Plavix. Lasix 20 mg IV 1 today. 2. We will remove his mediastinal chest tube and his left and right pleural chest tube will remain intact today to low continuous wall suction. 3. Increase activity, ambulate in room. Physical therapy to follow. 4. Incentive spirometry encouraged every hour while awake. 5. Discontinue Cordis, arterial line and Chandler catheter. 6. GI/DVT prophylaxis. 7. He will be transferred to [address] [place] [id number], for further monitoring and rehabilitation. 8. More recommendations as patient progresses. <Jacky Mcdonough - Last Filed: 10/11/16 14:27> Progress Note - Text The patient was seen and examined. I agree with the above assessment and plan. Overall he appears to be doing well. His mediastinal chest tube was removed this morning. We will continue beta hua, aspirin, and Plavix. His given Lasix this morning. He is awaiting transfer to [facility] this afternoon.
[2016-10-11 11:36] LABS: Glucose,Whole Blood 114 mg/dL (75-99)
--- NOTE | 2016-10-11 11:43 | P.PN ---
Subjective Principal diagnosis: Status post CABG, postoperative day #2 71-year-old white male with history of hypertension, remote history of pulmonary embolism following hernia surgery, patient was on anticoagulation therapy for one year. At that time he was taken care of by Dr. Rehman. Since then, the patient did not have any history to suggest any thromboembolic disease. Patient presented with acute onset of chest pain while shopping at the [employer] on Thursday, upon presentation to the ER, patient was found to have positive troponin and EKG changes. Cardiac catheterization showed significant LAD and circumflex disease. Patient was seen by surgery on consultation, and he is scheduled to undergo surgery sometime later this week. Pulmonary-ernandez patient has no history of COPD, he is a nonsmoker, physically active, can even run a mile before this episode of chest pain. No cough no wheezing no shortness of breath. Patient did have remote history of pulmonary embolism about 20 years ago provoked by hernia surgery. Presently the patient is asymptomatic, no pulmonary symptoms, no headaches no blurred vision no dizziness. No nausea no vomiting no abdominal pain no melena no hematemesis is no dysuria frequency or urgency. Chest x-ray questioned a small tiny nodule, I reviewed the chest x-ray, the finding is not significant, I believe this is more of a summation shadow or could be a nipple shadow, but patient this can be addressed with x-rays with nipple markers, and down the line if the nodule is true one can consider CT of the chest, but at this point I don't see the value of a CT of the chest.index of suspicion for malignancy is rather low. On 10/07/2016, patient continues to do well, no cough no wheezing no shortness of breath, I did recommend repeat chest x-ray with nipple markers on the left side , and if necessary, may order a CT of the chest without contrast. However, presence of a tiny nodule should not delay any plans for anticipated surgery for CABG. A shunt has no pulmonary symptoms whatsoever. Labs from today were all reviewed including a normal CBC and normal basic metabolic profile. Heparin is therapeutic with a PTT of 45.9. On 10/08/2016, patient continues to do well, asymptomatic, no cough no wheezing no shortness of breath, reviewed the results of his chest x-ray done today, no worrisome findings to speak of. patient was clearly ready for surgery and I believe is scheduled tomorow. Patient is seen again today 10/09/2016 in follow-up. He is status post coronary artery bypass grafting utilizing the WATT to the LAD and sequential KERA off the WATT to the diagonal and OM 1. He is seen immediately upon return in the intensive care unit. He is currently on the ventilator with SIMV of 12 tidal volume 500 FiO2 100% and a PEEP of 5. ABGs are pending. There are [address] to the right, left and mediastinum. His current drips include insulin at 1.5 units per hour, nitroglycerin at 5 mg/m, milrinone at 0.25 mcg/kg/m, propofol at 45 mcg/m. Cleviprex at 1 mg per hour. He has a lactated Ringer's at maintenance. White count 13.0, hemoglobin 10.4, creatinine 0.70. Pulmonary artery pressure 49/28, CVP 18. He is maintaining good O2 saturations in the high 90s to 100%. On 10/10/2016, patient was extubated last night uneventfully, required to be placed on Precedex instead of propofol drip because of extreme agitation while on mechanical ventilation. At one point I had to give the patient 10 mg of Nimbex to be able to ventilate improperly and this was shortly after he arrived to the ICU last night. Overnight the patient did quite well, Precedex seems to work much better than propofol for this patient, and he was extubated uneventfully. This morning the patient seems to be doing well, asymptomatic, no cough no wheezing no shortness of breath. Chest x-ray is suggestive of mild congestive changes CBC is relatively unremarkable. Basic metabolic profile is relatively normal. On 10/11/2016, patient is on nasal cannula, doing quite well, no cough no wheezing no shortness of breath. Chest x-ray is showing definite improvement compared to the chest x-ray yesterday, improved aeration and improved volume status. CBC was reviewed basic metabolic profile was also reviewed. Objective - Vital Signs Vital signs: Vital Signs Temp 98 F 10/11/16 08:00 Pulse 82 10/11/16 11:34 Resp 17 10/11/16 11:00 BP 117/75 10/11/16 11:00 Pulse Ox 100 10/11/16 11:00 Intake & Output 10/10/16 10/11/1617 18:59 06:59 18:59 Intake Total 1119.858 621.458 350 Output Total 1128 1325 240 Balance -8.142 -703.542 110 Weight 93.2 kg 91.7 kg Intake: IV 30 Cardiac Output 30 Intake, IV Titration 1089.858 601.458 250 Amount ACETAMINOPHEN IV (For NPO 100 ) 1,000 mg In Empty Bag 1 bag @ 400 mls/hr IVPB Q6HR [facility] Rx#:[id number] Albumin Human 5% 250 ml 250 In Empty Bag 1 bag @ 250 mls/hr IVPB Q1HR PRN Rx#: [id number] Insulin Regular 100 unit 7.983 1.458 In Sodium Chloride 0.9% 100 ml @ Titrate IV .Q0M PRN Rx#:[id number] Lactated Ringers 1,000 ml 600 600 250 @ 20 mls/hr IV .Q24H [facility] Rx#:[id number] Milrinone-D5w Pmx 20 mg 6.1 In Dextrose/Water 1 100ml .bag @ Per Protocol IV . Q0M [facility] Rx#:[id number] Nitroglycerin-D5w Pmx 50 25.775 mg In Dextrose/Water 1 250ml.bag @ 5 MCG/MIN 1.5 mls/hr IV .Q24H [facility] Rx#: [id number] ceFAZolin 2 gm In Sodium 100 Chloride 0.9% 100 ml @ 100 mls/hr IVPB Q8HR [facility] Rx#:[id number] Oral 20 100 Output: Chest Tube Drainage 370 380 80 Chest Tube Left Anterior 140 170 40 Chest Chest Tube Right Anterior 110 130 20 Chest Mediastinal 120 80 20 Urine 758 945 160 Other: Voiding Method Indwelling Catheter Indwelling Catheter Indwelling Catheter ABP, PAP, CO, CI - Last Documented Arterial Blood Pressure 131/53 Pulmonary Artery Pressure 24/15 Cardiac Output 8.5 Cardiac Index 4.2 - Exam Physical Exam: Revealed a 71-year-old white male in no distress. On nasal cannula HEENT:[Neck is supple.] [No neck masses.] [No thyromegaly.] [No JVD.] Chest: [Minimal crackles at the bases bilaterally, no rhonchi, no wheezes.] Cardiac Exam: [Normal S1 and S2, no S3 gallop, no murmur.] Abdomen: [Soft, nontender, no megaly, no rebound, no guarding, normal bowel sounds.] Extremities: [No clubbing, no edema, no cyanosis.] Neurological Exam: [No focal neurologic deficit.] - Labs CBC & Chem 7: 10/11/16 04:19 10/11/16 04:19 Labs: Abnormal Lab Results - Last 24 Hours (Table) 10/10/16 10/10/16 10/10/16 Range/Units 12:27 13:37 15:08 RBC (4.30-5.90) m/uL Hgb (13.0-17.5) gm/dL Hct (39.0-53.0) % Plt Count (150-450) k/uL Lymphocytes # (1.0-4.8) k/uL Glucose (74-99) mg/dL POC Glucose (mg/dL) 124 H 116 H 130 H (75-99) mg/dL AST (17-59) U/L Alkaline Phosphatase (38-126) U/L Total Protein (6.3-8.2) g/dL Albumin (3.5-5.0) g/dL 10/10/16 10/10/16 10/10/16 Range/Units 17:28 18:27 20:00 RBC (4.30-5.90) m/uL Hgb (13.0-17.5) gm/dL Hct (39.0-53.0) % Plt Count (150-450) k/uL Lymphocytes # (1.0-4.8) k/uL Glucose (74-99) mg/dL POC Glucose (mg/dL) 108 H 112 H 129 H (75-99) mg/dL AST (17-59) U/L Alkaline Phosphatase (38-126) U/L Total Protein (6.3-8.2) g/dL Albumin (3.5-5.0) g/dL 10/10/16 10/10/16 10/11/16 Range/Units 22:10 23:05 00:17 RBC (4.30-5.90) m/uL Hgb (13.0-17.5) gm/dL Hct (39.0-53.0) % Plt Count (150-450) k/uL Lymphocytes # (1.0-4.8) k/uL Glucose (74-99) mg/dL POC Glucose (mg/dL) 121 H 119 H 106 H (75-99) mg/dL AST (17-59) U/L Alkaline Phosphatase (38-126) U/L Total Protein (6.3-8.2) g/dL Albumin (3.5-5.0) g/dL 10/11/16 10/11/16 10/11/16 Range/Units 01:26 02:24 04:17 RBC (4.30-5.90) m/uL Hgb (13.0-17.5) gm/dL Hct (39.0-53.0) % Plt Count (150-450) k/uL Lymphocytes # (1.0-4.8) k/uL Glucose (74-99) mg/dL POC Glucose (mg/dL) 115 H 116 H 116 H (75-99) mg/dL AST (17-59) U/L Alkaline Phosphatase (38-126) U/L Total Protein (6.3-8.2) g/dL Albumin (3.5-5.0) g/dL 10/11/16 10/11/16 10/11/16 Range/Units 04:19 04:19 06:19 RBC 3.39 L (4.30-5.90) m/uL Hgb 10.8 L (13.0-17.5) gm/dL Hct 30.8 L (39.0-53.0) % Plt Count 118 L (150-450) k/uL Lymphocytes # 0.9 L (1.0-4.8) k/uL Glucose 113 H (74-99) mg/dL POC Glucose (mg/dL) 112 H (75-99) mg/dL AST 66 H (17-59) U/L Alkaline Phosphatase 35 L (38-126) U/L Total Protein 5.4 L (6.3-8.2) g/dL Albumin 3.3 L (3.5-5.0) g/dL 10/11/16 Range/Units 11:35 RBC (4.30-5.90) m/uL Hgb (13.0-17.5) gm/dL Hct (39.0-53.0) % Plt Count (150-450) k/uL Lymphocytes # (1.0-4.8) k/uL Glucose (74-99) mg/dL POC Glucose (mg/dL) 114 H (75-99) mg/dL AST (17-59) U/L Alkaline Phosphatase (38-126) U/L Total Protein (6.3-8.2) g/dL Albumin (3.5-5.0) g/dL Assessment and Plan Plan: #1 Non-ST elevation myocardial infarction. #2 Coronary artery disease status post coronary artery bypass grafting utilizing a WATT to the LAD, WATT to the KERA to the diagonal and OM 1. Postoperative day #2 #3 remote history of pulmonary embolism following hernia surgery about 20 years ago. #4 Hypertension, history of. Recommendation: Continue present treatment plan including incentive spirometry, deep cough and deep breathing, bronchodilators, and early ambulation. Time with Patient: Less than 30
[2016-10-11] MEDS: INSULIN LISPRO (humaLOG) 300 UNIT/3 ML VIAL SQ SCH ×3 (13:51→23:44)
--- NOTE | 2016-10-11 15:55 | P.PN ---
Subjective 71-year-old gentleman, currently postoperative day 2 WATT to the LAD and KERA to RCA is seen at bedside. Denies having any headaches, blurry vision, nausea, vomiting. Mediastinal tubes removed today. Continues to have 2 chest tubes. States to have a cough nonproductive in nature Is able to ambulate without much difficulty denies having any chest pain nausea vomiting or diarrhea. Objective - Vital Signs Vital signs: Vital Signs Temp 98 F 10/11/16 08:00 Pulse 88 10/11/16 15:51 Resp 24 10/11/16 14:00 BP 106/62 10/11/16 14:00 Pulse Ox 98 10/11/16 14:00 Intake & Output 10/10/16 10/11/16 10/11/16 18:59 06:59 18:59 Intake Total 1119.858 621.458 470 Output Total 1128 1325 905 Balance -8.142 -703.542 -435 Weight 93.2 kg 91.7 kg Intake: IV 30 Cardiac Output 30 Intake, IV Titration 1089.858 601.458 250 Amount ACETAMINOPHEN IV (For NPO 100 ) 1,000 mg In Empty Bag 1 bag @ 400 mls/hr IVPB Q6HR [facility] Rx#:[id number] Albumin Human 5% 250 ml 250 In Empty Bag 1 bag @ 250 mls/hr IVPB Q1HR PRN Rx#: [id number] Insulin Regular 100 unit 7.983 1.458 In Sodium Chloride 0.9% 100 ml @ Titrate IV .Q0M PRN Rx#:[id number] Lactated Ringers 1,000 ml 600 600 250 @ 20 mls/hr IV .Q24H [facility] Rx#:[id number] Milrinone-D5w Pmx 20 mg 6.1 In Dextrose/Water 1 100ml .bag @ Per Protocol IV . Q0M [facility] Rx#:[id number] Nitroglycerin-D5w Pmx 50 25.775 mg In Dextrose/Water 1 250ml.bag @ 5 MCG/MIN 1.5 mls/hr IV .Q24H [facility] Rx#: [id number] ceFAZolin 2 gm In Sodium 100 Chloride 0.9% 100 ml @ 100 mls/hr IVPB Q8HR [facility] Rx#:[id number] Oral 20 220 Output: Chest Tube Drainage 370 380 120 Chest Tube Left Anterior 140 170 60 Chest Chest Tube Right Anterior 110 130 40 Chest Mediastinal 120 80 20 Urine 758 845 785 Other: Voiding Method Indwelling Catheter Indwelling Catheter Indwelling Catheter # Voids 2 ABP, PAP, CO, CI - Last Documented Arterial Blood Pressure 131/53 Pulmonary Artery Pressure 24/15 Cardiac Output 8.5 Cardiac Index 4.2 - Exam In appearance alert oriented 3 does not appear to be in distress Currently on 2 L supplement oxygen Heart S1-S2 heard no murmurs appreciated incision site appears to have a dressing Pleural chest tube noted Lungs diminished breath sounds no rhonchi wheezing or crackles Abdomen is soft nontender no organomegaly Lower x-ray is no significant edema noted. - Labs CBC & Chem 7: 10/11/16 04:19 10/11/16 14:49 Labs: Abnormal Lab Results - Last 24 Hours (Table) 10/10/16 10/10/16 10/10/16 Range/Units 17:28 18:27 20:00 RBC (4.30-5.90) m/uL Hgb (13.0-17.5) gm/dL Hct (39.0-53.0) % Plt Count (150-450) k/uL Lymphocytes # (1.0-4.8) k/uL Glucose (74-99) mg/dL POC Glucose (mg/dL) 108 H 112 H 129 H (75-99) mg/dL AST (17-59) U/L Alkaline Phosphatase (38-126) U/L Total Protein (6.3-8.2) g/dL Albumin (3.5-5.0) g/dL 10/10/16 10/10/16 10/11/16 Range/Units 22:10 23:05 00:17 RBC (4.30-5.90) m/uL Hgb (13.0-17.5) gm/dL Hct (39.0-53.0) % Plt Count (150-450) k/uL Lymphocytes # (1.0-4.8) k/uL Glucose (74-99) mg/dL POC Glucose (mg/dL) 121 H 119 H 106 H (75-99) mg/dL AST (17-59) U/L Alkaline Phosphatase (38-126) U/L Total Protein (6.3-8.2) g/dL Albumin (3.5-5.0) g/dL 10/11/16 10/11/16 10/11/16 Range/Units 01:26 02:24 04:17 RBC (4.30-5.90) m/uL Hgb (13.0-17.5) gm/dL Hct (39.0-53.0) % Plt Count (150-450) k/uL Lymphocytes # (1.0-4.8) k/uL Glucose (74-99) mg/dL POC Glucose (mg/dL) 115 H 116 H 116 H (75-99) mg/dL AST (17-59) U/L Alkaline Phosphatase (38-126) U/L Total Protein (6.3-8.2) g/dL Albumin (3.5-5.0) g/dL 10/11/16 10/11/16 10/11/16 Range/Units 04:19 04:19 06:19 RBC 3.39 L (4.30-5.90) m/uL Hgb 10.8 L (13.0-17.5) gm/dL Hct 30.8 L (39.0-53.0) % Plt Count 118 L (150-450) k/uL Lymphocytes # 0.9 L (1.0-4.8) k/uL Glucose 113 H (74-99) mg/dL POC Glucose (mg/dL) 112 H (75-99) mg/dL AST 66 H (17-59) U/L Alkaline Phosphatase 35 L (38-126) U/L Total Protein 5.4 L (6.3-8.2) g/dL Albumin 3.3 L (3.5-5.0) g/dL 10/11/16 Range/Units 11:35 RBC (4.30-5.90) m/uL Hgb (13.0-17.5) gm/dL Hct (39.0-53.0) % Plt Count (150-450) k/uL Lymphocytes # (1.0-4.8) k/uL Glucose (74-99) mg/dL POC Glucose (mg/dL) 114 H (75-99) mg/dL AST (17-59) U/L Alkaline Phosphatase (38-126) U/L Total Protein (6.3-8.2) g/dL Albumin (3.5-5.0) g/dL Assessment and Plan Plan: #1 non-Q-wave myocardial infarction , status post CABG 2 postop day 2 #2 history of pulmonary embolism that appears to be provoked 3 history of hypertension #4 left lower lobe pulmonary nodule Plan continue with current medications. Glucose levels are appropriate. IS is recommended Encourage activity chest tube management per cardiothoracic surgery DVT prophylaxis
[2016-10-11 16:28] LABS: Glucose,Whole Blood 98 mg/dL (75-99)
[2016-10-11] MEDS: SENNOSIDES-DOCUSATE SODIUM 1 EACH TAB PO SCH (20:10)
[2016-10-11] MEDS: METOPROLOL TARTRATE 25 MG TAB PO SCH (20:11)
[2016-10-11 21:08] LABS: Glucose,Whole Blood 126 mg/dL (75-99)
[2016-10-12] MEDS: KETOROLAC 30 MG/ML 1 ML VIAL IVP SCH ×4 (01:01→18:17)
[2016-10-12] MEDS: HYDROcodone/APAP 5-325MG 1 EACH TAB PO PRN ×5 (03:49→20:32)
[2016-10-12 06:28] LABS: Glucose,Whole Blood 103 mg/dL (75-99)
[2016-10-12] MEDS: PANTOPRAZOLE 40 MG TABLET PO SCH (06:34)
[2016-10-12] MEDS: INSULIN LISPRO (humaLOG) 300 UNIT/3 ML VIAL SQ SCH ×4 (06:34→23:59)
[2016-10-12 06:53] LABS: ABG PH 7.42 (7.35-7.45)
[2016-10-12 06:53] LABS: ABG Base Excess -0.5 mmol/L; ABG HCO3 22 mmol/L (21-25); ABG Oxygen Saturation 99.6 % (94-97); ABG PCO2 30 mmHg (35-45); ABG PH 7.47 (7.35-7.45); ABG PO2 171 mmHg (83-108); ABG TCO2 23 mmol/L (19-24)
[2016-10-12 06:54] LABS: ABG Base Excess -3.1 mmol/L; ABG HCO3 20 mmol/L (21-25); ABG Oxygen Saturation 97.6 % (94-97); ABG PCO2 32 mmHg (35-45); ABG PO2 95 mmHg (83-108); ABG TCO2 21 mmol/L (19-24)
[2016-10-12 06:55] LABS: ABG Base Excess -4.1 mmol/L; ABG HCO3 20 mmol/L (21-25); ABG Oxygen Saturation 94.7 % (94-97); ABG PCO2 36 mmHg (35-45); ABG PH 7.37 (7.35-7.45); ABG PO2 76 mmHg (83-108); ABG TCO2 21 mmol/L (19-24)
[2016-10-12 06:56] LABS: ABG Base Excess -4.1 mmol/L; ABG HCO3 20 mmol/L (21-25); ABG Oxygen Saturation 99.4 % (94-97); ABG PCO2 36 mmHg (35-45); ABG PH 7.37 (7.35-7.45); ABG PO2 165 mmHg (83-108); ABG TCO2 21 mmol/L (19-24)
[2016-10-12 06:57] LABS: ABG Base Excess -3.1 mmol/L; ABG HCO3 21 mmol/L (21-25); ABG Oxygen Saturation 97.1 % (94-97); ABG PCO2 38 mmHg (35-45); ABG PH 7.37 (7.35-7.45); ABG PO2 94 mmHg (83-108); ABG TCO2 22 mmol/L (19-24)
[2016-10-12 06:58] LABS: ABG Base Excess -4.1 mmol/L; ABG HCO3 21 mmol/L (21-25); ABG Oxygen Saturation 96.3 % (94-97); ABG PCO2 42 mmHg (35-45); ABG PH 7.32 (7.35-7.45); ABG PO2 91 mmHg (83-108); ABG TCO2 22 mmol/L (19-24)
[2016-10-12 07:19] LABS: Basophils % (A) 1 %; CH 31.3; CHCM 33.4; Eosinophils # (A) 0.2 k/uL (0-0.7); Eosinophils % (A) 3 %; HCT 32.1 % (39.0-53.0); HDW 2.38; HGB 10.5 gm/dL (13.0-17.5); Luc # (Auto) 0.16; Luc % (Auto) 3; Lymphocytes # (A) 1.3 k/uL (1.0-4.8); Lymphocytes % (A) 20 %; MCH 30.9 pg (25.0-35.0); MCHC 32.8 g/dL (31.0-37.0); MCV 94.1 fL (80.0-100.0); Mean Platelet Volume 7.9; Monocytes # (A) 0.4 k/uL (0-1.0); Monocytes % (A) 6 %; Neutrophils # (A) 4.5 k/uL (1.3-7.7); Neutrophils % (A) 68 %; RBC 3.41 m/uL (4.30-5.90); RDW 12.7 % (11.5-15.5); WBC 6.6 k/uL (3.8-10.6); WBC (Perox) 6.79
[2016-10-12] MEDS: IPRATROPIUM-ALBUTEROL 3 ML NEB INHALATION SCH ×5 (07:36→20:27)
[2016-10-12 07:37] LABS: ALT 37 U/L (21-72); AST 33 U/L (17-59); Alkaline Phosphatase 37 U/L (38-126); Anion Gap 8 mmol/L; Blood Urea Nitrogen 20 mg/dL (9-20); Calcium 8.4 mg/dL (8.4-10.2); Carbon Dioxide 26 mmol/L (22-30); Chloride 104 mmol/L (98-107); Glucose 101 mg/dL (74-99); Non-African American GFR(MDRD) >60 (>60 ml/min/1.73 sqM); Potassium 4.2 mmol/L (3.5-5.1); Sodium 138 mmol/L (137-145); Total Bilirubin 0.7 mg/dL (0.2-1.3); Total Protein 5.3 g/dL (6.3-8.2)
[2016-10-12] MEDS: ASPIRIN 325 MG TAB PO SCH (08:18)
[2016-10-12] MEDS: CLOPIDOGREL 75 MG TAB PO SCH (08:18)
[2016-10-12] MEDS: METOPROLOL TARTRATE 25 MG TAB PO SCH ×2 (08:19→20:39)
[2016-10-12] MEDS: ATORVASTATIN 40 MG TAB PO SCH (08:19)
[2016-10-12] MEDS: HEPARIN SODIUM,PORCINE 5,000 UNIT/ML 1 ML VIAL SQ SCH ×2 (08:21→17:26)
[2016-10-12] MEDS: MUPIROCIN 2% OINT 22 GM TUBE NASAL SCH ×2 (08:22→20:39)
--- NOTE | 2016-10-12 08:42 | XR ---
EXAMINATION TYPE: XR chest 1V portable DATE OF EXAM: 10/12/2016 7:26 AM COMPARISON: 10/11/2016 HISTORY: Post CABG. Chest pain. Thoracostomy tubes. TECHNIQUE: Single frontal view of the chest is obtained. FINDINGS: Bilateral thoracostomy tubes are overall unchanged in position given differences in lung v olumes. There is improved aeration of the lungs on the current examination. Postoperative changes of intact midline sternotomy wires and mediastinal clips are again evident. Scattered bibasilar atelecta sis is seen without focal consolidation. Central venous catheter sheath has been removed in the inter im. Resolved pulmonary vascular congestion. No sizable pneumothorax is seen. IMPRESSION: 1. Resolved pulmonary vascular congestion. 2. Improved lung volumes with minimal bibasilar subsegmental atelectasis. 3. Overall unchanged thoracostomy tubes and postsurgical changes of the chest.
--- NOTE | 2016-10-12 10:16 | P.PN ---
<Jose Mace Ban - Last Filed: 10/12/16 09:49> Progress Note - Text CV Surgery Nursing Principal diagnosis: Non-STEMI. Double vessel coronary artery disease. History of previous pulmonary embolism with evidence of thrombosed superficial greater saphenous veins bilaterally, chronic. Hypertension. Hyperlipidemia. Preserved left ventricular function. POD #3 total arterial non-aortic arch triple off-pump coronary artery bypass grafting using the skeletonized in situ left internal mammary artery to the left anterior descending artery, skeletonized right internal mammary artery as a free graft off the left internal mammary artery to the first diagonal artery in a [id number] fashion, then to the first obtuse marginal artery in an end to side fashion. Intraoperative transesophageal echocardiogram and epi-aortic scanning. Intraoperative graft flow measurement using the CrossTxstim system. Patient awake and alert, no distress noted, no specific complaints. He is sitting up to the bedside chair. Physical therapy at his bedside working with the patient. Patient's is at the bedside. Vital Signs: Afebrile Vital Signs - 24 hr 10/11/16 10/11/16 10/11/16 11:00 11:22 11:34 Temperature Pulse Rate 84 81 82 Pulse Rate [ Metal Furniture Polisher ] Pulse Rate [ Pulse Oximetery ] Respiratory 17 Rate Blood Pressure 117/75 Blood Pressure [Right Arm Sitting] O2 Sat by Pulse 100 Oximetry 10/11/16 10/11/16 10/11/16 12:00 13:00 14:00 Temperature Pulse Rate 79 89 91 Pulse Rate [ 78 Metal Furniture Polisher ] Pulse Rate [ 98 Pulse Oximetery ] Respiratory 24 22 24 Rate Blood Pressure 114/56 119/75 106/62 Blood Pressure [Right Arm Sitting] O2 Sat by Pulse 98 97 98 Oximetry 10/11/16 10/11/16 10/11/16 15:51 15:57 16:00 Temperature Pulse Rate 88 88 Pulse Rate [ Metal Furniture Polisher ] Pulse Rate [ 78 Pulse Oximetery ] Respiratory 18 Rate Blood Pressure Blood Pressure 109/55 [Right Arm Sitting] O2 Sat by Pulse 98 Oximetry 10/11/16 10/11/16 10/11/16 20:00 20:28 20:30 Temperature 98.1 F Pulse Rate 83 Pulse Rate [ Metal Furniture Polisher ] Pulse Rate [ 86 Pulse Oximetery ] Respiratory 18 Rate Blood Pressure Blood Pressure 112/56 [Right Arm Sitting] O2 Sat by Pulse 97 98 Oximetry 10/11/16 10/12/16 10/12/16 20:41 00:00 04:00 Temperature 97.5 F L 96.8 F L Pulse Rate 85 Pulse Rate [ Metal Furniture Polisher ] Pulse Rate [ 83 77 Pulse Oximetery ] Respiratory 18 18 Rate Blood Pressure Blood Pressure 109/56 125/64 [Right Arm Sitting] O2 Sat by Pulse 96 97 Oximetry 10/12/16 10/12/16 07:37 07:50 Temperature Pulse Rate 73 73 Pulse Rate [ Metal Furniture Polisher ] Pulse Rate [ Pulse Oximetery ] Respiratory 14 Rate Blood Pressure Blood Pressure [Right Arm Sitting] O2 Sat by Pulse 93 L Oximetry Labs: Short CBC 10/12/16 Range/Units 06:50 WBC 6.6 (3.8-10.6) k/uL Hgb 10.5 L (13.0-17.5) gm/dL Hct 32.1 L (39.0-53.0) % Plt Count 165 (150-450) k/uL Neutrophils # 4.5 (1.3-7.7) k/uL BMP 10/11/16 10/12/16 14:49 06:50 Sodium 138 Potassium 3.8 4.2 Chloride 104 Carbon Dioxide 26 BUN 20 Creatinine 0.80 Glucose 101 H Calcium 8.4 Liver Function 10/12/16 Range/Units 06:50 Total Bilirubin 0.7 (0.2-1.3) mg/dL AST 33 (17-59) U/L ALT 37 (21-72) U/L Alkaline Phosphatase 37 L (38-126) U/L Albumin 3.1 L (3.5-5.0) g/dL ABG ABG pH 7.36 (7.35-7.45) 10/09/16 22:15 ABG pCO2 41 mmHg (35-45) 10/09/16 22:15 ABG pO2 73 mmHg (83-108) L 10/09/16 22:15 ABG O2 Saturation 94.0 % (94-97) 10/09/16 22:15 PT/INR, D-dimer PT 11.8 sec (9.0-12.0) 10/11/16 04:19 INR 1.2 (<1.1) 10/11/16 04:19 Lungs: Essentially clear throughout, diminished bilateral bases. Respirations are symmetrical and unlabored. O2 sat: 93% on room air. I/S: 0548-2425 mL, reviewed with the patient important of using his incentive spirometry every hour while awake. Patient did give a good return demonstration on his incentive spirometry. Heart: S1S2, regular rhythm and rate, negative for S3, gallop or murmur. Remote telemetry showing normal sinus rhythm heart rate 81. Sternum stable, chest incision clean with dressing clean and dry. Knee-high NABEEL hose and sequential compression devices in place to bilateral lower extremity Yoel. Abdomen: Soft, Positive bowel sounds present in all 4 quadrants. CBGs: 98 126 mg/dL in the last 24 hours. U/O: Adequate Chest Tubes: Left pleural chest tube without air leak, remains to continuous low wall suction. Draining thin serosanguineous drainage. 40 mL output in the last 8 hours, 120 mL output in the last 24 hours. Right pleural chest tube without air leak, remains to continuous low wall suction. Draining thin serosanguineous drainage. 60 mL output in the last 8 hours, 160 mL output in the last 24 hours. 24 hr Total: Intake & Output 10/10/16 10/11/16 10/12/16 10/13/16 06:59 06:59 06:59 06:59 Intake Total 2252.700 1741.316 710 Output Total 3286 2493 1555 Balance -1033.300 -751.684 -845 Weight 93.2 kg 91.7 kg 93.8 kg Active Medications Hydrocodone Bitart/Acetaminophen (Lucama 5-325) 2 each PO Q4HR PRN PRN Reason: Severe Pain Last Admin: 10/12/16 08:20 Dose: 2 each Hydrocodone Bitart/Acetaminophen (Lucama 5-325) 1 each PO Q4HR PRN PRN Reason: Moderate Pain Last Admin: 10/11/16 02:49 Dose: 1 each Albuterol/Ipratropium (Duoneb 0.5 Mg-3 Mg/3 Ml Soln) 3 ml INHALATION RT-Q2H PRN PRN Reason: Shortness Of Breath Or Wheezing Albuterol/Ipratropium (Duoneb 0.5 Mg-3 Mg/3 Ml Soln) 3 ml INHALATION RT-QID [facility] Last Admin: 10/12/16 07:36 Dose: 3 ml Aspirin (Aspirin) 325 mg PO DAILY [facility] Last Admin: 10/12/16 08:18 Dose: 325 mg Atorvastatin Calcium (Lipitor) 40 mg PO DAILY [facility] Last Admin: 10/12/16 08:19 Dose: 40 mg Bisacodyl (Dulcolax) 10 mg RECTAL DAILY PRN PRN Reason: Constipation Clopidogrel Bisulfate (Plavix) 75 mg PO DAILY [facility] Last Admin: 10/12/16 08:18 Dose: 75 mg Heparin Sodium (Porcine) (Heparin) 5,000 unit SQ Q8HR [facility] Last Admin: 10/12/16 08:21 Dose: 5,000 unit Phenylephrine HCl 40 mg/ (Sodium Chloride) 254 mls @ 0 mls/hr IV .Q0M PRN; Protocol; Per Protocol PRN Reason: OPEN HEART Insulin Human Lispro (Humalog) 0 unit SQ ACHS [facility] PRN Reason: Protocol Last Admin: 10/12/16 06:34 Dose: Not Given Ketorolac Tromethamine (Toradol) 15 mg IVP Q6HR [facility] Stop: 10/14/16 07:31 Last Admin: 10/12/16 06:33 Dose: 15 mg Magnesium Hydroxide (Milk Of Magnesia) 2,400 mg PO BID PRN PRN Reason: Constipation Metoclopramide HCl (Reglan) 10 mg IVP Q4H PRN PRN Reason: Nausea And Vomiting Metoprolol Tartrate (Lopressor) 25 mg PO BID [facility] Last Admin: 10/12/16 08:19 Dose: 25 mg Miscellaneous Information (Magnesium Per Protocol) 1 each MISCELLANE DAILY PRN ; Protocol PRN Reason: Per Protocol Miscellaneous Information (Phosphorus Per Protocol) 1 each MISCELLANE DAILY PRN ; Protocol PRN Reason: Per Protocol Miscellaneous Information (Potassium Per Protocol) 1 each MISCELLANE DAILY PRN ; Protocol PRN Reason: Per Protocol Mupirocin (Bactroban Oint) 1 applic NASAL BID [facility] Stop: 10/12/16 21:01 Last Admin: 10/12/16 08:22 Dose: 1 applic Ondansetron HCl (Zofran) 4 mg IVP Q6HR PRN PRN Reason: Nausea And Vomiting Last Admin: 10/11/16 03:20 Dose: 4 mg Pantoprazole Sodium (Protonix) 40 mg PO -BRKFST [facility] Last Admin: 10/12/16 06:34 Dose: 40 mg Senna/Docusate Sodium (Senokot-S) 2 each PO HS [facility] Last Admin: 10/11/16 20:10 Dose: 2 each Plan: 1. Continue aspirin, statin, beta hua, Plavix. We will hold off on diuresis today. 2. We will remove his left and right pleural chest tube. He will have a follow -up two view chest x-ray in the a.m. 3. Increase activity, ambulate in room. Physical therapy to follow. 4. Incentive spirometry encouraged every hour while awake. 5. Discharge planning in place, possible discharge home tomorrow. 6. GI/DVT prophylaxis. 7. More recommendations as patient progresses. Left and right pleural chest tubes removed without incident, sutures secured in place. Chandler 4 x 4 dressing to cover and secured with tape. <Jacky Mcdonough - Last Filed: 10/12/16 16:01> Progress Note - Text The patient was seen and examined. I agree with the above assessment and plan. Overall Mr. Gregorio looks good. His chest tubes were removed without incident. He has been ambling without difficulty. His chest x-ray was reviewed and appears clear. He will be discharged home tomorrow.
--- NOTE | 2016-10-12 10:42 | P.PN ---
Subjective Principal diagnosis: Status post CABG, postoperative day # 3 71-year-old white male with history of hypertension, remote history of pulmonary embolism following hernia surgery, patient was on anticoagulation therapy for one year. At that time he was taken care of by Dr. Rehman. Since then, the patient did not have any history to suggest any thromboembolic disease. Patient presented with acute onset of chest pain while shopping at the [employer] on Thursday, upon presentation to the ER, patient was found to have positive troponin and EKG changes. Cardiac catheterization showed significant LAD and circumflex disease. Patient was seen by surgery on consultation, and he is scheduled to undergo surgery sometime later this week. Pulmonary-ernandez patient has no history of COPD, he is a nonsmoker, physically active, can even run a mile before this episode of chest pain. No cough no wheezing no shortness of breath. Patient did have remote history of pulmonary embolism about 20 years ago provoked by hernia surgery. Presently the patient is asymptomatic, no pulmonary symptoms, no headaches no blurred vision no dizziness. No nausea no vomiting no abdominal pain no melena no hematemesis is no dysuria frequency or urgency. Chest x-ray questioned a small tiny nodule, I reviewed the chest x-ray, the finding is not significant, I believe this is more of a summation shadow or could be a nipple shadow, but patient this can be addressed with x-rays with nipple markers, and down the line if the nodule is true one can consider CT of the chest, but at this point I don't see the value of a CT of the chest.index of suspicion for malignancy is rather low. On 10/07/2016, patient continues to do well, no cough no wheezing no shortness of breath, I did recommend repeat chest x-ray with nipple markers on the left side , and if necessary, may order a CT of the chest without contrast. However, presence of a tiny nodule should not delay any plans for anticipated surgery for CABG. A shunt has no pulmonary symptoms whatsoever. Labs from today were all reviewed including a normal CBC and normal basic metabolic profile. Heparin is therapeutic with a PTT of 45.9. On 10/08/2016, patient continues to do well, asymptomatic, no cough no wheezing no shortness of breath, reviewed the results of his chest x-ray done today, no worrisome findings to speak of. patient was clearly ready for surgery and I believe is scheduled tomorow. Patient is seen again today 10/09/2016 in follow-up. He is status post coronary artery bypass grafting utilizing the WATT to the LAD and sequential KERA off the WATT to the diagonal and OM 1. He is seen immediately upon return in the intensive care unit. He is currently on the ventilator with SIMV of 12 tidal volume 500 FiO2 100% and a PEEP of 5. ABGs are pending. There are [address] to the right, left and mediastinum. His current drips include insulin at 1.5 units per hour, nitroglycerin at 5 mg/m, milrinone at 0.25 mcg/kg/m, propofol at 45 mcg/m. Cleviprex at 1 mg per hour. He has a lactated Ringer's at maintenance. White count 13.0, hemoglobin 10.4, creatinine 0.70. Pulmonary artery pressure 49/28, CVP 18. He is maintaining good O2 saturations in the high 90s to 100%. On 10/10/2016, patient was extubated last night uneventfully, required to be placed on Precedex instead of propofol drip because of extreme agitation while on mechanical ventilation. At one point I had to give the patient 10 mg of Nimbex to be able to ventilate improperly and this was shortly after he arrived to the ICU last night. Overnight the patient did quite well, Precedex seems to work much better than propofol for this patient, and he was extubated uneventfully. This morning the patient seems to be doing well, asymptomatic, no cough no wheezing no shortness of breath. Chest x-ray is suggestive of mild congestive changes CBC is relatively unremarkable. Basic metabolic profile is relatively normal. On 10/11/2016, patient is on nasal cannula, doing quite well, no cough no wheezing no shortness of breath. Chest x-ray is showing definite improvement compared to the chest x-ray yesterday, improved aeration and improved volume status. CBC was reviewed basic metabolic profile was also reviewed. On 10/12/2016, patient continues to do well, relatively asymptomatic, chest tubes were removed earlier this morning. Patient feels much better, no cough no wheezing no shortness of breath, ambulating, and in no distress. Labs showed a hemoglobin of 10.5 and normal basic metabolic profile. Chest x-ray was also reviewed. Objective - Vital Signs Vital signs: Vital Signs Temp 96.8 F L 10/12/16 04:00 Pulse 92 10/12/16 08:00 Resp 18 10/12/16 08:00 BP 125/72 10/12/16 08:00 Pulse Ox 94 L 10/12/16 08:00 Intake & Output 10/11/16 10/12/16 10/12/16 18:59 06:59 18:59 Intake Total 710 360 Output Total 1055 500 300 Balance -345 -500 60 Weight 93.8 kg Intake: Intake, IV Titration 250 Amount Lactated Ringers 1,000 ml 250 @ 20 mls/hr IV .Q24H [facility] Rx#:[id number] Oral 460 360 Output: Chest Tube Drainage 120 200 Chest Tube Left Anterior 60 60 Chest Chest Tube Right Anterior 40 140 Chest Mediastinal 20 Urine 935 300 300 Other: Voiding Method Toilet Urinal Urinal Urinal # Voids 3 1 ABP, PAP, CO, CI - Last Documented Arterial Blood Pressure 131/53 Pulmonary Artery Pressure 24/15 Cardiac Output 8.5 Cardiac Index 4.2 - Exam Physical Exam: Revealed a 71-year-old white male in no distress. On room air HEENT:[Neck is supple.] [No neck masses.] [No thyromegaly.] [No JVD.] Chest: [Minimal crackles at the bases bilaterally, no rhonchi, no wheezes.] Cardiac Exam: [Normal S1 and S2, no S3 gallop, no murmur.] Abdomen: [Soft, nontender, no megaly, no rebound, no guarding, normal bowel sounds.] Extremities: [No clubbing, no edema, no cyanosis.] Neurological Exam: [No focal neurologic deficit.] - Labs CBC & Chem 7: 10/12/16 06:50 10/12/16 06:50 Labs: Abnormal Lab Results - Last 24 Hours (Table) 10/09/16 10/09/16 10/09/16 Range/Units 08:37 11:18 11:56 RBC (4.30-5.90) m/uL Hgb (13.0-17.5) gm/dL Hct (39.0-53.0) % ABG pH 7.47 H (7.35-7.45) ABG pCO2 30 L 32 L (35-45) mmHg ABG pO2 171 H 76 L (83-108) mmHg ABG HCO3 20 L 20 L (21-25) mmol/L ABG O2 Saturation 99.6 H 97.6 H (94-97) % ABG Hematocrit 32 L (34.0-46.0) % ABG Sodium (135-146) mmol/L Glucose (74-99) mg/dL POC Glucose (mg/dL) (75-99) mg/dL Alkaline Phosphatase (38-126) U/L Total Protein (6.3-8.2) g/dL Albumin (3.5-5.0) g/dL 10/09/16 10/09/16 10/09/16 Range/Units 12:17 12:50 13:33 RBC (4.30-5.90) m/uL Hgb (13.0-17.5) gm/dL Hct (39.0-53.0) % ABG pH 7.32 L (7.35-7.45) ABG pCO2 (35-45) mmHg ABG pO2 165 H (83-108) mmHg ABG HCO3 20 L (21-25) mmol/L ABG O2 Saturation 97.1 H 99.4 H (94-97) % ABG Hematocrit 31 L 30 L 31 L (34.0-46.0) % ABG Sodium 147 H (135-146) mmol/L Glucose (74-99) mg/dL POC Glucose (mg/dL) (75-99) mg/dL Alkaline Phosphatase (38-126) U/L Total Protein (6.3-8.2) g/dL Albumin (3.5-5.0) g/dL 10/11/16 10/11/16 10/12/16 Range/Units 11:35 20:40 06:04 RBC (4.30-5.90) m/uL Hgb (13.0-17.5) gm/dL Hct (39.0-53.0) % ABG pH (7.35-7.45) ABG pCO2 (35-45) mmHg ABG pO2 (83-108) mmHg ABG HCO3 (21-25) mmol/L ABG O2 Saturation (94-97) % ABG Hematocrit (34.0-46.0) % ABG Sodium (135-146) mmol/L Glucose (74-99) mg/dL POC Glucose (mg/dL) 114 H 126 H 103 H (75-99) mg/dL Alkaline Phosphatase (38-126) U/L Total Protein (6.3-8.2) g/dL Albumin (3.5-5.0) g/dL 10/12/16 10/12/16 Range/Units 06:50 06:50 RBC 3.41 L (4.30-5.90) m/uL Hgb 10.5 L (13.0-17.5) gm/dL Hct 32.1 L (39.0-53.0) % ABG pH (7.35-7.45) ABG pCO2 (35-45) mmHg ABG pO2 (83-108) mmHg ABG HCO3 (21-25) mmol/L ABG O2 Saturation (94-97) % ABG Hematocrit (34.0-46.0) % ABG Sodium (135-146) mmol/L Glucose 101 H (74-99) mg/dL POC Glucose (mg/dL) (75-99) mg/dL Alkaline Phosphatase 37 L (38-126) U/L Total Protein 5.3 L (6.3-8.2) g/dL Albumin 3.1 L (3.5-5.0) g/dL Assessment and Plan Plan: #1 Non-ST elevation myocardial infarction. #2 Coronary artery disease status post coronary artery bypass grafting utilizing a WATT to the LAD, WATT to the KERA to the diagonal and OM 1. Postoperative day #3 #3 remote history of pulmonary embolism following hernia surgery about 20 years ago. #4 Hypertension, history of. Recommendation: Continue present treatment plan including incentive spirometry, deep cough and deep breathing, bronchodilators, continue ambulation, possible discharge planning in the next 24 hours. Time with Patient: Less than 30
[2016-10-12 11:55] LABS: Glucose,Whole Blood 121 mg/dL (75-99)
--- NOTE | 2016-10-12 14:17 | P.PN ---
Subjective Principal diagnosis: CAD and status post CABG This is a pleasant 71-year-old gentleman who presented to the hospital with a chest discomfort consistent was unstable angina. He underwent a heart catheterization which showed critical disease involving the proximal LAD with post stenotic predilatation and lesion involving the diagonal is well. He underwent CABG 2 with WATT to LAD and KERA to diagonal. From the standpoint, he is doing well. He has been maintaining normal sinus mechanism. He is on dual antiplatelet therapy along with a statin. Objective - Vital Signs Vital signs: Vital Signs Temp 98.1 F 10/12/16 11:40 Pulse 75 10/12/16 13:32 Resp 16 10/12/16 11:40 BP 120/72 10/12/16 11:40 Pulse Ox 96 10/12/16 11:40 Intake & Output 10/11/16 10/12/16 10/12/16 18:59 06:59 18:59 Intake Total 710 880 Output Total 1055 500 500 Balance -345 -500 380 Weight 93.8 kg Intake: Intake, IV Titration 250 Amount Lactated Ringers 1,000 ml 250 @ 20 mls/hr IV .Q24H TRACEY Rx#:[id number] Oral 460 880 Output: Chest Tube Drainage 120 200 Chest Tube Left Anterior 60 60 Chest Chest Tube Right Anterior 40 140 Chest Mediastinal 20 Urine 935 300 500 Other: Voiding Method Toilet Urinal Urinal Urinal # Voids 3 2 ABP, PAP, CO, CI - Last Documented Arterial Blood Pressure 131/53 Pulmonary Artery Pressure 24/15 Cardiac Output 8.5 Cardiac Index 4.2 - Constitutional General appearance: Present: no acute distress - Labs CBC & Chem 7: 10/12/16 06:50 10/12/16 06:50 Labs: Abnormal Lab Results - Last 24 Hours (Table) 10/09/16 10/09/16 10/09/16 Range/Units 08:37 11:18 11:56 RBC (4.30-5.90) m/uL Hgb (13.0-17.5) gm/dL Hct (39.0-53.0) % ABG pH 7.47 H (7.35-7.45) ABG pCO2 30 L 32 L (35-45) mmHg ABG pO2 171 H 76 L (83-108) mmHg ABG HCO3 20 L 20 L (21-25) mmol/L ABG O2 Saturation 99.6 H 97.6 H (94-97) % ABG Hematocrit 32 L (34.0-46.0) % ABG Sodium (135-146) mmol/L Glucose (74-99) mg/dL POC Glucose (mg/dL) (75-99) mg/dL Alkaline Phosphatase (38-126) U/L Total Protein (6.3-8.2) g/dL Albumin (3.5-5.0) g/dL 10/09/16 10/09/16 10/09/16 Range/Units 12:17 12:50 13:33 RBC (4.30-5.90) m/uL Hgb (13.0-17.5) gm/dL Hct (39.0-53.0) % ABG pH 7.32 L (7.35-7.45) ABG pCO2 (35-45) mmHg ABG pO2 165 H (83-108) mmHg ABG HCO3 20 L (21-25) mmol/L ABG O2 Saturation 97.1 H 99.4 H (94-97) % ABG Hematocrit 31 L 30 L 31 L (34.0-46.0) % ABG Sodium 147 H (135-146) mmol/L Glucose (74-99) mg/dL POC Glucose (mg/dL) (75-99) mg/dL Alkaline Phosphatase (38-126) U/L Total Protein (6.3-8.2) g/dL Albumin (3.5-5.0) g/dL 10/11/16 10/12/16 10/12/16 Range/Units 20:40 06:04 06:50 RBC 3.41 L (4.30-5.90) m/uL Hgb 10.5 L (13.0-17.5) gm/dL Hct 32.1 L (39.0-53.0) % ABG pH (7.35-7.45) ABG pCO2 (35-45) mmHg ABG pO2 (83-108) mmHg ABG HCO3 (21-25) mmol/L ABG O2 Saturation (94-97) % ABG Hematocrit (34.0-46.0) % ABG Sodium (135-146) mmol/L Glucose (74-99) mg/dL POC Glucose (mg/dL) 126 H 103 H (75-99) mg/dL Alkaline Phosphatase (38-126) U/L Total Protein (6.3-8.2) g/dL Albumin (3.5-5.0) g/dL 10/12/16 10/12/16 Range/Units 06:50 11:52 RBC (4.30-5.90) m/uL Hgb (13.0-17.5) gm/dL Hct (39.0-53.0) % ABG pH (7.35-7.45) ABG pCO2 (35-45) mmHg ABG pO2 (83-108) mmHg ABG HCO3 (21-25) mmol/L ABG O2 Saturation (94-97) % ABG Hematocrit (34.0-46.0) % ABG Sodium (135-146) mmol/L Glucose 101 H (74-99) mg/dL POC Glucose (mg/dL) 121 H (75-99) mg/dL Alkaline Phosphatase 37 L (38-126) U/L Total Protein 5.3 L (6.3-8.2) g/dL Albumin 3.1 L (3.5-5.0) g/dL Assessment and Plan Plan: Assessment #1 status post CABG 2 as described above #2 dyslipidemia Plan #1 continue the dual antiplatelet therapy and statin #2 continue metoprolol as well #3 follow-up with the patient
--- NOTE | 2016-10-12 15:24 | PN ---
DATE OF SERVICE: 10/12/2016 PRESENTING COMPLAINT: Chest discomfort. INTERVAL HISTORY: This is a 71-year-old gentleman who presented to the hospital with chest discomfort consistent with unstable angina, underwent a heart catheterization, which showed critical vessel disease involving the proximal LAD and a lesion involving diagonal as well. Patient is now postop day 3 from a CABG x2 with WATT to LAD and KERA to diagonal. Today patient is awake, alert, sitting in the chair, feeling good. Review of systems done for constitutional, cardiovascular, GI, pulmonary; relevant findings as above. CURRENT MEDICATIONS: [place], DuoNeb, aspirin, Lipitor, Dulcolax, Plavix, heparin, insulin, Toradol, milk of magnesia, Reglan, Lopressor. PHYSICAL EXAMINATION: VITAL SIGNS: Temperature 98.6. Blood pressure 125/64, respiratory rate 18, pulse oximetry 98% on 2 liters, pulse 77. GENERAL APPEARANCE: Patient is awake, sitting in the chair, receiving a breathing treatment, in good spirits. No acute distress noted. EYES: Pupils equal. Conjunctivae normal. NECK: JVD not raised. Mass not palpable. Respiratory effort normal. LUNGS: Diminished breath sounds bilaterally to the bases. CARDIOVASCULAR: S1, S2 sounds are normal. Trace edema noted to bilateral lower extremities. NABEEL hose in place ABDOMEN: Soft, nontender. Positive bowel sounds x4. PSYCHIATRIC: Alert and oriented x3. Mood and affect are normal. CHEST WALL: Sternum stable. Incision clean and dry and dressing shows no signs of drainage. INVESTIGATIONS: Chest x-ray dated 10/12/2016 revealed resolved pulmonary vascular congestion, improved lung volumes with minimal by basilar segmental atelectasis. ASSESSMENT: 1. Coronary artery disease with 2 vessel disease, status post coronary artery bypass graft x2 postop day 3. 2. Acute blood loss anemia as expected from surgery. 3. Hypoalbuminemia as acute phase reactant. 4. Atelectasis bibasilar. 5. Body mass index 31.4. 6. Osteoarthritis specifically to bilateral hips and bilateral feet. 7. Hypertension. 8. Remote history of pulmonary embolism. PLAN: 1. Status post CABG x2 postop day postop day #3. Continue aspirin and Plavix. Chest tubes to be removed later today, by Cardiothoracic Surgery. Will continue to monitor patient's progress. 2. Hemoglobin 10.5 today up from previous value of 9.9. Will continue to monitor patient's progress daily. 3. Hypoalbuminemia. Patient's albumin today is 3.1. Continue to encourage patient to eat and encourage protein rich of foods. 4. Bibasilar atelectasis improved today, however, Cardiothoracic Surgery considering Lasix possibly tomorrow. Will continue to monitor. 5. BMI 31.4. Patient on a low fat, low sodium diet. 6. Osteoarthritis. Continue pain medication as discomfort warrants. 7. Hypertension. Continue metoprolol b.i.d. 8. Remote history of PE. Patient currently on Plavix. Patient was seen and examined by DEAN Fernandez and all elements of case discussed with attending, Dr. Reyes.
[2016-10-12 16:23] LABS: Glucose,Whole Blood 114 mg/dL (75-99)
[2016-10-12 16:28] VITALS: RESP 18
[2016-10-12] MEDS: SENNOSIDES-DOCUSATE SODIUM 1 EACH TAB PO SCH (20:39)
[2016-10-12 21:13] LABS: Glucose,Whole Blood 137 mg/dL (75-99)
[2016-10-13] MEDS: HYDROcodone/APAP 5-325MG 1 EACH TAB PO PRN ×3 (01:24→11:31)
--- NOTE | 2016-10-13 05:45 | PN ---
DATE OF SERVICE: 10/12/2016 ATTENDING NOTE: This patient was seen and examined by me. Patient is feeling better, sitting up on a chair. Actually he walked in the hallway. No pain ( ). Tolerating his diet. ON EXAM: LUNGS: Slightly decreased breath sounds. CARDIOVASCULAR: First and second sounds normal. INVESTIGATIONS: Hemoglobin is 10.5. ASSESSMENT: 1. Status post coronary artery bypass 2-vessel day 3. 2. Acute blood loss anemia as expected from surgery. 3. Hypoalbuminemia as an acute phase reactant. 4. Atelectasis bilateral bibasal. 5. Obesity, body mass index of 31.4. 6. Primary osteoarthritis including bilateral hips and both the feet. 7. Essential hypertension. 8. Remote history of pulmonary embolism. PLAN: Continue current medication and treatment plan. Care was discussed with the patient and I agree with the note of my nurse practitioner.
[2016-10-13] MEDS: KETOROLAC 30 MG/ML 1 ML VIAL IVP SCH ×3 (05:54→11:46)
[2016-10-13] MEDS: PANTOPRAZOLE 40 MG TABLET PO SCH (05:55)
[2016-10-13 06:07] VITALS: TEMP 98.1
[2016-10-13 06:10] LABS: Glucose,Whole Blood 107 mg/dL (75-99)
[2016-10-13] MEDS: INSULIN LISPRO (humaLOG) 300 UNIT/3 ML VIAL SQ SCH ×2 (06:41→11:34)
[2016-10-13 06:45] LABS: Basophils % (A) 0 %; CH 31.2; CHCM 33.5; Eosinophils # (A) 0.2 k/uL (0-0.7); Eosinophils % (A) 4 %; HCT 33.9 % (39.0-53.0); HDW 2.46; HGB 11.2 gm/dL (13.0-17.5); Luc # (Auto) 0.18; Luc % (Auto) 3; Lymphocytes # (A) 1.2 k/uL (1.0-4.8); Lymphocytes % (A) 19 %; MCV 93.8 fL (80.0-100.0); Mean Platelet Volume 7.3; Monocytes # (A) 0.4 k/uL (0-1.0); Monocytes % (A) 7 %; Neutrophils # (A) 4.2 k/uL (1.3-7.7); Neutrophils % (A) 67 %; RBC 3.61 m/uL (4.30-5.90); RDW 12.7 % (11.5-15.5); WBC 6.2 k/uL (3.8-10.6); WBC (Perox) 6.61
[2016-10-13 07:01] LABS: ALT 46 U/L (21-72); AST 49 U/L (17-59); Alkaline Phosphatase 48 U/L (38-126); Anion Gap 11 mmol/L; Blood Urea Nitrogen 21 mg/dL (9-20); Calcium 9.2 mg/dL (8.4-10.2); Carbon Dioxide 25 mmol/L (22-30); Chloride 103 mmol/L (98-107); Glucose 105 mg/dL (74-99); Non-African American GFR(MDRD) >60 (>60 ml/min/1.73 sqM); Potassium 4.1 mmol/L (3.5-5.1); Sodium 139 mmol/L (137-145); Total Bilirubin 0.7 mg/dL (0.2-1.3); Total Protein 5.9 g/dL (6.3-8.2)
[2016-10-13] MEDS: METOPROLOL TARTRATE 25 MG TAB PO SCH (07:51)
[2016-10-13] MEDS: ASPIRIN 325 MG TAB PO SCH (07:52)
[2016-10-13] MEDS: HEPARIN SODIUM,PORCINE 5,000 UNIT/ML 1 ML VIAL SQ SCH ×2 (07:52)
[2016-10-13] MEDS: ATORVASTATIN 40 MG TAB PO SCH (07:52)
[2016-10-13] MEDS: CLOPIDOGREL 75 MG TAB PO SCH (07:52)
--- NOTE | 2016-10-13 08:27 | XR ---
EXAMINATION TYPE: XR chest 2V DATE OF EXAM: 10/13/2016 7:17 AM COMPARISON: 10/12/2016 TECHNIQUE: PA and lateral views submitted. HISTORY: Post chest tube removal FINDINGS: Chest tube is been removed. No sizable pneumothorax. Basilar subsegmental changes are seen with tiny effusion. Postoperative change and cardiomegaly. IMPRESSION: 1. No sizable pneumothorax post chest tube tube removal 2. Bilateral subsegmental atelectasis or infiltrate with tiny effusion.
--- NOTE | 2016-10-13 09:03 | P.PN ---
Progress Note - Text CV Surgery Nursing Principal diagnosis: Non-STEMI. Double vessel coronary artery disease. History of previous pulmonary embolism with evidence of thrombosed superficial greater saphenous veins bilaterally, chronic. Hypertension. Hyperlipidemia. Preserved left ventricular function. POD #4 total arterial non-aortic arch triple off-pump coronary artery bypass grafting using the skeletonized in situ left internal mammary artery to the left anterior descending artery, skeletonized right internal mammary artery as a free graft off the left internal mammary artery to the first diagonal artery in a [id number] fashion, then to the first obtuse marginal artery in an end to side fashion. Intraoperative transesophageal echocardiogram and epi-aortic scanning. Intraoperative graft flow measurement using the Medist[employer] system. Patient awake and alert, no distress noted, no specific complaints. He is sitting up to the bedside chair eating his breakfast. His is at his bedside, questions answered. Vital Signs: Afebrile Vital Signs - 24 hr 10/12/16 10/12/16 10/12/16 11:40 13:15 13:32 Temperature 98.1 F Pulse Rate 75 75 Pulse Rate [ 75 Pulse Oximetery ] Respiratory 16 Rate Blood Pressure 120/72 [Right Arm Sitting] Blood Pressure [Right Arm] O2 Sat by Pulse 96 Oximetry 10/12/16 10/12/16 10/13/16 16:00 20:30 00:00 Temperature 97.3 F L 96.8 F L Pulse Rate Pulse Rate [ 86 87 90 Pulse Oximetery ] Respiratory 18 18 18 Rate Blood Pressure [Right Arm Sitting] Blood Pressure 118/65 130/70 138/65 [Right Arm] O2 Sat by Pulse 94 L 91 L 94 L Oximetry 10/13/16 10/13/16 04:00 08:00 Temperature 98.1 F 98.1 F Pulse Rate Pulse Rate [ 84 84 Pulse Oximetery ] Respiratory 18 18 Rate Blood Pressure 127/69 124/62 [Right Arm Sitting] Blood Pressure [Right Arm] O2 Sat by Pulse 93 L 94 L Oximetry Labs: Short CBC 10/13/16 Range/Units 05:48 WBC 6.2 (3.8-10.6) k/uL Hgb 11.2 L (13.0-17.5) gm/dL Hct 33.9 L (39.0-53.0) % Plt Count 224 (150-450) k/uL Neutrophils # 4.2 (1.3-7.7) k/uL BMP 10/13/16 05:48 Sodium 139 Potassium 4.1 Chloride 103 Carbon Dioxide 25 BUN 21 H Creatinine 0.90 Glucose 105 H Calcium 9.2 Liver Function 10/13/16 Range/Units 05:48 Total Bilirubin 0.7 (0.2-1.3) mg/dL AST 49 (17-59) U/L ALT 46 (21-72) U/L Alkaline Phosphatase 48 (38-126) U/L Albumin 3.6 (3.5-5.0) g/dL Lungs: Essentially clear throughout, diminished bilateral bases. Respirations are symmetrical and unlabored. O2 sat: 94% on room air. I/S: 1500 mL, reviewed with the patient important of using his incentive spirometry every hour while awake. We also discussed the importance of using his incentive spirometry even at home after discharge. The patient did give a good return demonstration on his incentive spirometry. Heart: S1S2, regular rhythm and rate, negative for S3, gallop or murmur. Remote telemetry showing normal sinus rhythm heart rate 73. Sternum stable, chest incision clean with dressing clean and dry. Heart hugger in place, patient demonstrating proper use of his heart hugger. Knee-high NABEEL hose and sequential compression devices in place to his bilateral lower extremities. Abdomen: Soft, Positive bowel sounds present in all 4 quadrants. Patientis passing flatus, denies having a bowel movement since surgery. CBGs: 103-137 mg/dL in the last 24 hours. U/O: Adequate. 24 hr Total: Intake & Output 10/11/16 10/12/16 10/13/16 10/14/16 06:59 06:59 06:59 06:59 Intake Total 1741.540 210 8730 Output Total 2493 1555 800 Balance -751.684 -846 440 Weight 91.7 kg 93.8 kg Active Medications Hydrocodone Bitart/Acetaminophen ([place] 5-325) 2 each PO Q4HR PRN PRN Reason: Severe Pain Last Admin: 10/13/16 07:04 Dose: 2 each Hydrocodone Bitart/Acetaminophen ([place] 5-325) 1 each PO Q4HR PRN PRN Reason: Moderate Pain Last Admin: 10/11/16 02:49 Dose: 1 each Albuterol/Ipratropium (Duoneb 0.5 Mg-3 Mg/3 Ml Soln) 3 ml INHALATION RT-Q2H PRN PRN Reason: Shortness Of Breath Or Wheezing Albuterol/Ipratropium (Duoneb 0.5 Mg-3 Mg/3 Ml Soln) 3 ml INHALATION RT-QID [facility] Last Admin: 10/12/16 20:27 Dose: Not Given Aspirin (Aspirin) 325 mg PO DAILY [facility] Last Admin: 10/13/16 07:52 Dose: 325 mg Atorvastatin Calcium (Lipitor) 40 mg PO DAILY [facility] Last Admin: 10/13/16 07:52 Dose: 40 mg Bisacodyl (Dulcolax) 10 mg RECTAL DAILY PRN PRN Reason: Constipation Clopidogrel Bisulfate (Plavix) 75 mg PO DAILY [facility] Last Admin: 10/13/16 07:52 Dose: 75 mg Heparin Sodium (Porcine) (Heparin) 5,000 unit SQ Q8HR [facility] Last Admin: 10/13/16 07:52 Dose: 5,000 unit Phenylephrine HCl 40 mg/ (Sodium Chloride) 254 mls @ 0 mls/hr IV .Q0M PRN; Protocol; Per Protocol PRN Reason: OPEN HEART Insulin Human Lispro (Humalog) 0 unit SQ ACHS [facility] PRN Reason: Protocol Last Admin: 10/13/16 06:41 Dose: Not Given Ketorolac Tromethamine (Toradol) 15 mg IVP Q6HR [facility] Stop: 10/14/16 07:31 Last Admin: 10/13/16 05:54 Dose: 15 mg Lisinopril (Zestril) 10 mg PO DAILY@1200 [facility]ACEY Magnesium Hydroxide (Milk Of Magnesia) 2,400 mg PO BID PRN PRN Reason: Constipation Metoclopramide HCl (Reglan) 10 mg IVP Q4H PRN PRN Reason: Nausea And Vomiting Metoprolol Tartrate (Lopressor) 25 mg PO BID [facility] Last Admin: 10/13/16 07:51 Dose: 25 mg Miscellaneous Information (Magnesium Per Protocol) 1 each MISCELLANE DAILY PRN ; Protocol PRN Reason: Per Protocol Miscellaneous Information (Phosphorus Per Protocol) 1 each MISCELLANE DAILY PRN ; Protocol PRN Reason: Per Protocol Miscellaneous Information (Potassium Per Protocol) 1 each MISCELLANE DAILY PRN ; Protocol PRN Reason: Per Protocol Ondansetron HCl (Zofran) 4 mg IVP Q6HR PRN PRN Reason: Nausea And Vomiting Last Admin: 10/11/16 03:20 Dose: 4 mg Pantoprazole Sodium (Protonix) 40 mg PO AC-BRKFST [facility] Last Admin: 10/13/16 05:55 Dose: 40 mg Senna/Docusate Sodium (Senokot-S) 2 each PO HS [facility] Last Admin: 10/12/16 20:39 Dose: 2 each Plan: 1. Continue aspirin, statin, beta hua, Plavix. 2. He will be started back on his home dose of lisinopril 10 mg by mouth daily. 3. Increase activity, ambulate in room. Physical therapy to follow. 4. Incentive spirometry encouraged every hour while awake. 5. Discharge planning in place, he will be followed by [facility] upon discharge. 6. GI/DVT prophylaxis. 7. Discharge home today, discharge instructions reviewed with the patient and his .
[2016-10-13] MEDS: IPRATROPIUM-ALBUTEROL 3 ML NEB INHALATION SCH ×3 (09:24→13:10)
[2016-10-13 11:35] LABS: Glucose,Whole Blood 99 mg/dL (75-99)
--- NOTE | 2016-10-13 11:42 | PN ---
DATE OF SERVICE: 10/13/2016 PRESENTING COMPLAINT: Chest discomfort. INTERVAL HISTORY: This is a 71-year-old gentleman who presented to the hospital with chest discomfort consistent with unstable angina, underwent heart catheterization, which also showed critical vessel disease involving the proximal LAD and lesion involving the diagonal as well. Patient is now postop day 4 from a CABG x2 with WATT to LAD and KERA to diagonal. Today patient is awake, alert, sitting in a chair. anxious to go home. Review of systems done for constitutional, cardiovascular, GI, pulmonary; relevant findings as above. CURRENT MEDICATIONS: [place], DuoNeb, aspirin, Lipitor, Dulcolax, Plavix, heparin, insulin, Toradol, milk of magnesia, Reglan, Lopressor. PHYSICAL EXAM: VITAL SIGNS: Temperature 98.1, pulse 84, respiratory rate 18, blood pressure 139/67, oxygen saturation 94% on room air. GENERAL APPEARANCE: Patient is awake, alert, sitting in the chair. and niece at the bedside. Patient in good spirits talking about going home. No acute distress noted. EYES: Pupils equal. Conjunctivae normal. NECK: JVD not raised. Mass not palpable. RESPIRATORY: Effort normal. LUNGS: Diminished breath sounds bilaterally to the bases. CARDIOVASCULAR: S1, S2 sounds are normal. Trace edema noted to bilateral lower extremities. NABEEL hose in place. ABDOMEN: Soft, nontender. Bowel sounds positive x4. PSYCHIATRIC: Alert and oriented x3. Mood and affect are normal. CHEST WALL: Sternum stable. Incision clean, dry and intact with dressing shows no signs of drainage. INVESTIGATIONS: Hemoglobin 11.2. Chest x-ray reveals chest tube has been removed. No sizable pneumothorax. Basilar subsegmental changes have been seen with tiny effusion. Postoperative changes and cardiomegaly. ASSESSMENT: 1. Status post coronary artery bypass grafting x2 vessels, postop day $. 2. Acute blood loss anemia as expected from surgery. 3. Hypoalbuminemia as an acute phase reactant. 4. Atelectasis bilateral bibasal. 5. Obesity; body mass index of 31.4. 6. Primary osteoarthritis including bilateral hips and both the feet. 7. Essential hypertension. 8. Remote history of pulmonary embolism. PLAN: Continue current medication and treatment plan. Patient is planning to go home today. Patient was seen and examined by nurse practitioner, Abril Fernandez, and all elements of case discussed with attending, Dr. Reyes.
[2016-10-13] MEDS ORDERED: LISINOPRIL 10 MG TAB PO SCH (12:00)
--- NOTE | 2016-10-13 12:20 | P.DS ---
Providers Date of admission: 10/06/16 12:45 Attending physician: Ariel Ascencio Consults: 10/06/16 16:18 Consult Anesthesia Routine Consulting Provider: Anesthesia,Services Consult Reason/Comments: Cardiac Surgery Pre-Op Consult Physician Routine Consulting Provider: Aman Lizama Consult Reason/Comments: pre-op cabg Do you want consulting provider notified?: Yes 10/09/16 14:03 Consult Physician Routine Consulting Provider: Felicitas Boo Consult Reason/Comments: med managment Do you want consulting provider notified?: Already Contacted [facility] Course: FINAL DIAGNOSIS: 1.[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] 2.[Unstable angina] 3.[Hyperlipidemia] 4.[Hypertension] 5.[History of pulmonary embolism with evidence of thrombosed superficial greater saphenous veins bilaterally, chronic] 6.[Preserved left ventricular function] 7.[Non-ST elevation myocardial infarction this admission] PRINCIPAL PROCEDURE: 1.[Selective right and left coronary artery angiogram with left ventriculography ] 2.[Urgent total arterial non-aortic arch triple off pump coronary artery bypass grafting using the skeletonized in situ left internal mammary artery to the left anterior descending coronary artery, the skeletonized right internal mammary artery as a free graft off the left internal mammary artery to the first diagonal coronary artery in a [id number]-[id number] fashion, and the first obtuse marginal coronary artery in an end-to-side fashion.] 3.[Intraoperative transesophageal echocardiogram and epi-aortic scanning.] 4.[Intraoperative graft flow measuring using the [employer] sytem.] HISTORY OF PRESENT ILLNESS: [This is a 71-year-old gentleman who is followed by Dr. Lon Chapman on an outpatient basis. On 10/06/2016 the patient presented to the emergency department here at [facility] with complaints of chest pain which radiated to both his neck and jaw. He also had complaints of shortness of breath. Subsequently the patient had a 12-lead EKG completed which showed normal sinus rhythm with nonspecific changes in his inferior leads. Lab work was also completed which demonstrated abnormal troponins as high as 0.253 ng/ml. Due to the patient's presenting symptoms and abnormal troponins he was evaluated by Dr. Morales from [facility]ology associates. Dr. Morales reviewed the patient's above-mentioned findings with the patient and an urgent cardiac catheterization was recommended. ] HOSPITAL COURSE:[ The patient was admitted to the hospital and after obtaining consent underwent a cardiac catheterization performed by Dr. Morales. His heart cath results demonstrated a 50% stenosis to his right coronary artery distally to the bifurcation of his PDA and PLV branch, and 80-90% critical stenosis to his mid left circumflex coronary artery, and a 90-95% stenosis to his proximal left anterior descending coronary artery. He also underwent a 2-D echocardiogram which showed trace tricuspid regurgitation, trace mitral regurgitation, moderate concentric left ventricular hypertrophy, and an overall left ventricular systolic function which is normal with an ejection fraction between 55 and 60%. The above-mentioned studies were reviewed with the patient by Dr. Morales and by Dr. Ascencio from cardiothoracic surgery and an urgent coronary artery bypass grafting surgery was recommended. Subsequently, after obtaining consent the patient was taken to the operating room Dr. Ascencio and underwent an urgent total atrial non-aortic arch triple off pump coronary artery bypass grafting surgery using the skeletonized in situ left internal mammary artery to the left anterior descending coronary artery, the skeletonized right internal mammary artery as a free graft off the left internal mammary artery to the first diagonal coronary artery in a [id number] fashion, and the first obtuse marginal coronary artery in an end to side fashion. He also underwent an intraoperative transesophageal echocardiogram, epi-aortic scanning, and intraoperative graft flow measurement using the [employer] system. The patient was subsequently transferred to the cardiovascular intensive care unit where he was recovered, monitored hemodynamically, extubated, and where he progressed cardiac rehabilitation phase 1. He was subsequent transferred to [address] [place] [address] for further monitoring and rehabilitation.] COMPLICATIONS: [There were no postoperative complications.] CONSULTATIONS: 1.[Dr. James for cardiology management] 2.[Dr. Lizama for pulmonary and ventilator management] 3.[Dr. Cantu for medical management] DISCHARGE INSTRUCTIONS: 1. No driving for 4 weeks, or until physician gives their ok. 2. The patient should sleep in their own bed, no medical bed needed. 3. Stairs are not an issue. If the bedroom is upstairs, it is advised that the patient go up at night and down in the morning for the first week. Go slowly, using handrail and take 1 step at a time. 4. NABEEL hose are to be worn for 30 days or until physician discontinues. 5. Heart hugger is to be worn 100% of the time until physician discontinues.( excepet when showering) 6. No lifting, pushing, or pulling more than 10 pounds for 12 weeks. The physician will advise of any restriction changes. 7. The patient is expected to continue the prescribed walking program. 8. Continue pain control per as needed orders. 9. Continue with incentive spirometry and splinting/heart hugger until otherwise directed by the physician. 10. Must shower daily using liquid antibacterial soap and a separate white washcloth for each individual incision. HOME HEALTH SERVICES TO PROVIDE: RN SKILLED HOME CARE SERVICES FOR POST-OP SURGICAL PATIENTS WITH THE FOLLOWING: Coronary Artery Bypass Surgery (CABG), Mitral Valve Replacement/ Repair ( MVR), Aortic Valve Replacement/Repair (AVR) RN TO CONTINUE EDUCATION FROM ``ROAD TO A HEALTH HEART PATIENT EDUCATION MANUAL (GIVEN TO PATIENT IN THE HOSPITAL) MEDICATION RECONCILIATION WITH EDUCATION NEEDED ON FIRST HOME VISIT EMPHASIZE IMPORTANCE OF WEARING BREAST SUPPORT/HEART HUGGER ENCOURAGE USE OF INCENTIVE SPIROMETER 10 X EVERY HOUR WHILE AWAKE ENCOURAGE UTILIZATION OF LOWER EXTREMITY COMPRESSION STOCKINGS/NABEEL HOSE and ELEVATE LEGS ABOVE LEVEL OF HEART WHILE AT REST. ENCOURAGE AMBULATION 3-5x/day INCREASING TOLERATES, WHILE AVOID EXTREMES IN TEMPERATURE FREQUENCY: RN TO OPEN THE PATIENT WITHIN 24 HOURS OF DISCHARGE FROM THE HOSPITAL WITH TELEHEALTH INSTALLED AT [facility] [place], RN TO VISIT 2-3 X A WEEK FOR 4 WEEKS ESTABLISHED BY PATIENT NEEDS. REMOVAL OF SUTURES: NURSING SERVICES TO REMOVE SUTURES TWO WEEKS POST SURGICAL DATE 10/23/2016. If any questions regarding suture removal please call the office at [phone]. LABORATORY: CBC, CMP TO BE DRAWN ON THE THIRD DAY HOME, 10/16/2016 STAT) FAX RESULTS TO [phone]. TELEHEALTH PARAMETERS: WEIGHT: NOTIFY MD OF WEIGHT GAIN OF 2 LBS IN 24 HOURS OR 5 LBS IN ONE WEEK HR: NOTIFY MD OF HR <55 BPM OR HR>100 BPM BP: NOTIFY MD IF BP <90/55 OR BP>140/100 O2 SAT: NOTIFY MD IF PO2<93% ON ROOM AIR SEND TELEHEALTH REPORT TO SOLE CONFORMING MACHINE OPERATOR AND CARDIOVASCULAR SURGEON THE FIRST WEEK OF CARE AND THEN BI-WEEKLY. PLEASE ADDITIONALLY COMMUNICATE ANY ABNORMALS AND NEW FINDINGS TO THE SURGEONS OFFICE. Plan - Discharge Summary New Discharge Prescriptions: HYDROcodone/APAP 5-325MG [[place] 5-325] 1 - 2 each PO Q6HR PRN #120 tab PRN Reason: Moderate Pain Atorvastatin [Lipitor] 40 mg PO DAILY #30 tab Clopidogrel [Plavix] 75 mg PO DAILY #30 tab Lisinopril [Zestril] 10 mg PO DAILY@1200 #30 tab Metoprolol Tartrate [Lopressor] 25 mg PO BID #30 tab Pantoprazole [Protonix] 40 mg PO AC-BRKFST #30 tablet.dr Discharge Medication List Aspirin 325 mg PO DAILY PRN 10/06/16 [History] Atorvastatin [Lipitor] 40 mg PO DAILY #30 tab 10/13/16 [Rx] Clopidogrel [Plavix] 75 mg PO DAILY #30 tab 10/13/16 [Rx] HYDROcodone/APAP 5-325MG [[place] 5-325] 1 - 2 each PO Q6HR PRN #120 tab 10/13/16 [Rx] Lisinopril [Zestril] 10 mg PO DAILY@1200 #30 tab 10/13/16 [Rx] Metoprolol Tartrate [Lopressor] 25 mg PO BID #30 tab 10/13/16 [Rx] Pantoprazole [Protonix] 40 mg PO AC-BRKFST #30 tablet. 10/13/16 [Rx] Follow up Appointment(s)/Referral(s): Aman Lizama MD [STAFF PHYSICIAN] - 11/04/16 9:00 am Brenda Saez NPC [Nurse Practitioner] - 10/17/16 2:00 pm Lon Chapman DO [Primary Care Provider] - 1 Week (Dr. Chapman office will call with a follow-up appointment per office staff.) Denys Morales MD [STAFF PHYSICIAN] - 10/27/16 4:30 pm Ariel Ascencio MD [STAFF PHYSICIAN] - 11/07/16 11:30 am [facility] Visiting Nurse, [NON-STAFF] - Ambulatory/Diagnostic Orders: Complete Blood Count w/diff [LAB.AMB] Time Frame: 3 Days, Location: Determined By Patient Comprehensive Metabolic Panel [LAB.AMB] Time Frame: 3 Days, Location: Determined By Patient Patient Instructions/Handouts: Heart Healthy Diet (DC), Sternal Precautions ( GEN), Coronary Artery Bypass Graft (DC)
[2016-10-13 12:44] VITALS: BP 129/64
[2016-10-13 13:13] VITALS: PULSE 78
[2016-10-13 14:44] VITALS: BMI 31.4
--- NOTE | 2016-10-13 14:51 | P.PN ---
Subjective Principal diagnosis: Chest pain This is a pleasant 71-year-old gentleman with past medical history significant for hypertension who presented to the hospital with symptoms of chest discomfort. He was taken to the cardiac catheterization lab by Dr. James where he was found to have critical two-vessel coronary artery disease involving the mid left circumflex and proximal LAD with aneurysmal LAD in that area as well. Intermediate disease in the distal right coronary artery. Patient is status post coronary bypass grafting surgery, he is seen and evaluated on the telemetry unit today. Hemodynamically stable. Feeling well overall. Reaching 1500 on his incentive spirometry. Objective - Vital Signs Vital signs: Vital Signs Temp 98.1 F 10/13/16 08:00 Pulse 78 10/13/16 13:16 Resp 18 10/13/16 12:00 BP 129/64 10/13/16 12:00 Pulse Ox 96 10/13/16 12:00 Intake & Output 10/12/16 10/13/16 10/13/16 18:59 06:59 18:59 Intake Total 1240 Output Total 800 Balance 440 Weight 93.8 kg 93.8 kg 93.8 kg Intake: Oral 1240 Output: Urine 800 Other: Voiding Method Urinal Toilet # Voids 1 1 1 ABP, PAP, CO, CI - Last Documented Arterial Blood Pressure 131/53 Pulmonary Artery Pressure 24/15 Cardiac Output 8.5 Cardiac Index 4.2 - Exam PHYSICAL EXAMINATION: HEENT: Head is atraumatic, normocephalic. Pupils equal, round. Neck is supple. There is no elevated jugular venous pressure. HEART EXAMINATION: Heart S1, S2 normal. No murmur or gallop heard. CHEST EXAMINATION: Lungs are clear to auscultation and precussion. No chest wall tenderness is noted on palpation or with deep breathing. ABDOMEN: Soft, nontender. Bowel sounds are heard. No organomegaly noted. Right groin soft, no evidence of any hematoma. EXTREMITIES: 2+ peripheral pulses with no evidence of peripheral edema and no calf tenderness noted. NEUROLOGIC patient is awake, alert and oriented -3. . - Labs CBC & Chem 7: 10/13/16 05:48 10/13/16 05:48 Labs: Abnormal Lab Results - Last 24 Hours (Table) 10/12/16 10/12/16 10/13/16 Range/Units 16:21 21:11 05:48 RBC 3.61 L (4.30-5.90) m/uL Hgb 11.2 L (13.0-17.5) gm/dL Hct 33.9 L (39.0-53.0) % BUN (9-20) mg/dL Glucose (74-99) mg/dL POC Glucose (mg/dL) 114 H 137 H (75-99) mg/dL Total Protein (6.3-8.2) g/dL 10/13/16 10/13/16 Range/Units 05:48 06:09 RBC (4.30-5.90) m/uL Hgb (13.0-17.5) gm/dL Hct (39.0-53.0) % BUN 21 H (9-20) mg/dL Glucose 105 H (74-99) mg/dL POC Glucose (mg/dL) 107 H (75-99) mg/dL Total Protein 5.9 L (6.3-8.2) g/dL Assessment and Plan (1) S/P cardiac cath Status: Acute (2) 2-vessel coronary artery disease Status: Acute (3) HTN (hypertension) Status: Acute (4) Hyperlipemia Status: Acute (5) Non-STEMI (non-ST elevated myocardial infarction) Status: Acute Plan: From cardiology standpoint, we will continue the patient on his current medications. The able to be discharged home today from cardiology's perspective. We will make him a follow-up appointment to see Dr. James in the office post discharge. DNP note has been reviewed, I agree with a documented findings and plan of care. Patient was seen and examined.
--- NOTE | 2016-10-13 17:59 | PN ---
This is a 71-year-old male with a history mnu-ZO-ubudzou-elevation myocardial infarction and postoperative day #4, status post 2-vessel bypass grafting. The patient is doing relatively well. He has a history of pulmonary embolism following hernia surgery and a history of hypertension. No other major medical problems. He is doing relatively well. Possible discharge in the next 24 to 48 hours. No respiratory issues. He has been weaned off oxygen therapy. He has been relatively stable postoperatively. Current vital signs are reviewed. Temperature 98.1, heart rate 84, respiratory rate 18, blood pressure 131/66, room-air saturation 94%. Appears in no acute distress. HEENT examination is grossly unremarkable. Mucous membranes are moist. No oral lesion. Neck is supple. Full range of motion. No adenopathy or thyromegaly. Neck veins are flat. Cardiovascular examination reveals regular rhythm and rate. S1, S2 normal. No S3, S4 or murmur. Lungs reveal relatively clear breath sounds. No wheezes or rhonchi. No crackles. Breath sounds are equal bilaterally. Abdomen is soft. Bowel sounds are heard. Extremities are intact. No cyanosis, clubbing or edema. Skin is without rash. Neurological examination is brief but nonfocal. Labs are reviewed. White count 6.2, hemoglobin 11.3, hematocrit 33.9, platelet count 224,000. Sodium, potassium, chloride, CO2 all normal. BUN and creatinine were 21 and 0.9. The rest of the labs look okay. Chest x-ray was done today which shows evidence of no pneumothorax status post chest tube removal. There was some bibasilar atelectasis. Small effusions. Medications are reviewed. ASSESSMENT: 1. Postoperative day #4, status post 2-vessel bypass grafting. 2. Previous history of pulmonary embolism following hernia repair. 3. Plr-QH-xqjsjpe-elevation myocardial infarction. 4. History of hypertension. PLAN: Will continue to follow closely. No additional recommendations are made. Possible discharge in the next 24 to 48 hours. The patient will have followup in the office with one of the doctors.
--- NOTE | 2016-10-14 08:04 | PN ---
DATE OF SERVICE: 10/13/2016 ATTENDING NOTE: This patient was seen and examined by me today. Patient was discussed with the nurse practitioner, Ms. Fernandez and I agree with her note. Patient is doing better, u tolerating his diet. is at the bedside. On exam, lungs improved air entry. CARDIOVASCULAR: First and second sounds normal. PSYCH: Alert oriented x3. INVESTIGATIONS: Hemoglobin 11.2, white count 6.2. BUN 21, creatinine 0.9. ASSESSMENT: 1. Status post coronary artery bypass grafting. 2. Coronary artery disease. 3. Essential hypertension. PLAN: Overall, doing much better. If patient discharged, should follow up with his family doctor. Questions were answered.
--- NOTE | 2016-10-15 14:24 | P.ARTDOP ---
Arterial Doppler LOWER EXTREMITY ARTERIAL DOPPLER: DATE OF SERVICE: 10/07/16 Reason for study: Pre-CABG. Doppler waveforms: Multiphasic bilaterally throughout. Pulse volume recording: []. Pressure gradients: None. Ankle-brachial indices: Greater than 1 bilaterally. Toe pressures: [] on the right, [] on the left Impression: Normal study.
--- NOTE | 2016-10-15 14:25 | P.VSCSTY ---
Greater Saphenous Vein Mapping This is bilateral lower extremity greater saphenous vein mapping. Date of service 10/07/16 Vein quality and ultrasound appearance veins are thick-walled and appear to be filled with thrombus.. Vein size groin right [ ] groin left [ ] High thigh right [ ] high thigh left [ ] Mid thigh right [ ] mid thigh left [ ] Above-knee right [ ] above-knee left [ ] Below knee right [] below- knee left [] Mid calf right [] mid calf left [] Ankle right [] ankle left [] Impression thrombus present through both greater saphenous veins. No visible conduit available..
== END 2016-10-13 14:59 | disposition home health service (06) | DRG 234 ==
LOC: EC 10:59 → 6SEL 12:45 → 6ICU 10-09 07:26 → 6SEL 10-11 14:49
PROVIDERS: ADMIT Surgery; ATTEND Surgery
PROC: 4A023N7 Measurement of Cardiac Sampling and Pressure, Left Heart, Percutaneous Approach (ICD-10-PCS; 2016-10-06)
PROC: B2111ZZ Fluoroscopy of Multiple Coronary Arteries using Low Osmolar Contrast (ICD-10-PCS; 2016-10-06)
PROC: B2151ZZ Fluoroscopy of Left Heart using Low Osmolar Contrast (ICD-10-PCS; 2016-10-06)
PROC: 02110A3 Bypass Coronary Artery, Two Arteries from Coronary Artery with Autologous Arterial Tissue, Open Approach (ICD-10-PCS; 2016-10-09)
PROC: 02100Z9 Bypass Coronary Artery, One Artery from Left Internal Mammary, Open Approach (ICD-10-PCS; principal; 2016-10-09 08:00)
DX: I21.4 Non-ST elevation (NSTEMI) myocardial infarction (principal); D62 Acute posthemorrhagic anemia; J98.11 Atelectasis; I82.813 Embolism and thrombosis of superficial veins of lower extremities, bilateral; E88.09 Other disorders of plasma-protein metabolism, not elsewhere classified; I08.1 Rheumatic disorders of both mitral and tricuspid valves; E66.9 Obesity, unspecified; E78.5 Hyperlipidemia, unspecified; I10 Essential (primary) hypertension; M19.91 Primary osteoarthritis, unspecified site; J30.2 Other seasonal allergic rhinitis; R91.1 Solitary pulmonary nodule; R09.82 Postnasal drip; I25.10 Atherosclerotic heart disease of native coronary artery without angina pectoris; R45.1 Restlessness and agitation; Z68.31 Body mass index [BMI] 31.0-31.9, adult; Z79.82 Long term (current) use of aspirin; Z79.899 Other long term (current) drug therapy; Z82.49 Family history of ischemic heart disease and other diseases of the circulatory system
CPT/HCPCS: 36415; 36620; 71010; 71020; 80048; 80053; 80061; 80074; 81003; 82330; 82550; 82553; 82805; 83036; 83735; 83880; 84100; 84132; 84443; 84484; 85025; 85520; 85610; 85730; 86850; 86891; 86900; 86901; 86920; 87070; 87086; 93005; 93306; 93458; 93880; 93923; 93970; 94002; 94150; 94640; 94760; 96374; 99291

== ENCOUNTER → 2021-12-23 | Outpatient (CLI) | payer MEDICARE ==
[2021-12-23 19:03] LABS: ALT 25 U/L (10-49); AST 20 U/L (14-35); Chol/HDL Ratio 3.25 Ratio; LDL Cholesterol,Calculated 68.6 mg/dL (0.0-131.0)
== END | disposition home or self-care (01) ==
LOC: LABWHC1 10:57
PROVIDERS: ATTEND Internal Medicine Interventional Cardiology
DX: E78.2 Mixed hyperlipidemia (principal)
CPT/HCPCS: 36415; 80061; 84450; 84460

== ENCOUNTER → 2023-08-18 | Outpatient (CLI) | payer MEDICARE ==
[2023-08-18 11:24] LABS: ALT 25 U/L (10-49); AST 25 U/L (14-35); Chol/HDL Ratio 3.22 Ratio; LDL Cholesterol,Calculated 61.4 mg/dL (0.0-131.0)
== END | disposition home or self-care (01) ==
LOC: LABWHC1 07:35
PROVIDERS: ATTEND Internal Medicine Interventional Cardiology
DX: E78.2 Mixed hyperlipidemia (principal)
CPT/HCPCS: 36415; 80061; 84450; 84460